=== PATIENT | female | born 1955 | race Caucasian/White ===

== ENCOUNTER → 2018-10-09 17:34 | Outpatient (CLI) | payer MEDICARE, SELFPAY ==
[2018-10-09 18:15] LABS: Basophils # 0.1 K/mm3 (0-0.2); Basophils % 0.9 % (0.1-2.0); Eosinophils # 0.2 K/mm3 (0.0-0.4); Eosinophils % 2.1 % (0.1-12.0); Hematocrit 45.7 % (37.0-47.0); Hemoglobin 14.4 g/dL (12.2-16.2); Lymphocytes # 3.8 K/mm3 (0.7-4.5); Lymphocytes % 36.8 % (10-50); Mean Corpuscular HGB Conc 31.6 g/dL (31.8-35.4); Mean Corpuscular Volume 91.8 fl (81-99); Monocytes # 0.6 K/mm3 (0.1-1.0); Neutrophils # 5.6 K/mm3 (1.8-7.8); Neutrophils % 54.2 % (37.0-80.0); Platelet Count 415 K/mm3 (142-424); Red Blood Count 4.98 M/mm3 (4.20-5.40); Red Cell Distribution Width 14.6 % (11.5-17.5); White Blood Count 10.3 K/mm3 (4.8-10.8)
[2018-10-09 18:36] LABS: Alanine Aminotransferase 21 U/L (12-78); Albumin Level 3.7 gm/dL (3.4-5.0); Albumin/Globulin Ratio 0.9 (1.1-1.8); Alkaline Phosphatase 108 U/L (46-116); Anion Gap 13.4 mEq/L (5-15); Aspartate Amino Transferase 10 U/L (15-37); Bilirubin,Total 0.4 mg/dL (0.2-1.0); Blood Urea Nitrogen 11 mg/dL (7-18); Calcium 9.3 mg/dL (8.5-10.1); Carbon Dioxide 28 mmol/L (21.0-32.0); Chloride 104 mmol/L (98-107); Chol/HDL Ratio 3.6 (1-3.5); Cholesterol 129 mg/dL (140-200); Creatinine,Serum 1.05 mg/dL (0.55-1.02); Estimated Glomerular Filt Rate 53 ml/min (>60); Free T4 (Free Thyroxine) 1.02 ng/dl (0.76-1.46); GFR (African American) 64 ML/MIN (>60); Glucose 106 mg/dL (74-106); HDL Cholesterol 36 mg/dL (29-89); LDL Cholesterol 67 mg/dL (0-130); Potassium 4.4 mmoL/L (3.5-5.1); Sodium 141 mmol/L (136-145); Total Protein,Serum 7.7 gm/dL (6.4-8.2); Triglycerides 129 mg/dL (30-200); VLDL Cholesterol 26 mg/dL (0-40)
[2018-10-09 20:40] LABS: Hemoglobin A1C 6.1 % (0.0-7.0)
[2018-10-11 17:02] LABS: Microalbumin, Urine <3.0 ug/mL (Not Estab.)
[2018-10-12 10:38] LABS: Vitamin D 25 Hydroxy 21.7 ng/mL (30.0-100.0)
== END ==
PROVIDERS: Visit Provider Emergency Medicine
DX: R53.83 Other fatigue (principal); E13.9 Other specified diabetes mellitus without complications; Z79.84 Long term (current) use of oral hypoglycemic drugs
CPT/HCPCS: 80053; 80061; 82043; 82652; 83036; 84439; 84443; 85025

== ENCOUNTER → 2018-12-08 16:33 | Outpatient (CLI) | payer MEDICARE, SELFPAY ==
[2018-12-08 19:20] LABS: Amphetamine/Metha Screen,Urine Negative ng/mL (<1000); Barbiturates Screen,Urine Negative ng/mL (<200); Benzodiazepines Screen,Urine Negative ng/mL (<200); Cannabinoid Screen,Urine Negative ng/mL (<50); Cocaine Screen,Urine Negative ng/mL (<300); Methadone Screen,Urine Negative ng/mL (<300); Opiate Screen,Urine Negative ng/mL (<300); Phencyclidine Screen,Urine Negative ng/mL (<25)
== END ==
PROVIDERS: Visit Provider Emergency Medicine
DX: Z79.899 Other long term (current) drug therapy (principal)
CPT/HCPCS: 80305

== ENCOUNTER → 2019-01-06 13:43 | Outpatient (CLI) | payer MEDICARE, SELFPAY ==
--- NOTE | 2019-01-06 13:55 | XR_ITS ---
PROCEDURE: XR KNEE RT 4V CLINICAL INDICATION: right knee pain COMPARISON: KNEE3L KNEE-3 VIEWS-LT from 11/16/2013 KNEE3L KNEE-3 VIEWS-LT from 03/22/2014 FINDINGS: No fracture or dislocation. No lytic or blastic change. There is normal mineralization. Moderate osteoarthritic changes are present involving the medial compartment with mild osteoarthritis of the lateral compartment and patellofemoral joint. There is a loose body is superior to the medial tibial spine which measures approximately 7 mm. Osteophytes are also present at this region. There is mild lateral tibial subluxation Other findings:None. IMPRESSION: Osteoarthritic change with loose body at the tibial spine area Dictated by: Ajay Parmar MD 01/06/2019 16:10 Electronically signed by Ajay Parmar MD in [place] 01/06/2019 16:10
--- NOTE | 2019-01-06 13:55 | XR_ITS ---
PROCEDURE: XR KNEE LT 4V CLINICAL INDICATION: left knee pain Fall with left knee pain COMPARISON: KNEE3L KNEE-3 VIEWS-LT from 11/16/2013 KNEE3L KNEE-3 VIEWS-LT from 03/22/2014 FINDINGS: Moderate osteoarthritic changes are present involving the medial compartment with mild to moderate osteoarthritic change of the lateral compartment and patellofemoral joint. These findings have progressed since the previous exams.. No fracture or dislocation. There is mild lateral tibial subluxation. Calcification is present along the medial femoral condyle and may be due to an old ligamentous injury. Other findings:None. IMPRESSION: Moderate osteoarthritic changes which have somewhat progressed Dictated by: Ajay Parmar MD 01/06/2019 16:13 Electronically signed by Ajay Parmar MD in [place] 01/06/2019 16:13
--- NOTE | 2019-01-06 14:15 | XR_ITS ---
PROCEDURE: XR HIP RT 2-3V W/PELVIS CLINICAL INDICATION: right hip pain Right hip pain with limited mobility COMPARISON: PELAP PELVIS AP ONLY from 05/18/2012 FINDINGS: There are mild osteoarthritic changes of the right hip. No fracture or dislocation evident. IMPRESSION: Mild osteoarthritis right hip Dictated by: Ajay Parmar MD 01/06/2019 16:07 Electronically signed by Ajay Parmar MD in [place] 01/06/2019 16:07
--- NOTE | 2019-01-06 14:15 | XR_ITS ---
PROCEDURE: XR HIP LT 2-3V W/PELVIS CLINICAL INDICATION: left hip pain COMPARISON: PELAP PELVIS AP ONLY from 05/18/2012 FINDINGS: No fracture or dislocation. There are mild osteoarthritic changes of the left hip. No lytic or blastic change. There is a clip in the left pelvic region. IMPRESSION: Mild osteoarthritis left hip Dictated by: Ajay Parmar MD 01/06/2019 16:08 Electronically signed by Ajay Parmar MD in [place] 01/06/2019 16:08
== END ==
PROVIDERS: PCP Emergency Medicine; Visit Provider Orthopaedic Surgery
DX: M25.562 Pain in left knee (principal); M25.561 Pain in right knee; M25.552 Pain in left hip; M25.551 Pain in right hip
CPT/HCPCS: 73502; 73564

== ENCOUNTER → 2019-04-05 17:49 | Outpatient (CLI) | payer MEDICARE, MEDICAID, SELFPAY ==
[2019-04-05 19:45] LABS: Amphetamine/Metha Screen,Urine Negative ng/mL (<1000); Barbiturates Screen,Urine Negative ng/mL (<200); Benzodiazepines Screen,Urine Negative ng/mL (<200); Cannabinoid Screen,Urine Negative ng/mL (<50); Cocaine Screen,Urine Negative ng/mL (<300); Methadone Screen,Urine Negative ng/mL (<300); Opiate Screen,Urine Negative ng/mL (<300); Phencyclidine Screen,Urine Negative ng/mL (<25)
[2019-04-12 17:09] LABS: Opiates Negative (Cutoff=100)
== END ==
PROVIDERS: Visit Provider Emergency Medicine
DX: M25.512 Pain in left shoulder (principal); Z79.899 Other long term (current) drug therapy
CPT/HCPCS: 80305; 80361; 80365; G0480

== ENCOUNTER 2019-06-12 18:34 | Emergency (ER) | payer MEDICARE, SELFPAY ==
[2019-06-12 19:01] VITALS: BP 191/89; PULSE 75; RESP 18; TEMP 36.5; O2SAT 98; BMI 37.5
--- NOTE | 2019-06-12 19:08 | XR_ITS ---
PROCEDURE: XR CHEST PORTABLE CLINICAL HISTORY: sob and fever for 3 weeks COMPARISON: CXR1 CHEST-PORTABLE from 04/08/[address] CHEST W/O CONTRAST from 03/22/2014 XR CHEST 2V from 03/07/2019 XR CHEST PORTABLE from 06/02/2019 FINDINGS: The lung mcclure are well expanded. There is slightly prominent bronchovascular markings in the right perihilar region and right lower lobe more so than was seen on the recent chest film of 06/02/2019. The right upper lung field and left lung mcclure are clear. The cardiac silhouette and vascularity are normal, there is no pleural fluid. There monitor lines overlying the chest. IMPRESSION: Somewhat accentuated bronchovascular markings and scattered opacities at the right base and and a minimal pneumonic infiltrate cannot be excluded Dictated by: Dr. Collins Espinal MD 06/12/2019 20:[address] Collins Espinal MD in [place] 06/12/2019 20:41
--- NOTE | 2019-06-12 19:09 | ECG_ITS ---
APPROVED REPORT Exam: Resting ECG HR:72 bpm ECG Measurements Heart Rate 72 AXES LA 136 P QRSd 86 QRS -40 QT 404 T -15 QTc 442 <Conclusion> Normal sinus rhythm Left axis deviation Nonspecific ST-T wave abnormalities Abnormal ECG Electronically signed by : Jadiel Jones, 06/13/2019 21:07:16
--- NOTE | 2019-06-12 19:20 | PC.NURSE ---
received report from rn that previous iv attempts unsuccessful. appropriate ppe donned and iv placed to right forearm. blood, strep and flu obtained and sent to lab. pt repositioned in bed, no acute distress. some anxiety noted. discussed process of receiving results and ed physician coming in to talk to her. call light in reach. no additional requests at this time
--- NOTE | 2019-06-12 19:25 | HMH.EDSOB ---
ED Disposition Condition on Discharge: Good <Colten Ayala - Last Filed: 06/12/19 19:25> - Critical Care Critical Care Time: No <Jarvis Charlton - Last Filed: 06/12/19 20:31> Clinical Impression: Viral URI with cough Disposition: Home, Self-Care Instructions: DI for Cough -- Adult Additional Instructions: fluids and see pcp for follow up Referrals: Bennett Thomas MD [Primary Care Provider] - Attestation: On 06/12/19, the high probability of a clinically significant, sudden or life threatening deterioration of the following system(s) required my full and direct attention, intervention and personal management. The time I documented below is in addition to time spent performing reported procedures but includes the following listed in this critical care notation. Medical Decision Making - Medical Records Medical records reviewed: Yes: I reviewed the patient's medical records. - Ajit Inquiry Pt receiving controlled substance: No - Lab Data Lab results reviewed: Yes: I reviewed the patient's lab results. <Colten Ayala - Last Filed: 06/12/19 19:25> - Lab Data Result diagrams: 06/12/19 19:45 06/12/19 19:45 <Jarvis Charlton - Last Filed: 06/12/19 20:31> Vital Signs: 06/12/19 19:01 06/12/19 19:45 06/12/19 20:05 Temperature 97.7 F Temperature Source Oral Pulse Rate [Left Brachial] 75 74 71 Respiratory Rate 18 20 20 Blood Pressure [Right Arm] 191/89 H 154/100 H 173/84 H Blood Pressure Mean [Right Arm] 123 118 113 Blood Pressure Source [Right Arm] Manual Cuff/ Palpation Blood Pressure Position [Right Arm] Sitting 02 Sat by Pulse Oximetry 98 97 98 Oxygen Delivery Method Room Air Room Air Room Air - Lab Data Lab Results 06/12/19 18:55: Influenza Type A Ag Negative, Influenza Type B Ag Negative 06/12/19 19:45: WBC 11.8 H, RBC 4.25, Hgb 12.8, Hct 38.8, MCV 91.3, MCH 30.0, MCHC 32.9, RDW 13.3, Plt Count 354, MPV 9.0, Neut % (Auto) 61.7, Lymph % (Auto) 30.1, [place] % (Auto) 5.1, Eos % (Auto) 2.3, Baso % (Auto) 0.8, Neut # (Auto) 7.3, Lymph # (Auto) 3.6, [place] # (Auto) 0.6, Eos # (Auto) 0.3, Baso # (Auto) 0.1 06/12/19 19:45: Sodium 134 L, Potassium 3.9, Chloride 100, Carbon Dioxide 27, Anion Gap 10.9, BUN 12, Creatinine 0.80, Estimated Creat Clear 92, Estimated GFR 72, Est GFR ( Amer) 87, Glucose 89, Calcium 9.6, Total Bilirubin 0.4, AST 22, ALT 14, Alkaline Phosphatase 80, Troponin I < 0.01, Total Protein 7.3, Albumin 4.1, Globulin 3.2, Albumin/Globulin Ratio 1.3 06/12/19 19:45: Lactate 1.1 06/12/19 20:14: Group A Strep Rapid Negative Orders (Tests/Meds): ORDERS Category Date Time Status Chest XR -- portable [XR chest portable] Stat Exams 06/12/19 19:08 Taken SARS-CoV-2, BARTOLOME Stat Lab 06/12/19 20:04 Ordered Troponin I Q3H Lab 06/12/19 22:15 Ordered Troponin I Q3H Lab 06/13/19 01:15 Ordered Blood Culture Stat Micro 06/12/19 19:43 Received Strep Screen Confirmation Stat Micro 06/12/19 20:14 Received Resp/SOB HPI - General Mode of Arrival: Ambulatory Limitations: No Limitations Description of Symptoms (Recalled from ER Triage Doc. by RN): to ed per pvt car with c/o cough, generalized weakness and pain, intermittent fever up to 101, sob, diarrhea, headache, sorethroat, chills. pt states seen by pcp 1 week ago and dx with bronchitis pt states she was seen at the [facility] 1 week ago unsure of results. pt states she is progressively worse. <Colten Ayala - Last Filed: 06/12/19 19:25> - History of Present Illness MD Complaint: shortness of breath, cough Onset (ago): day(s) Severity: moderate Associated symptoms: denies other symptoms - Related Data Home oxygen amount: none <Jarvis Charlton - Last Filed: 06/12/19 20:31> - General Chief Complaint: Shortness of Breath/Dyspnea Stated Complaint: possible bronc. lung pain Time Seen by Provider: 06/12/19 19:20 - History of Present Illness 64-year-old female presents here to the ED with increased conge
--- NOTE | 2019-06-12 19:32 | PC.NURSE ---
RN at the bedside attempting IV stick
--- NOTE | 2019-06-12 19:32 | PC.NURSE ---
v/s delayed due to IV attempts
[2019-06-12 19:45] VITALS: BP 154/100; PULSE 74; RESP 20; O2SAT 97
[2019-06-12 19:57] LABS: Basophils # 0.1 K/mm3 (0-0.2); Basophils % 0.8 % (0.1-2.0); Eosinophils # 0.3 K/mm3 (0.0-0.4); Eosinophils % 2.3 % (0.1-12.0); Hematocrit 38.8 % (37.0-47.0); Hemoglobin 12.8 g/dL (12.2-16.2); Lymphocytes # 3.6 K/mm3 (0.7-4.5); Lymphocytes % 30.1 % (10-50); Mean Corpuscular HGB Conc 32.9 g/dL (31.8-35.4); Mean Corpuscular Volume 91.3 fl (81-99); Monocytes # 0.6 K/mm3 (0.1-1.0); Monocytes % 5.1 % (1.7-9.3); Neutrophils # 7.3 K/mm3 (1.8-7.8); Neutrophils % 61.7 % (37.0-80.0); Platelet Count 354 K/mm3 (142-424); Red Blood Count 4.25 M/mm3 (4.20-5.40); Red Cell Distribution Width 13.3 % (11.5-17.5); White Blood Count 11.8 K/mm3 (4.8-10.8)
[2019-06-12 19:58] LABS: Lactic Acid 1.1 mmol/L (0.7-2.1)
--- NOTE | 2019-06-12 19:58 | PC.NURSE ---
rad iology at bedside for portable chest. appropriate ppe worn during exam.
[2019-06-12 20:00] LABS: Alanine Aminotransferase 14 U/L (12-78); Albumin Level 4.1 g/dl (3.5-5.0); Albumin/Globulin Ratio 1.3 (1.1-1.8); Alkaline Phosphatase 80 U/L (38-126); Anion Gap 10.9 mEq/L (5-15); Aspartate Amino Transferase 22 U/L (14-36); Bilirubin,Total 0.4 mg/dl (0.2-1.3); Blood Urea Nitrogen 12 mg/dl (7-17); Calcium 9.6 mg/dl (8.4-10.2); Carbon Dioxide 27 mmol/L (22.0-30.0); Chloride 100 mmol/L (98-107); Creatinine Clearance Estimated 92 mL/min (50-200); Estimated Glomerular Filt Rate 72 ml/min (>60); GFR (African American) 87 ML/MIN (>60); Globulin 3.2 g/dL (1.3-3.2); Glucose 89 mg/dl (74-100); Potassium 3.9 mmoL/L (3.5-5.1); Sodium 134 mmol/L (136-145); Total Protein,Serum 7.3 g/dl (6.3-8.2)
--- NOTE | 2019-06-12 20:04 | PC.NURSE ---
discussed covid testing with covid nursing. order placed per md recommendation r/t symptoms
[2019-06-12 20:05] VITALS: BP 173/84; PULSE 71; RESP 20; O2SAT 98
[2019-06-12 20:13] LABS: Troponin I < 0.01 ng/ml (0.00-0.034)
--- NOTE | 2019-06-12 20:15 | PC.NURSE ---
pt requests we discuss care with myesha, her niece who also lives with her. explained to niece that patient was stable and awaiting test results. covid nurse made aware of physicians request to test. paperwork initiated. lab notified of test. waiting on strep screen prior to test.
[2019-06-12 20:25] LABS: Strep Scrn Group A (Rapid) Negative (Negative)
[2019-06-12 20:38] VITALS: BP 184/121; PULSE 76; RESP 17; TEMP 36.9; O2SAT 100
--- NOTE | 2019-06-12 20:38 | PC.NURSE ---
covid swab obtained per lab, [facility]. ppe worn during procedure. iv removed per protocol after given meds. pt discharge discussed at length to self quarantine inside home. information given to myesha, her niece as requested. all have been advised that covid nurse will contact them when results come back.
--- NOTE | 2019-06-12 20:40 | PC.NURSE ---
pt ambulated out of facility without difficulty. no acute distress noted. given a mask for her family members in her household (2). instructed on handwashing. no dyspnea. no additional complaints. verbalizes understanding
--- NOTE | 2019-06-16 17:24 | PC.NURSE ---
notified patient of negative COVID 19 results.
--- NOTE | 2019-06-16 17:25 | PC.NURSE ---
notified of negative COVID 19 results
[2019-06-16 17:31] LABS: Covid-19 Nasal PCR Sendout Lex NOT DETECTED
== END 2019-06-12 20:45 | disposition home or self-care (01) ==
PROVIDERS: Emergency Medicine; Emergency Provider Family Medicine; PCP Internal Medicine Adolescent Medicine
DX: J06.9 Acute upper respiratory infection, unspecified (principal); E11.9 Type 2 diabetes mellitus without complications; K21.9 Gastro-esophageal reflux disease without esophagitis; F41.9 Anxiety disorder, unspecified; Z90.09 Acquired absence of other part of head and neck; Z90.79 Acquired absence of other genital organ(s); Z79.899 Other long term (current) drug therapy
CPT/HCPCS: 71045; 80053; 83605; 84484; 85025; 87040; 87275; 87276; 87430; 93005; 96365; 96374; 96375; 99284

== ENCOUNTER → 2019-10-29 17:48 | Outpatient (CLI) | payer MEDICARE, MEDICAID, SELFPAY ==
[2019-10-29 18:12] LABS: Basophils # 0.1 K/mm3 (0-0.2); Basophils % 0.5 % (0.1-2.0); Eosinophils # 0.3 K/mm3 (0.0-0.4); Eosinophils % 2.6 % (0.1-12.0); Hematocrit 37.8 % (37.0-47.0); Hemoglobin 12.6 g/dL (12.2-16.2); Lymphocytes # 2.5 K/mm3 (0.7-4.5); Lymphocytes % 21.9 % (10-50); Mean Corpuscular HGB Conc 33.4 g/dL (31.8-35.4); Mean Corpuscular Hemoglobin 31.1 pg (27.0-31.2); Mean Corpuscular Volume 93.2 fl (81-99); Mean Platelet Volume 10.4 fl (7.4-10.4); Monocytes # 0.5 K/mm3 (0.1-1.0); Monocytes % 4.1 % (1.7-9.3); Neutrophils % 70.9 % (37.0-80.0); Platelet Count 298 K/mm3 (142-424); Red Blood Count 4.06 M/mm3 (4.20-5.40); Red Cell Distribution Width 13.8 % (11.5-17.5); White Blood Count 11.3 K/mm3 (4.8-10.8)
[2019-10-29 18:14] LABS: Chloride 106 mmol/L (98-107)
[2019-10-29 18:15] LABS: Potassium 4.4 mmoL/L (3.5-5.1); Sodium 141 mmol/L (136-145)
[2019-10-29 18:17] LABS: Alanine Aminotransferase 14 U/L (12-78); Alkaline Phosphatase 94 U/L (38-126); Anion Gap 13.4 mEq/L (5-15); Aspartate Amino Transferase 20 U/L (14-36); Bilirubin,Total 0.3 mg/dl (0.2-1.3); Blood Urea Nitrogen 21 mg/dl (7-17); Carbon Dioxide 26 mmol/L (22.0-30.0); Cholesterol 127 mg/dl (140-200); Estimated Glomerular Filt Rate 50 ml/min (>60); GFR (African American) 61 ML/MIN (>60); Triglycerides 104 mg/dl (30-150); VLDL Cholesterol 21 mg/dL (0-40)
[2019-10-29 18:18] LABS: Albumin Level 3.7 g/dl (3.5-5.0); Albumin/Globulin Ratio 1.3 (1.1-1.8); Calcium 9.3 mg/dl (8.4-10.2); Chol/HDL Ratio 3.4 (1-3.5); Globulin 2.8 g/dL (1.3-3.2); Glucose 138 mg/dl (74-100); HDL Cholesterol 37 mg/dl (40-60); Total Protein,Serum 6.5 g/dl (6.3-8.2)
[2019-10-29 18:37] LABS: T4 (Thyroxine) 8.5 ug/dl (5.53-11.0)
[2019-10-29 18:50] LABS: Thyroid Stimulating Hormone 1.75 uIU/mL (0.465-4.68)
[2019-10-29 18:59] LABS: Direct LDL Cholesterol 75.66 mg/dL (100-129)
== END ==
PROVIDERS: Visit Provider Nurse Practitioner Family
DX: E11.9 Type 2 diabetes mellitus without complications (principal); I10 Essential (primary) hypertension; M54.9 Dorsalgia, unspecified; E66.9 Obesity, unspecified; Z79.84 Long term (current) use of oral hypoglycemic drugs
CPT/HCPCS: 80053; 80061; 83036; 84436; 84443; 85025

== ENCOUNTER → 2020-01-06 10:27 | Outpatient (CLI) | payer MEDICARE, MEDICAID, SELFPAY ==
--- NOTE | 2020-01-06 | CA_ITS ---
APPROVED REPORT Exam: Pharmacologic Technologist: Dorcas García, Ht: 5 ft 6 in Wt: 233 lbs BSA: 2.13 m2 HR: 52 bpm BP: 167/72 mmHg Rhythm: NSR,LOW VOLTAGE QRS Medical History Medical History: HTN, Hyperlipidemia, Diabetic ??? Noninsulin Medications: Lisinopril,,,,, Metformin,,,,, Gabapentin,,,,, Lexapro,,,,, Atorvastatin,,,,, Iron,,,,, Lasix,,,,, Albuterol,,,,, Plavix,,,,, CitrIZINE,,,,, Vistaril,,,,, Aripiprazole,,,,, Allergies: No known drug allergies Cardiac Risk Factors: HTN, Hyperlipidemia, Diabetes (non-insulin), FHX of CAD Stress Test Details Test: LEXISCAN HR Resting HR: 53 bpm Max Heart Rate (APMHR): 156 bpm Max HR Achieved: 75 bpm Target HR (85% APMHR): 132 bpm % of APMHR: 48 Recovery HR: 61 bpm BP Resting BP: 167.0/72.0 mmHg Max BP: 167.0/72.0 mmHg Recovery BP: 167.0/71.0 mmHg ECG Resting ECG: NSR,LOW VOLTAGE QRS Clinical Exercise duration: 04:11 min Highest Stage Achieved: Exercise capacity: 1.0 METs Stress ECG Conclusion DURING INFUSION PATIENT HAD SOA AND MALAISE. NO CHEST PAIN. NO ARRHYTHMIAS/ECTOPY. NO SIGNIFICANT CHANGES. UNREMARKABLE LEXISCAN STRESS. MYOVIEW IMAGES REPORTED SEPARATELY. Electronically signed by : Marcelino Chu, 01/06/2020 16:24:13
--- NOTE | 2020-01-06 10:28 | CA_ITS ---
APPROVED REPORT EXAM: Comprehensive 2D, Doppler, and color-flow Echocardiogram Taxi Servicer: Yessy Long RVT Ht: 5 ft 6 in Wt: 235lbs BSA: 2.14 BP: 130/68 mmHg Indications: CP,PRE-OP.DM.HTN.HLD.SOA.[place],OBESITY,MELIA 2D Dimensions LVOT 2.01 cm (M/F) 1.5-2.5 M-Mode Dimensions RVDd 2.77 cm (0.9-2.6) LA Diam 3.96 cm (1.9-4.0) LVDd 4.82 cm (3.5-5.7) Ao Diam 2.55 cm (2.0-3.7) LVDs 3.26 cm (3.5-5.7) IVSd 0.53 cm (0.6-1.1) PWd 1.56 cm (0.6-1.1) EF (Teich) 60.60% FS 32.40% EDV (Teich) 108.60 mL ESV (Teich) 42.80 mL LV Diastology E Decel Time 390.00 (160-240 msec) E/A Ratio 1.0 MED E' 6.50 (< 7 cm/sec) E'/MED E' Ratio 15.86 (>14) LAT E' 7.80 (<10 cm/sec) E/LAT E' Ratio 13.22 (>14) Mitral Valve MV E Max Chin. 103.00 (40-130 cm/s) MV A Velocity 107.00 (40-130 cm/s) E/A Ratio 0.97 MV Decel. Time 390.00 (160-240 ms) MV PHT 114.00 ms Pulmonary Valve PV Peak Velocity 81.00 (50-150 cm/s) Tricuspid Valve TR P. Velocity 266.00 cm/s Left Ventricle Left atrium is mildly enlarged, left ventricle is normal size, mild concentric left ventricular hypertrophy, visually estimated ejection fraction 50% with no regional wall motion abnormality, grade 1 diastolic dysfunction seen with tissue Doppler evidence of raise left atrial pressure. Right Ventricle Right atrium and right ventricle are mildly enlarged with normal contractility. Aortic Valve Aortic valve is minimally thickened and fibrosed, there is no aortic stenosis or aortic insufficiency. Mitral Valve Mitral valve grossly normal, there is mild mitral regurgitation. Tricuspid Valve Tricuspid valve grossly normal, there is mild tricuspid regurgitation, tricuspid regurgitation jet velocity is inadequate for calculation of the right ventricular systolic pressure. Pulmonic Valve Pulmonic valve is poorly visualized. Great Vessels Aortic root is normal size. Pericardium No significant pericardial effusion noted. Conclusion 1. Biatrial enlargement, normal left ventricular size, mild concentric left ventricular hypertrophy, visually estimated ejection fraction 50% with no regional wall motion abnormality, grade 1 diastolic dysfunction seen with tissue Doppler evidence of raise left atrial pressure. 2. Mildly enlarged right ventricle with normal contractility. 3. Mild mitral and tricuspid regurgitation. 4. No significant pericardial effusion noted. Electronically signed by : Marcelino Chu, 01/06/2020 16:14:55
--- NOTE | 2020-01-06 10:54 | NM_ITS ---
APPROVED REPORT Exam: Nuclear Stress Test Indication: HTN, D.M., FM HX, PRE-OP Patient Location: Outpatient Stress Tech: Jodiskinny Nina IA Tech:Luisa Canales AYANAMichael RT(R)(N) Ht: 5 ft 5 in Wt: 219 lbs Bra Size: 44D HR: 52 bpm BP: 167/72 mmHg BSA: 2.06 m2 BMI: 36.4 History: HTN, NeishaM., FM HX, PRE-OP Procedure: Patient received a 0.4 mg of intravenous Lexiscan, resting heart rate 52 bpm, resting blood pressure 167/72 mmHg, with Lexiscan maximum heart rate achived was 72 bpm which is Less than 85 % of the maximum predicted heart rate and blood pressure was 160/64 mmHg. With Lexiscan, patient denied any complaint of chest pain. Electrocardiogram Resting electrocardiogram showed sinus rhythm, with Lexiscan there is less than 1.[address] segment depression noted from the baseline EKG. The EKG portion of the Lexiscan Myoview is nondiagnostic. Cardiac Stress and Resting SPECT Images: Cardiac Stress and Resting SPECT images were obtained using technetium 99m Myoview 32.9 mCi stress and 10.89 mCi at rest. Gated SPECT for analysis of segmental wall motion and calculation of the ejection fraction also done. Cardiac stress and resting SPECT images show uniform myocardial activity without segmental perfusion abnormality, computer derived ejection fraction is 61% with no regional wall motion abnormality, right ventricle is normal size and contractility. Conclusion: 1. The EKG portion of the Lexiscan Myoview is nondiagnostic 2. No scintigraphic evidence of reversible ischemia seen, computer derived ejection fraction 61% with no regional wall motion abnormality, right ventricle is normal size and contractility. 3. Normal Lexiscan Myoview study. Electronically signed by : Marcelino Chu, 01/06/2020 16:27:26
--- NOTE | 2020-01-06 13:38 | HMH.ITSHM ---
Current Home Medications as stated by this patient Celina Paredes or sales representative gas service. [] atenolol budesonide cetirizine clopidgrel gabapentin trazodone metformin
== END ==
PROVIDERS: PCP Emergency Medicine; Visit Provider Physician Assistant
DX: E13.9 Other specified diabetes mellitus without complications (principal); E66.9 Obesity, unspecified; G47.33 Obstructive sleep apnea (adult) (pediatric); I10 Essential (primary) hypertension; R06.00 Dyspnea, unspecified; R07.89 Other chest pain; Z01.810 Encounter for preprocedural cardiovascular examination; Z82.49 Family history of ischemic heart disease and other diseases of the circulatory system; Z87.891 Personal history of nicotine dependence
CPT/HCPCS: 78452; 93017; 93306; A9502; J2785

== ENCOUNTER → 2020-06-14 14:19 | Outpatient (CLI) | payer MEDICARE, MEDICAID, SELFPAY ==
[2020-06-14 14:34] LABS: Microscopic, Urine URINE MICROSCOPIC (MICROSCOPIC)
--- NOTE | 2020-06-14 14:46 | XR_ITS ---
PROCEDURE: XR KNEE LT 4V CLINICAL INDICATION: templating marker for total knee arthroplasty Pain COMPARISON: CR XR KNEE RT 4V from 01/06/2019 CR XR KNEE LT 4V from 01/06/2019 CR XR KNEE RT 3V from 03/16/2019 CR XR KNEE LT 3V from 03/16/2019 FINDINGS: Severe osteoarthritic changes are present involving the left knee involving all 3 compartments. There is lateral subluxation of the tibia by approximately 9 mm. There are images also obtained for templating with metallic rounded marker in place along the lateral aspect of the knee joint and at the patella and infrapatellar region. Lucency is noted in the subarticular region of the right femoral condyle suspicious for an area of osteo chondrosis desiccans measuring 14 mm in with. This was not readily apparent on the previous exam. The osteoarthritic changes also appear somewhat progressed compared to 03/16/2019 Other findings:None. IMPRESSION: Severe osteoarthritis. Images submitted for templating. Lateral tibial subluxation. 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
--- NOTE | 2020-06-14 14:46 | XR_ITS ---
PROCEDURE: XR CHEST 2V CLINICAL HISTORY: preop; hypertension COMPARISON: CT [facility] CT CHEST W/O CONTRAST from 03/22/2014 CR XR CHEST 2V from 03/07/2019 CR XR CHEST PORTABLE from 06/02/2019 CR XR CHEST PORTABLE from 06/12/2019 FINDINGS: The cardiomediastinal silhouette and pulmonary vascularity are within normal limits. The lungs are clear without infiltrates, suspicious nodules, or pleural effusions. There are osteoarthritic changes of the left shoulder. Degenerative changes are present in the thoracic spine. IMPRESSION: No acute findings. Dictated by: Ajay Parmar MD 06/14/2020 15:59 Ajay Parmar MD in [place] 06/14/2020 15:59
[2020-06-14 15:35] LABS: Basophils # 0.1 K/mm3 (0-0.2); Eosinophils # 0.3 K/mm3 (0.0-0.4); Eosinophils % 2.4 % (0.1-12.0); Hematocrit 43.1 % (37.0-47.0); Hemoglobin 13.8 g/dL (12.2-16.2); Lymphocytes # 3.4 K/mm3 (0.7-4.5); Lymphocytes % 25.6 % (10-50); Mean Corpuscular Hemoglobin 29.5 pg (27.0-31.2); Mean Corpuscular Volume 92.4 fl (81-99); Mean Platelet Volume 9.7 fl (7.4-10.4); Monocytes # 0.6 K/mm3 (0.1-1.0); Monocytes % 4.3 % (1.7-9.3); Neutrophils # 8.9 K/mm3 (1.8-7.8); Neutrophils % 66.7 % (37.0-80.0); Platelet Count 361 K/mm3 (142-424); Red Blood Count 4.66 M/mm3 (4.20-5.40); White Blood Count 13.3 K/mm3 (4.8-10.8)
[2020-06-14 15:40] LABS: Appearance,Urine CLEAR (Clear); Bilirubin,Urine Negative (Negative); Blood, Urine Negative (Negative); Color,Urine YELLOW (Yellow); Glucose,Urine (UA) Negative (Negative); Ketones,Urine Negative (Negative); Leukocyte Esterase,Urine Negative (Negative); Nitrate,Urine Negative (Negative); Protein,Urine 1+ (Negative); Specific Gravity, Urine >= 1.030 (1.005-1.030); Urobilinogen,Urine 0.2 EU/dl (0.2)
[2020-06-14 16:06] LABS: Chloride 106 mmol/L (98-107); Potassium 4.4 mmoL/L (3.5-5.1); Sodium 141 mmol/L (136-145)
[2020-06-14 16:08] LABS: Blood Urea Nitrogen 16 mg/dl (7-17); Estimated Glomerular Filt Rate 50 ml/min (>60); GFR (African American) 60 ML/MIN (>60)
[2020-06-14 16:09] LABS: Alanine Aminotransferase 22 U/L (12-78); Albumin Level 4.3 g/dl (3.5-5.0); Albumin/Globulin Ratio 1.6 (1.1-1.8); Alkaline Phosphatase 73 U/L (38-126); Anion Gap 17.4 mEq/L (5-15); Aspartate Amino Transferase 24 U/L (14-36); Bilirubin,Total 0.4 mg/dl (0.2-1.3); Calcium 9.5 mg/dl (8.4-10.2); Carbon Dioxide 22 mmol/L (22.0-30.0); Globulin 2.7 g/dL (1.3-3.2); Glucose 104 mg/dl (74-100)
[2020-06-14 16:14] LABS: Hemoglobin A1C 5.8 % (4.0-6.0)
[2020-06-14 17:16] LABS: Bacteria,Urine 2+ /lpf; RBC,Urine Occasional #/hpf (0-3)
== END ==
PROVIDERS: PCP Nurse Practitioner Family; Visit Provider Orthopaedic Surgery
DX: Z01.818 Encounter for other preprocedural examination (principal); M25.562 Pain in left knee; E13.9 Other specified diabetes mellitus without complications; Z79.84 Long term (current) use of oral hypoglycemic drugs
CPT/HCPCS: 36415; 71046; 73564; 80053; 81001; 83036; 85025; 87086

== ENCOUNTER → 2020-06-23 12:14 | Outpatient (CLI) | payer MEDICARE, MEDICAID, SELFPAY ==
[2020-06-23 13:51] LABS: Hemoglobin A1C 5.8 % (4.0-6.0)
[2020-06-23 14:24] LABS: Basophils # 0.1 K/mm3 (0-0.2); Basophils % 0.6 % (0.1-2.0); Eosinophils # 0.2 K/mm3 (0.0-0.4); Hematocrit 40.4 % (37.0-47.0); Hemoglobin 13.1 g/dL (12.2-16.2); Lymphocytes # 2.5 K/mm3 (0.7-4.5); Lymphocytes % 23.5 % (10-50); Mean Corpuscular HGB Conc 32.4 g/dL (31.8-35.4); Mean Corpuscular Volume 92.6 fl (81-99); Mean Platelet Volume 9.5 fl (7.4-10.4); Monocytes # 0.4 K/mm3 (0.1-1.0); Monocytes % 4.2 % (1.7-9.3); Neutrophils # 7.4 K/mm3 (1.8-7.8); Neutrophils % 69.7 % (37.0-80.0); Platelet Count 327 K/mm3 (142-424); Red Blood Count 4.36 M/mm3 (4.20-5.40); Red Cell Distribution Width 14.2 % (11.5-17.5); White Blood Count 10.6 K/mm3 (4.8-10.8)
== END ==
PROVIDERS: PCP Nurse Practitioner Family; Visit Provider Orthopaedic Surgery
DX: M25.562 Pain in left knee (principal); Z01.818 Encounter for other preprocedural examination; E13.9 Other specified diabetes mellitus without complications; E78.5 Hyperlipidemia, unspecified; Z20.822 Contact with and (suspected) exposure to COVID-19
CPT/HCPCS: 36415; 83036; 85025; 86850; U0003

== ENCOUNTER 2020-06-26 07:10 | Observation (INO) | payer MEDICARE, MEDICAID, SELFPAY ==
[2020-06-23 12:24] VITALS: BMI 33.5
[2020-06-26] VITALS (17 sets, daily range): BP systolic 118–178; BP diastolic 66–92; PULSE 57–85; RESP 12–20; TEMP 36.2–38; O2SAT 93–98
[2020-06-26 08:06] LABS: POC Glucose,Bedside 130 (70-110)
--- NOTE | 2020-06-26 08:50 | ECG_ITS ---
APPROVED REPORT Exam: Resting ECG HR:79 bpm ECG Measurements Heart Rate 79 AXES VA 152 P -3 QRSd 86 QRS -26 QT 380 T 9 QTc 435 Conclusion Normal sinus rhythm Normal ECG Electronically signed by : Bennett Thomas, 06/26/2020 18:04:35
[2020-06-26 08:52] LABS: Basophils # 0.1 K/mm3 (0-0.2); Basophils % 0.7 % (0.1-2.0); Eosinophils # 0.3 K/mm3 (0.0-0.4); Eosinophils % 2.4 % (0.1-12.0); Hematocrit 38.8 % (37.0-47.0); Hemoglobin 12.6 g/dL (12.2-16.2); Lymphocytes # 3.4 K/mm3 (0.7-4.5); Lymphocytes % 28.7 % (10-50); Mean Corpuscular HGB Conc 32.6 g/dL (31.8-35.4); Mean Corpuscular Hemoglobin 30.3 pg (27.0-31.2); Mean Corpuscular Volume 92.8 fl (81-99); Mean Platelet Volume 10.4 fl (7.4-10.4); Monocytes # 0.7 K/mm3 (0.1-1.0); Monocytes % 5.7 % (1.7-9.3); Neutrophils # 7.5 K/mm3 (1.8-7.8); Neutrophils % 62.5 % (37.0-80.0); Platelet Count 305 K/mm3 (142-424); Red Blood Count 4.18 M/mm3 (4.20-5.40); Red Cell Distribution Width 13.9 % (11.5-17.5)
--- NOTE | 2020-06-26 10:06 | HMH.ANESCL ---
[facility] Anesthesia Checklist - Structural Data Admitted From: Home Planned Operative Procedure/s: l tka Consent for Planned Operative Procedure(s) Verified: Yes - Additional verifications Anesthesia Reactions: No Hx Blood Transfusions: No Blood Transfusion Reaction: No - Airway Assessment C-Spine Mobility Assessed: Yes TMJ Mobility Assessed: Yes Dentition: Edentulous - Neurological Assessment Level of Consciousness: Awake, Alert, Appropriate - Anesthesia Plan Anesthesia Risk discussed: Yes Anesthesia Plan: Verified Anesthesia Type: MAC w/Spinal [facility] History I have reviewed the patient's past medical history: Yes Medical History: Reports:: Anxiety, Asthma, Diabetes Mellitus Type 2, Gastroesophageal Reflux Disease(GERD), Hyperlipidemia, Hypertension, Migraine Denies:: Cancer, Diabetes Mellitus Type 1, Internal Pacemaker, MRSA, Seizures *Have you ever received a pneumonia vaccine?: No *Have you received a flu vaccine this season?: No Other Medical History: Reports: Arthritis, Thyroid Disease. Denies: Blood Transfusion Reaction Anesthesia experience/problems:: none Laterality Cases: Bilateral: Tonsillectomy Other Surgeries: Yes: Hysterectomy-Total, Other. No: Pacemaker Amputation: No Fractures: No - *Social History Last grade of school completed: High school graduate Smoking Status: Never smoker Alcohol Intake: never Substance Use Type: denies use *Occupational Status:: other Housing: other Household Members: friend(s) *Travel in the last 8 weeks: None - Psychiatric History Pschychiatric History:: Reports:: Anxiety Family Hx:: Cancer, Diabetes, Heart Attack, Hypertension, Thyroid Disorder, Hyperlipidemia
--- NOTE | 2020-06-26 13:26 | HMH.ANESI ---
[facility] Anesthesia Record Part I Intake, IV Amount: 3,500 Estimated blood loss (mL): 100 Urine output (mL): 1,300 Blood Pressure: 118/74 SaO2: 96 Pulse Rate: 70 Respiratory Rate: 12 Temperature: 98.2 F Patient is:: Awake Stable to PACU at:: 13:20
[2020-06-26 13:35] LABS: POC Glucose,Bedside 112 (70-110)
--- NOTE | 2020-06-26 13:35 | XR_ITS ---
PROCEDURE: XR KNEE LT 2V CLINICAL INDICATION: total knee arthroplasty COMPARISON: CR XR KNEE LT 4V from 01/06/2019 CR XR KNEE LT 3V from 03/16/2019 CR XR KNEE RT 3V from 03/16/2019 CR XR KNEE LT 4V from 06/14/2020 FINDINGS: Good alignment status post total knee replacement. No evidence of orthopedic complication. No acute fracture or dislocation. No lytic or blastic change. Postsurgical gas is present IMPRESSION: Good alignment status post total knee replacement. No evidence of orthopedic complication. No acute fracture or dislocation. Dictated by: Ajay Parmar MD 06/26/2020 14:19 Ajay Parmar MD in [place] 06/26/2020 14:19
--- NOTE | 2020-06-26 13:38 | XR_ITS ---
Accession No. : [id number] Patient Name / ID : BERTRAM HO? / [id number] Exam Date : 06/26/2020 13:38:17 ( Final ) FINAL REPORT PROCEDURE: XR KNEE LT 2V CLINICAL INDICATION: total knee arthroplasty COMPARISON: CR XR KNEE LT 4V from 01/06/2019 CR XR KNEE LT 3V from 03/16/2019 CR XR KNEE RT 3V from 03/16/2019 CR XR KNEE LT 4V from 06/14/2020 FINDINGS: Good alignment status post total knee replacement. No evidence of orthopedic complication. No acute fracture or dislocation. No lytic or blastic change. Postsurgical gas is present IMPRESSION: Good alignment status post total knee replacement. No evidence of orthopedic complication. No acute fracture or dislocation. Dictated by: Ajay Parmar MDDictated Dttm: 06/26/2020 14:19 Electronically Signed by: Ajay Parmar MDApproved Dttm: 06/26/2020 14:19 [facility]
--- NOTE | 2020-06-26 14:00 | PC.NURSE ---
PT PRESENTS TO UNIT AT THIS TIME FROM A POST OP LEFT KNEE ARTHROPLASTY. A/OX4 AND REPORTS NO PAIN. PT REPORTS NUMBNESS AND TINGLING IN FEET AND ITCHY IN FEET. UNABLE TO MOVE LOWER EXTREMITIES. PULSES 2+ AND CAP REFILL <3 SECONDS. POLAR PACK APPLIED TO LEFT KNEE PER ORDER. SCHMIDT IN PLACE AND DRAINING CLEAR YELLOW URINE. IV SALINE LOCKED. LEFT KNEE ELEVATED ON PILLOWS. NO CURRENT NEEDS. GOWN CHANGED AND CALL LIGHT WITHIN REACH
--- NOTE | 2020-06-26 14:33 | HMH.OPNOTE ---
Date of procedure: 06/26/20 Pre-op Diagnosis:: Osteoarthritis, left knee Post-op Diagnosis:: Same Procedure performed:: Uncemented total knee arthroplasty, left Surgeon:: Barry Woodard MD Sewing Trimmer(s):: Luisa Carmichael SYSTEMS ARCHITECT:: Mario Alberto Martins Anesthesia: spinal Estimated blood loss (mL): 100 Clinical Note:: Patient is a 65-year-old female with end-stage tricompartmental osteoarthritis and skcm-[id number] changes over the medial compartment with a progressive varus deformity and flexion contracture of her left knee presented with unremitting severe pain not relieved by conservative management. The arthritic process and pain are advanced to the point that it is becoming a hazard for the patient with risk of falling and injuring herself. A total knee arthroplasty is indicated to relieve the pain, improve function, reduce the risk of falls and improve quality of life. She has history of anxiety, hypertension, hyperlipidemia, coronary artery disease, GERD, diabetes mellitus 1.5, COPD, asthma and bronchitis. She is an ex-smoker and stopped smoking many years ago. Please refer to my office note for full details. Operative findings:: As noted on the preoperative evaluation, the knee joint has a fixed flexion of 20? with 10 degrees of fixed varus deformity. As seen on the x-rays, there is tricompartmental degenerative arthritis with the medial and patellofemoral compartments showing more advanced degenerative changes with cfig-jh-[id number] appearance. The menisci and cruciate ligaments are significantly degenerate. There is osteophyte formation over all 3 compartments. Bone quality is good. Operative note:: On the day of the surgery the patient and her friend were seen in the preoperative area. I have again reviewed the clinical and x-ray findings and again discussed the diagnosis, natural history and management options in detail including both nonsurgical and surgical. Patient has end-stage degenerative arthritis of the left knee and has failed to respond satisfactorily to appropriate conservative management so far and has opted for a total knee arthroplasty. The left knee joint is stiff and painful, and is limiting mobility, ADLs and quality of life. Also the knee gives out and patient is at risk of falls resulting in fractures. I have again discussed the details of the procedure, risks and benefits and alternatives in detail. The complications discussed include but are not limited to infection, injury to nerves and blood vessels including injury to popliteal artery, injury to tendons and ligaments, DVT and PE, fat embolism, intraoperative fracture, limb length inequality, patella fracture, patellofemoral instability, patellar clunk syndrome, quadriceps and patellar tendon rupture, implant failure, component loosening, periprosthetic femur and tibia fractures, stiffness /arthrofibrosis, limp, incomplete relief of pain, incomplete functional recovery, likely need for further surgery in future including revision and anesthetic complications including heart attack, stroke and even . We also discussed about the likely need for blood transfusion and transfusion reactions. We discussed how any of these events can be devastating. We have discussed nonsurgical alternatives as well. Patient understands and wishes to proceed with a left total knee arthroplasty as planned and I believe that he is fully informed as to the risks, benefits, and alternatives including nonsurgical alternatives. We also discussed the postoperative course including the rehab and physical therapy required. A physical examination was performed and documented. Patient understood the risks, agreed to proceed with surgery and no guarantees or assurances were given or implied. The limb was appropriately marked and initialed by me. The patient was then brought to the operating room and a spinal anesthesia was administered by the retail presentation specialist. The patient was then positioned supine on the operating table. All
[2020-06-26 14:38] LABS: Microscopic,Cath URINE MICROSCOPIC (MICROSCOPIC)
[2020-06-26 14:49] LABS: Appearance,Urine/Cath CLEAR (Clear); Bilirubin,Cath Negative (Negative); Blood, Urine/Cath Negative (Negative); Color,Urine/Cath STRAW (Yellow); Glucose,Urine/Cath (UA) Negative (Negative); Ketones,Urine/Cath Negative (Negative); Leukocyte Esterase,Cath Negative (Negative); Nitrate,Cath Negative (Negative); PH,Urine/Cath 5.5 (5.0-8.5); Protein,Urine/Cath Negative (Negative); Urobilinogen,Cath 0.2 EU/dl (0.2)
--- NOTE | 2020-06-26 14:49 | HMH.ORTHHP ---
*Admission Date: 06/26/20 *Reason for consult:: Status post total knee arthroplasty, left *History of present illness: Patient is 65 year old female admitted to hospital today after an uneventful left total knee arthroplasty. She has had chronic left knee pain, secondary to advanced degenerative arthritis, which has failed to respond satisfactorily to nonsurgical management. Following evaluation in the office, patient elected to proceed with a total knee arthroplasty. X-rays of her knee joint showed severe tricompartmental degenerative changes with nshx-bm-wmin appearance over the medial compartment. She rates her pain a 10 out of 10 at its worse. The pain increases with standing, weightbearing or walking for any length of of time, twisting and turning aggravates her pain. She says she can hardly walk few yards without pain. She states she rests as much as possible as that is what makes the knee most comfortable, as well as taking meloxicam, gabapentin, hydrocodone/acetaminophen, topical diclofenac. A total knee arthroplasty is indicated to reduce the risk of falls, improve her pain and mobility and quality of life. The surgical and nonsurgical alternatives were discussed in detail with the patient as well as the risks and benefits of the surgery. Please refer to my office note for full details. [facility] History I have reviewed the patient's past medical history: Yes Medical History: Reports:: Anxiety, Asthma, Diabetes Mellitus Type 2, Gastroesophageal Reflux Disease(GERD), Hyperlipidemia, Hypertension, Migraine Denies:: Cancer, Diabetes Mellitus Type 1, Internal Pacemaker, MRSA, Seizures *Have you ever received a pneumonia vaccine?: No *Have you received a flu vaccine this season?: No Other Medical History: Reports: Arthritis, Thyroid Disease. Denies: Blood Transfusion Reaction Anesthesia experience/problems:: none Laterality Cases: Bilateral: Tonsillectomy Other Surgeries: Yes: Hysterectomy-Total, Other. No: Pacemaker Amputation: No Fractures: No - *Social History Last grade of school completed: High school graduate Smoking Status: Never smoker Alcohol Intake: never Substance Use Type: denies use *Occupational Status:: other Housing: other Household Members: friend(s) *Travel in the last 8 weeks: None - Psychiatric History Pschychiatric History:: Reports:: Anxiety Family Hx:: Cancer, Diabetes, Heart Attack, Hypertension, Thyroid Disorder, Hyperlipidemia Review of Systems - Review of Systems Review of systems:: pertinent systems reviewed and negative unless documented below - Constitutional Denies chills, Denies fever(s) - Eyes Denies change in vision - ENT Denies abnormal hearing - *Cardiovascular Denies chest pain, Denies shortness of breath - *Respiratory Denies chest congestion, Denies shortness of breath - *Gastrointestinal Denies abdominal pain - *Musculoskeletal Reports abnormal walking, Reports joint pain, Reports deformity, Reports joint swelling - Integumentary/Breasts Denies non-healing lesions - *Neurologic Reports abnormal walking, Denies tingling/numbness/burning sensations, Denies seizure-like activity - Endocrine Denies cold intolerance, Denies heat intolerance - Hematologic/Lymphatic Denies easy bleeding, Denies easy bruising Meds Home Medications Medication Instructions Recorded Confirmed Type cholecalciferol (vitamin D3) 10 400 unit PO DAILY 10/09/18 06/26/20 History mcg (400 unit) capsule Ergocalciferol (Vitamin D2) 50,000 unit PO QWEEK 06/02/19 06/26/20 History [Drisdol] Ferrous Sulfate 325 mg PO DAILY 06/02/19 06/26/20 History Metformin HCl [Metformin HCl ER] 750 mg PO QAM 06/02/19 06/26/20 History atorvastatin 20 mg tablet 20 mg PO DAILY #90 tab 06/16/19 06/26/20 Rx hydroxyzine pamoate 25 mg capsule 25 mg PO TID PRN #60 cap 12/17/19 06/26/20 Rx atenolol 25 mg tablet 25 mg PO DAILY tab 12/27/19 06/26/20 History albuterol sulfate 90 mcg/actuation 2 inh INHALATION Q6H #1 eac
--- NOTE | 2020-06-26 15:00 | PC.NURSE ---
NOTIFIED DR. HOPKINS OFFICE OF CONSULT.
--- NOTE | 2020-06-26 15:13 | PC.NURSE ---
DR. SANDHU AT BEDSIDE. REARRANGED PATIENTS POLAR PACK AND KNEE BRACE. PT TOLERATED OKAY. CRYING STATING SHE IS IN PAIN. WILL MEDICATE PER MAY.
[2020-06-26 15:39] LABS: Bacteria,Urine/Cath TRACE /lpf; Squamous Epithelial Ur./Cath Occasional #/hpf (0-5)
--- NOTE | 2020-06-26 17:00 | PC.NURSE ---
REASSESSMENT DONE AT THIS TIME. NO CHANGED NOTED. PATIENTS ANKLE REMAINS ELEVATED ON PILLOW. REPORTS PAIN 10/10 AT TIMES. PT REPORTS LEGS, FEET ITCHING. PULSES 2+ AND NO EDEMA NOTED. ICE PACK IN PLACE PER MD ORDER. MEDICATED PER MAR FOR PAIN. SCHMIDT IN PLACE AND SCUDS IN PLACE. IV INFUSING. NO NEEDS.
--- NOTE | 2020-06-26 18:05 | PC.NURSE ---
PT ROLLING AROUND IN BED. REPORTS TO NURSE TO SCRATCH HER FEET PLEASE. REPORTS BURNING PAIN IS AWFUL. NURSE REMOVED POLAR PACK TO GIVE PATIENT A BREAK FOR ONE HOUR. ALSO MEDICATED WITH PO PAIN MEDS. WILL CONTINUE TO MONITOR SITUATION. PT IS PALE IN FACE, BUT VITALS WNL.
--- NOTE | 2020-06-26 21:07 | PC.NURSE ---
dr. mathew notified of pt's increased b/p. orders for additional dose of lisinopril 10mg po x 1 now. r/v
[2020-06-27] VITALS (8 sets, daily range): BP systolic 128–190; BP diastolic 74–85; PULSE 65–88; RESP 14–20; TEMP 36.2–37.2; O2SAT 94–96
--- NOTE | 2020-06-27 00:20 | PC.NURSE ---
MESSAGE LEFT FOR DR. HPOKINS R/T CONTINUED ELEVATED BLOOD PRESSURE. 190/85 MANUALLY PER THIS RN AFTER ADDITIONAL DOSE OF LISINOPRIL. PT MEDICATED FOR PAIN WELL, WILL CONTINUE TO MONITOR.
--- NOTE | 2020-06-27 00:45 | PC.NURSE ---
ORDERS RECEIVED FROM DR. HOPKINS, CLONIDINE 0.1MG PO X 1 DOSE NOW. R/V
--- NOTE | 2020-06-27 04:30 | PC.NURSE ---
NO ACUTE CHANGES IN REASSESSMENT. PT A&O X 4. VSS, BLOOD PRESSURE HAS REMAINED ELEVATED THIS SHIFT, MD AWARE. MEDICATION ADJUSTMENTS MADE. AFEBRILE. PAIN BETTER CONTROLLED OF THIS TIME. PT DROWSY UPON REASSESSMENT, O2 SAT 89%, O2 APPLIED AT 2L/NC, SAT 95%. PT USING INCENTIVE SPIROMETER, FAIR. IV PATENT, LUNGS CTAB, ABD SOFT, NON TENDER WITH BOWEL SOUNDS ACTIVE X 4 QUADS. SCHMIDT PATENT, CLEAR YELLOW URINE NOTED. LEFT LEG WITH KNEE IMMOBILIZER AND POLAR PACK IN PLACE. DRESSING C/D/I. PULSES PALPABLE 2+, PT ABLE TO WIGGLE TOES AND ROTATE ANKLE. NO EDEMA NOTED. SCUD TO RIGHT LEG. NO NEEDS AT THIS TIME, WILL CONTINUE TO MONITOR. CALL LIGHT WITHIN REACH.
--- NOTE | 2020-06-27 06:55 | HMH.ANESII ---
[facility] Anesthesia Record Part II Discharge Time: 13:40 Destination: Second Floor PACU nurse assessment reviewed?: Yes Patient Condition:: Good Anesthesia Complications:: None Swallowing reflex intact?: Yes Cyanosis?: No Blood Pressure: 128/74 Pulse Rate: 65 Temperature: 97.2 F Mental Status: Alert & Oriented Pain level:: 0 Nausea and/or vomitting:: None Intake, IV Amount: 450
[2020-06-27 07:07] LABS: Chloride 102 mmol/L (98-107); Potassium 4.2 mmoL/L (3.5-5.1); Sodium 134 mmol/L (136-145)
[2020-06-27 07:09] LABS: Basophils % 0.2 % (0.1-2.0); Eosinophils % 0.2 % (0.1-12.0); Lymphocytes # 1.7 K/mm3 (0.7-4.5); Lymphocytes % 10.9 % (10-50); Mean Corpuscular HGB Conc 33.1 g/dL (31.8-35.4); Mean Corpuscular Hemoglobin 30.5 pg (27.0-31.2); Mean Corpuscular Volume 92.1 fl (81-99); Mean Platelet Volume 9.5 fl (7.4-10.4); Monocytes % 6.1 % (1.7-9.3); Neutrophils # 13.1 K/mm3 (1.8-7.8); Neutrophils % 82.5 % (37.0-80.0); Platelet Count 295 K/mm3 (142-424); White Blood Count 15.8 K/mm3 (4.8-10.8)
[2020-06-27 07:10] LABS: Blood Urea Nitrogen 14 mg/dl (7-17); Creatinine Clearance Estimated 78 mL/min (50-200); Estimated Glomerular Filt Rate 84 ml/min (>60); GFR (African American) 102 ML/MIN (>60); Hemoglobin 11.3 g/dL (12.2-16.2); MANUAL DIFFERENTIAL MANUAL DIFFERENTIAL (MANUAL DIFF)
[2020-06-27 07:11] LABS: Anion Gap 11.2 mEq/L (5-15); Calcium 8.4 mg/dl (8.4-10.2); Carbon Dioxide 25 mmol/L (22.0-30.0); Glucose 177 mg/dl (74-100)
--- NOTE | 2020-06-27 08:06 | HMH.CONS ---
*Admission Date: 06/26/20 *Reason for consult:: Medical Referral *History of present illness: Patient is 65 year old female admitted to hospital today after an uneventful left total knee arthroplasty. She has had chronic left knee pain, secondary to advanced degenerative arthritis, which has failed to respond satisfactorily to nonsurgical management. Following evaluation in the office, patient elected to proceed with a total knee arthroplasty. X-rays of her knee joint showed severe tricompartmental degenerative changes with bnrd-si-lhqy appearance over the medial compartment. She rates her pain a 10 out of 10 at its worse. The pain increases with standing, weightbearing or walking for any length of of time, twisting and turning aggravates her pain. She says she can hardly walk few yards without pain. She states she rests as much as possible as that is what makes the knee most comfortable, as well as taking meloxicam, gabapentin, hydrocodone/acetaminophen, topical diclofenac. A total knee arthroplasty is indicated to reduce the risk of falls, improve her pain and mobility and quality of life. The surgical and nonsurgical alternatives were discussed in detail with the patient as well as the risks and benefits of the surgery. Please refer to my office note for full details (Per Dr. Woodard). 65-year-old female patient sitting up in bed respirations easy/even, she reports pain is at a tolerable level. Polar pack intact to left lower extremity and she is able to move feet and toes. She is well-known to our office as she is treated for hypertension, MELIA, hyperlipidemia, and diabetes. We will also follow-up with her once discharged as well as on a daily basis while inpatient. Thank you so much for including us in the care of this patient. She had a left THR performed yesterday without complications [facility] History I have reviewed the patient's past medical history: Yes Medical History: Reports:: Anxiety, Asthma, Diabetes Mellitus Type 2, Gastroesophageal Reflux Disease(GERD), Hyperlipidemia, Hypertension, Migraine Denies:: Cancer, Diabetes Mellitus Type 1, Internal Pacemaker, MRSA, Seizures *Have you ever received a pneumonia vaccine?: No *Have you received a flu vaccine this season?: No Other Medical History: Reports: Arthritis, Thyroid Disease. Denies: Blood Transfusion Reaction Anesthesia experience/problems:: none Laterality Cases: Bilateral: Tonsillectomy Other Surgeries: Yes: Hysterectomy-Total, Other. No: Pacemaker Amputation: No Fractures: No - *Social History Last grade of school completed: High school graduate Smoking Status: Never smoker Alcohol Intake: never Substance Use Type: denies use *Occupational Status:: other Housing: other Household Members: friend(s) *Travel in the last 8 weeks: None - Psychiatric History Pschychiatric History:: Reports:: Anxiety Family Hx:: Cancer, Diabetes, Heart Attack, Hypertension, Thyroid Disorder, Hyperlipidemia Review of Systems - Review of Systems Review of systems:: pertinent systems reviewed and negative unless documented below - Constitutional Denies anorexia, Denies fever(s) - Eyes Denies blind spots, Denies change in vision - ENT Denies abnormal hearing, Denies ear pain - *Cardiovascular Denies chest pain, Denies shortness of breath - *Respiratory Denies change in phlegm color, Denies chest congestion, Denies shortness of breath - *Gastrointestinal Denies abdominal pain, Denies change in bowel habits - *Musculoskeletal Reports abnormal walking, Reports joint pain, Reports joint swelling, Denies back pain - Integumentary/Breasts Denies acne, Denies yellowing of the skin - *Neurologic Reports abnormal walking, Denies abnormal hearing, Denies tingling/numbness/burning sensations, Denies seizure-like activity - Psychiatric Denies behavioral changes, Denies confusion - Endocrine Denies cold intolerance, Denies heat intolerance - Hematologic/Lymphatic Denies easy b
[2020-06-27 08:53] LABS: Lymphocytes % 11 % (10-50); Monocytes % 2 % (2-9); Neutrophils % 87 % (42-76); RBC Morphology Normal; Total Cells Counted 100
[2020-06-27 08:54] LABS: Platelet Estimate Normal
--- NOTE | 2020-06-27 09:48 | HMH.OTEV ---
OT Inpatient Evaluation Rehab OT IP Evaluation Start: 06/26/20 14:19 Freq: ONCE Status: Complete Protocol: Document 06/27/20 09:43 ANGELBEE BRANCH (Rec: 06/27/20 09:48 [facility] [id number]) Rehab OT IP Assessment Subjective History Pt oriented x 4 on arrival. Pt agreeable to engage in therapy evaluation. Pt had a L TKA on 06/26/20. Pt has a past medical history of Anxiety, Asthma, DM type 2, GERD, Hyperlipidemia, HTN, and migraines. Pt reports prior to surgery she lived at home with roomates. She claims she was independent with all ADLs and IADLs. She reports she did not use a walker during ambulation, but did hold onto things while walking. Subjective I know this is going to hurt. Objective Patient Orientation Person,Place,Birthday,Year Upper Extremity Gross ROM WFL Bed Mobility bed mobility-scooting,bed mobility - supine/sit,bed mobility - rolling Assist Level Minimal x 1 (25% assist) Transfer Training Sit/Stand Transfer Assist Level Moderate x 1 (50% assist) Rehab OT IP prob,goals,plan Problems Date of Evaluation: 06/27/20 OT IP Problems Bed Mobility,Transfers,Gait, Balance,Self care,Safety Rehab Potential Rehab Potential Good Equipment Needs Assistive Devices Rolling / Wheeled Walker Plan OT intervention Plan Bed Mobility,Transfers,Gait, Balance,Self care,Safety, Therapeutic Exercise OT Plan Frequency BID Duration LOS Discharge Goals Bed Mobility Ability Standby Assistance Sit to Stand Chair Transfer Ability Minimal x 1 (25% assist) Chair Transfer Ability Minimal x 1 (25% assist) Chair Transfer Technique Sit to/from Ambulatory Chair Transfer Assistive Devices Rolling Walker Self care skills fully toilet trained,uses utensils to feed self Feeding Ability Independent Lower Body Dressing Ability Assistance X1 Upper Body Dressing Ability Standby Assistance Bathing Ability Assistance x1 Performing Toilet Hygiene Ability Standby Assistance Overall Commode/Toilet Transfer Ability Assistance x1
--- NOTE | 2020-06-27 10:12 | SW/DCPLANNER ---
Addendum entered by [facility] 06/28/20 11:46: Accepting MD at [facility]: Tony Thayer in SRU (Skilled) Unit. Phone number for report to SRU: [phone]. Fax number: [phone]. I have relayed this information to OB nursing staff. Addendum entered by [facility] 06/28/20 11:40: Zayra has stated that this patient has been accepted and can admit today. Dr Woodard and Dr Charlton concur with this plan of discharging today. Dr Woodard has stated that he will see patient and discharge today. Patient has stated that she will not have any transportation for today (multiple attempts to contact family members): nursing staff will attempt to arrange ambulance transportation. Addendum entered by [facility] 06/28/20 09:38: Zayra with [facility] has stated currently waiting to hear back from patients insurance. Addendum entered by [facility] 06/27/20 14:07: Zayra has stated that [facility] [employer] has approved and precert has been started with patients insurance. I will continue to follow up with Zayra from [facility]. Addendum entered by [facility] 06/27/20 13:07: Zayra with [facility] is currently reviewing patient information. Original Note: I have received referral for this patient regarding: discharge planning. Patient stated that she resides at home with friends but anticipates going to [facility] at time of discharge. I did speak with patient regarding [facility] and expectations. Once PT evaluation is completed I will fax patient information to Zayra at [facility]. Discharge date is unknown at this time.
--- NOTE | 2020-06-27 10:59 | PC.NURSE ---
1045 Physical therapy at bedside discussing ambulation with pt. F/C removed prior to activity, tolerated well by pt. Pt able to get up with physical therapy and transfer to chair. Pt reports increasing discomfort with activity but did tolerate well. Soft drink provided to pt, call light within reach.
--- NOTE | 2020-06-27 11:11 | HMH.PHAINT ---
MEDICATION RECONCILIATION COMPLETED USING EXTERNAL FILL HISTORY AND HOME PHARMACY
--- NOTE | 2020-06-27 11:23 | HMH.PTEV ---
Physical Therapy Evaluation Rehab PT IP Evaluation Start: 06/26/20 14:19 Freq: ONCE Status: Active Protocol: Document 06/27/20 11:00 PHORNE (Rec: 06/27/20 11:23 PHORNE [id number]) Subjective/History History History [address] [facility] for L TKA due to OA. She reports she lives with roommates with 6-7 steps to enter the home and was using an AD for ambulation prior to adm. She states that she wants to go to rehab after D/C from hospital. Subjective Subjective Pt reports pain in the L LE, worse with WBing. Continues t ohave some numbness in the L foot this am. Rehab PT IP Eval Objective Appearance Patient Behavior Appropriate Patient Orientation Person,Place,Time Difficulty following instructions none Speech Pattern Clear Ambulation Patient Able to Ambulate Yes Ambulation Observation IP General Gait Pattern Observation Antalgic Gait,Decrease Weight Bear (L),Decrease Stride Lngth (R),Decrease Stride Lngth (L) Ambulation Distance (feet) 5 Ambulation Assistive Device Standard Walker Ambulation Ability Minimal x 1 (25% assist) Balance Ability to Arise Able, uses arms to help Sitting Balance Steady, safe Standing Balance Steady, wide stance Dynamic Sitting Balance Ability Good Dynamic Standing Balance Ability Fair Transfers Bed Transfer Ability Minimal x 1 (25% assist) Chair Transfer Ability Minimal x 1 (25% assist) Sit to Stand Bed Transfer Ability Minimal x 1 (25% assist) Sit to Stand Chair Transfer Ability Minimal x 1 (25% assist) Rehab PT IP prob,goals,plan Problems Date of Evaluation: 06/27/20 PT IP Problems Bed Mobility,Transfers,Gait Rehab Potential Rehab Potential Good Equipment Needs Assistive Devices Rolling / Wheeled Walker Plan PT Intervention Plan Bed Mobility,Transfers,Gait, Self care,Therapeutic Exercise PT Plan Frequency BID Duration LOS Discharge Goals Bed Transfer Ability Contact Guard/Hand Hold Sit to Stand Chair Transfer Ability Contact Guard/Hand Hold Ambulation Assistive Device Standard Walker Ambulation Distance (feet) 30 Discharge Plan PT Discharge Plan Pt is most appropriate for rehab placement once medically stable. G -code Required
--- NOTE | 2020-06-27 13:07 | HMH.ORTHPN ---
Subjective Date: 06/27/20 Time: 12:00 Principal diagnosis: S/p total knee arthroplasty, left Interval history: Patient is status post left total knee arthroplasty, postoperative day [1]. Patient is [sitting out in the chair]. She says she is doing well and had a fairly good night's rest. She is having some pain in the knee as to be expected; she says the pain is well controlled with as needed pain medication. No history of any nausea or vomiting. No history of any cough, chest pain, shortness of breath or palpitations. Patient says she is eating and drinking well. She started mobilization with physical therapy this morning and says it went well. PN: Obj Ex Vital signs: Temp Pulse Resp BP Pulse Ox 98.5 F 75 18 166/76 H 96 06/27/20 12:00 06/27/20 12:00 06/27/20 12:00 06/27/20 12:00 06/27/20 12:00 Narrative: Laboratory Results - last 24 hr 06/26/20 10:00: Urine Color Straw, Urine Appearance Clear, Urine pH 5.5, Ur Specific [place] 1.020, Urine Protein Negative, Urine Glucose (UA) Negative, Urine Ketones Negative, Urine Blood Negative, Urine Nitrate Negative, Urine Bilirubin Negative, Urine Urobilinogen 0.2, Ur Leukocyte Esterase Negative, Urine RBC 3-5, Urine WBC 3-5, Ur Squamous Epith Cells Occasional, Urine Bacteria Trace 06/26/20 13:28: POC Glucose 112 H 06/27/20 06:26: WBC 15.8 H D, RBC 3.70 L, Hgb 11.3 L D, Hct 34.0 L, MCV 92.1, MCH 30.5, MCHC 33.1, RDW 14.0, Plt Count 295, MPV 9.5, Neut % (Auto) 82.5 H, Lymph % (Auto) 10.9, [place] % (Auto) 6.1, Eos % (Auto) 0.2, Baso % (Auto) 0.2, Neut # (Auto) 13.1 H, Lymph # (Auto) 1.7, [place] # (Auto) 1.0, Eos # (Auto) 0.0, Baso # (Auto) 0.0, Total Counted 100, Neutrophils % (Manual) 87 H, Lymphocytes % (Manual) 11, Monocytes % (Manual) 2, Platelet Estimate Normal, RBC Morphology Normal 06/27/20 06:26: Sodium 134 L, Potassium 4.2, Chloride 102, Carbon Dioxide 25, Anion Gap 11.2, BUN 14, Creatinine 0.70, Estimated Creat Clear 78, Estimated GFR 84, Est GFR ( Amer) 102, Glucose 177 H, Calcium 8.4 Intake & Output 06/25/20 06/26/20 06/27/20 06/28/20 11:59 11:59 11:59 11:59 Intake Total 5260 / 5260 Output Total 2875 / 2875 Balance 2385 / 2385 Exam: General appearance: alert, active, awake Cardiovascular: regular rate & rhythm, normal peripheral pulses Respiratory: No respiratory distress noted, speaks in full sentences ABD: soft and non tender Neuro: alert, awake, oriented x 3 On examination of the lower extremities the limb lengths are equal. On examination of the left knee the dressings are clean, dry and intact. Leg compartments are soft. Distal pulses are 2+. Capillary refill is brisk. No stretch pain or signs of compartment syndrome noted. She is actively moving the ankle, foot and the toes. Sensation is intact to light touch throughout. - Urinary Catheter Management Olivares Cath placed during this visit: no Progress Note: A&P (1) Primary osteoarthritis of left knee Status: Acute (2) S/P total knee arthroplasty Status: Acute (3) HLD (hyperlipidemia) Status: Chronic (4) Anxiety Status: Acute (5) MELIA (obstructive sleep apnea) Status: Chronic (6) Obesity (BMI 30-39.9) Status: Chronic (7) HTN (hypertension) Status: Chronic (8) Diabetes 1.5, managed as type 2 Status: Chronic Assessment and Plan for All Diagnoses:: I have reviewed the clinical findings and progress with the patient. She is doing fairly well without any postop problems. Continue standard post TKA physical therapy and mobilization weightbearing as tolerated. Avoid placing pillow behind the knee; use knee immobilizer when weightbearing and walking until she regains full quadriceps control and is able to actively straight leg raise. Continue DVT prophylaxis and as needed pain medication. Discontinue IV fluids and discontinue the urinary catheter. Care management looking into discharge planning. Patient is keen to go to a [place] [facility] facility for
--- NOTE | 2020-06-27 17:06 | PC.NURSE ---
1630 RN reassessment completed at this time. Pt remains A & O X4, has rested in intervals throughout the shift. Pt has been up with physical therapy throughout the day to ambulate to chair and then back to bed, tolerated activity well. Pt has been medicated per EMAR with PRN medication for c/o pain in left leg with good relief. Linens changed this shift, pt previously refusing a bath but is now agreeable. Polar pack applied to left leg throughout the day per MD order and immobilizer in place. IPCS to R leg while pt is lying in bed. Pt has not voided since F/C was removed earlier in the shift but is agreeable to ambulate to [facility] when pain medicine kicks in. Pt reports passing flatus, no BM. Lung sounds CTA, no s/s respiratory distress. Abd soft and nontender with BS active in all quads, tolerating a diabetic diet well. Bed locked and in lowest position with call light within reach. Will continue to monitor.
--- NOTE | 2020-06-27 17:54 | PC.NURSE ---
1750 Staff assisted pt with bed bath and also changed bed linens. Pt ambulated with walker and stand by assist x1 to [facility] to void and then to chair. Pt tolerated activity well and voided without difficulty.
[2020-06-28 04:00] VITALS: BP 160/88; PULSE 88; RESP 18; TEMP 37.3; O2SAT 96
--- NOTE | 2020-06-28 05:24 | INFXCTL.NOTE ---
Pt has slept in intervals this shift, A&O x4, BLT lungs CTA, bowel sounds present in all 4 quadrants, IV S/L, Pt medicated for pain per MAR, pt up to the bedside commode with x2 assistance, Surgical dressing in place with mann wrap, knee immobilizer, and polar pack, Pt denies headache, SOA, N/V
[2020-06-28 08:00] VITALS: BP 175/80; PULSE 106; RESP 18; TEMP 36.9; O2SAT 95
--- NOTE | 2020-06-28 09:13 | HMH.CONFU ---
Internal Medicine - PN: Subj *Date: 06/28/20 *Time: 09:13 Interval history: 65-year-old female patient lying in bed resting quietly, she reports pain is at a tolerable level. Polar pack intact to left lower extremity. Blood pressure has been elevated we increased medication yesterday, this a.m. still elevated we will add Norvasc 5 mg at night and first dose this morning. She denies any shortness of breath or chest pain during the night. Exam Vital signs and Labs for Last 24 Hours: Temp Pulse Resp BP Pulse Ox 98.5 F 106 H 18 175/80 H 95 06/28/20 08:00 06/28/20 08:00 06/28/20 08:00 06/28/20 08:00 06/28/20 08:00 I & O for Last 24 hours: Intake & Output 06/25/20 06/26/20 06/27/20 06/28/20 23:59 23:59 23:59 23:59 Intake Total 3740 / 3740 1520 / 1520 Output Total 1999 875 / 875 Balance 1740 / 1740 645 / 645 - Constitutional no acute distress - *Routine HEENT Exam Head: Present: normocephalic Eye: Present: EOMI ENT: Present: mucous membranes moist - *Routine Neck Exam Present: supple, trachea midline. Absent: tracheal deviation - *Routine Respiratory Exam Present: CTA bilaterally. Absent: accessory muscle use - *Routine Cardiovascular Exam Present: RRR, murmur - *Routine Abdominal Exam Present: soft, normoactive bowel sounds. Absent: tenderness, firm - *Routine Extremities Exam Present: pulses intact. Absent: cyanosis, clubbing, full ROM, calf tenderness - *Routine Skin Exam Present: dry, warm, wounds. Absent: cyanosis - *Routine Neurological Exam Present: alert, oriented X3. Absent: motor deficit, altered mental status - Routine Psychiatric Exam Present: normal affect, normal thought process. Absent: auditory hallucinations, visual hallucinations Assessment and Plan (1) Primary osteoarthritis of left knee Status: Acute Category: Medical Code(s): M17.12 - Unilateral primary osteoarthritis, left knee (2) S/P total knee arthroplasty Status: Acute Category: Surgical Code(s): Z96.659 - Presence of unspecified artificial knee joint (3) HLD (hyperlipidemia) Status: Chronic Qualifiers: Hyperlipidemia type: mixed hyperlipidemia Qualified Code(s): E78.2 - Mixed hyperlipidemia Category: Medical Code(s): E78.5 - Hyperlipidemia, unspecified (4) Anxiety Status: Acute Category: Medical Code(s): F41.9 - Anxiety disorder, unspecified (5) MELIA (obstructive sleep apnea) Status: Chronic Category: Medical Code(s): G47.33 - Obstructive sleep apnea (adult) (pediatric) (6) Obesity (BMI 30-39.9) Status: Chronic Category: Medical Code(s): E66.9 - Obesity, unspecified (7) HTN (hypertension) Status: Chronic Qualifiers: Hypertension type: essential hypertension Qualified Code(s): I10 - Essential (primary) hypertension Category: Medical Code(s): I10 - Essential (primary) hypertension (8) Diabetes 1.5, managed as type 2 Status: Chronic Category: Medical Code(s): E13.9 - Other specified diabetes mellitus without complications - Assessment and plan all Dx Assessment and Plan for all problems:: Rounded with Dr. Charlton, all orders per Dr. Charlton: 1. Start Norvasc 5 mg at bedtime, first dose now
[2020-06-28 11:24] LABS: Basophils # 0.1 K/mm3 (0-0.2); Basophils % 0.3 % (0.1-2.0); Eosinophils # 0.1 K/mm3 (0.0-0.4); Eosinophils % 0.8 % (0.1-12.0); Hematocrit 33.8 % (37.0-47.0); Hemoglobin 11.2 g/dL (12.2-16.2); Lymphocytes # 2.3 K/mm3 (0.7-4.5); Lymphocytes % 14.5 % (10-50); Mean Corpuscular HGB Conc 33.1 g/dL (31.8-35.4); Mean Corpuscular Hemoglobin 30.5 pg (27.0-31.2); Mean Corpuscular Volume 92.1 fl (81-99); Mean Platelet Volume 9.2 fl (7.4-10.4); Neutrophils # 12.5 K/mm3 (1.8-7.8); Neutrophils % 78.4 % (37.0-80.0); Platelet Count 309 K/mm3 (142-424); Red Blood Count 3.67 M/mm3 (4.20-5.40); Red Cell Distribution Width 14.3 % (11.5-17.5)
[2020-06-28 11:26] LABS: MANUAL DIFFERENTIAL MANUAL DIFFERENTIAL (MANUAL DIFF)
[2020-06-28 11:30] LABS: Anion Gap 11.9 mEq/L (5-15); Blood Urea Nitrogen 14 mg/dl (7-17); Calcium 8.8 mg/dl (8.4-10.2); Carbon Dioxide 26 mmol/L (22.0-30.0); Chloride 102 mmol/L (98-107); Creatinine Clearance Estimated 78 mL/min (50-200); Estimated Glomerular Filt Rate 72 ml/min (>60); GFR (African American) 87 ML/MIN (>60); Glucose 139 mg/dl (74-100); Potassium 3.9 mmoL/L (3.5-5.1); Sodium 136 mmol/L (136-145)
[2020-06-28 11:51] LABS: Eosinophils % 2 % (0-3); Lymphocytes % 15 % (10-50); Monocytes % 7 % (2-9); Neutrophils % 76 % (42-76); Total Cells Counted 100
[2020-06-28 11:52] LABS: Platelet Estimate Normal; RBC Morphology Normal
[2020-06-28 12:49] VITALS: BP 181/93; PULSE 91; RESP 20; TEMP 36.8; O2SAT 95
--- NOTE | 2020-06-28 12:58 | HMH.DCSUM ---
General - General Admission date:: 06/26/20 Discharge date: 06/28/20 HPI HPI: Patient is a 65-year-old female with advanced degenerative joint disease of the left knee who is admitted to the hospital electively following an uncomplicated primary total knee arthroplasty on 06/26/2020. Prior to surgery patient had long-standing pain, stiffness and disability secondary to advanced degenerative arthritis in her left knee. She has not responded well to conservative management including NSAID, Tylenol, and intra-articular injections in the past. She is using assistive walking devices. Total knee arthroplasty is indicated to reduce the risk of falls, improve her pain and mobility and quality of life. Her walking distance and ADLs are adversely affected; she also has history of night pain and sleep disturbance. A total knee arthroplasty is indicated to reduce the risk of falls, improve the pain, mobility and quality of life. The surgical and nonsurgical alternatives were discussed in detail with the patient as well as the risks and benefits of the surgery. She has history of anxiety, hypertension, hyperlipidemia, coronary artery disease, GERD, diabetes mellitus 1.5, COPD, asthma and bronchitis. She is an ex-smoker and stopped smoking many years ago. Refer to my office note for full details. Hospital Course Hospital Course: Patient underwent an uncomplicated straightforward primary left total knee arthroplasty on 06/26/2020. Following surgery patient was admitted to hospital and progressed well without any complications. The postoperative check x-ray was satisfactory with good alignment and fixation of the components. Patient progressed well with physical therapy and was able to mobilize using a walker. After 2 days of hospital stay for observation, patient was discharged to a [facility] facility for rehab on 06/28/2020. At the time of discharge she has not yet regained good quadriceps control and is not able to actively straight leg raise. Patient has some knee pain as to be expected and her pain is well controlled with as needed oral pain medication. The incision is healthy and healing well. No signs of any erythema, induration or discharge noted. Patient was started on Xarelto 10 mg daily for DVT prophylaxis after surgery. The neurovascular status in both lower extremities is intact. Pedal pulses 1+ bilaterally and fully sensate distally. No clinical evidence of DVT noted. Patient was cleared for discharge by physical therapy. On the day of discharge, the patient has been stable. Patient is afebrile at the time of discharge. She is being discharged to a [facility] facility for rehab. During her hospital stay, patient was seen by Dr. Charlton for management of medical problems. Her blood pressure was not very well controlled therefore amlodipine was added to her other medication. Patient is being discharged on this. Condition at discharge: improved and stable. Treatments and Procedures: Total knee arthroplasty, left knee; date of surgery 06/26/2020. Objective Vital signs: Temp Pulse Resp BP Pulse Ox 98.2 F 91 H 20 181/93 H 95 06/28/20 12:49 06/28/20 12:49 06/28/20 12:49 06/28/20 12:49 06/28/20 12:49 no acute distress, obese - *Routine HEENT Exam Head: Present: normocephalic Eye: Present: EOMI, PERRL ENT: Present: mucous membranes moist - *Routine Neck Exam Present: supple - *Routine Respiratory Exam Present: CTA bilaterally - *Routine Cardiovascular Exam Present: RRR - *Routine Abdominal Exam Present: soft, normoactive bowel sounds. Absent: tenderness - *Routine Extremities Exam Absent: cyanosis, clubbing Comments: On examination of the lower extremities the limb lengths are equal. On examination of the left knee the incision is clean, dry and healthy. No signs of infection or other complications are noted. There is minimal swelling and ecchymosis around the knee as to be expected at th
[2020-06-28 13:05] VITALS: BP 166/82
--- NOTE | 2020-06-28 13:05 | PC.NURSE ---
1304 Discharge order noted. [facility] called for transport to [facility].
--- NOTE | 2020-06-28 14:09 | PC.NURSE ---
1403 Detailed report given to Murali at [facility] using SBAR.
--- NOTE | 2020-06-28 14:43 | PC.NURSE ---
1340 [facility] personnel at bedside for transport to [facility] 1344 Pt leaving department at this time with [facility].
== END 2020-06-28 13:44 ==
LOC: 2ND 07:12 → OB 13:51
PROVIDERS: Admitting Provider Orthopaedic Surgery; PCP Nurse Practitioner Family; Visit Provider Orthopaedic Surgery
PROC: (CPT 27447; principal; 2020-06-26 08:45)
DX: M17.12 Unilateral primary osteoarthritis, left knee (principal); E11.9 Type 2 diabetes mellitus without complications; I10 Essential (primary) hypertension; E78.5 Hyperlipidemia, unspecified; E03.9 Hypothyroidism, unspecified; Z79.84 Long term (current) use of oral hypoglycemic drugs; F41.9 Anxiety disorder, unspecified; J45.909 Unspecified asthma, uncomplicated
CPT/HCPCS: 27447; 36415; 73560; 80048; 81001; 82962; 85007; 85025; 86850; 93005; 94640; 94761; 96374; 97110; 97116; 97162; 97166; 97530; C1776; G0283; G0378; J2405; J3370

== ENCOUNTER → 2020-08-09 15:39 | Outpatient (CLI) | payer MEDICARE, MEDICAID, SELFPAY ==
--- NOTE | 2020-08-09 15:46 | XR_ITS ---
PROCEDURE: XR KNEE LT 2V CLINICAL INDICATION: sp LT tka, DOS 05/26/20 Follow-up knee replacement COMPARISON: CR XR KNEE LT 3V from 03/16/2019 CR XR KNEE RT 3V from 03/16/2019 CR XR KNEE LT 4V from 06/14/2020 CR XR KNEE LT 2V from 06/26/2020 FINDINGS: Status post total knee replacement. There is good alignment of the prosthesis. Small linear density is present in the suprapatellar region and may be postsurgical. IMPRESSION: Good alignment status post total knee replacement Dictated by: Ajay Parmar MD 08/09/2020 17:29 Ajay Parmar MD in [place] 08/09/2020 17:29
== END ==
PROVIDERS: PCP Nurse Practitioner Family; Visit Provider Orthopaedic Surgery
DX: Z96.659 Presence of unspecified artificial knee joint (principal); M25.562 Pain in left knee
CPT/HCPCS: 73560

== ENCOUNTER → 2021-01-10 17:34 | Outpatient (CLI) | payer MEDICARE, MEDICAID, SELFPAY ==
[2021-01-10 19:33] LABS: Benzodiazepines Screen,Urine Negative ng/ml (<200)
[2021-01-10 19:34] LABS: Amphetamine/Metha Screen,Urine Negative ng/ml (<1000)
[2021-01-10 19:35] LABS: Barbiturates Screen,Urine Negative ng/ml (<200); Cannabinoid Screen,Urine Negative ng/ml (<50)
[2021-01-10 19:36] LABS: Cocaine Screen,Urine Negative ng/ml (<300)
[2021-01-10 19:37] LABS: Methadone Screen,Urine Negative ng/ml (<300)
[2021-01-10 19:39] LABS: Opiate Screen,Urine Positive ng/ml (<300); Phencyclidine Screen,Urine Negative ng/ml (<25)
== END ==
PROVIDERS: Visit Provider Nurse Practitioner Family
DX: M25.512 Pain in left shoulder (principal)
CPT/HCPCS: 80305

== ENCOUNTER 2021-03-26 18:00 | Emergency (ER) | payer MEDICARE, MEDICAID, SELFPAY ==
[2021-03-26 18:00] VITALS: BP 163/89; PULSE 73; RESP 16; TEMP 37.2; O2SAT 96; BMI 34.9
--- NOTE | 2021-03-26 18:18 | XR_ITS ---
PROCEDURE INFORMATION: Exam: XR Chest Exam date and time: 03/26/2021 6:18 PM Age: 65 years old Clinical indication: Cough TECHNIQUE: Imaging protocol: XR of the chest. Views: 1 view. Total images: 1 COMPARISON: CR XR CHEST 2V 06/14/2020 3:17 PM FINDINGS: Lungs: Pulmonary vasculature grossly normal. Alveolar opacities in the medial right base/infrahilar region concerning for pneumonia versus atelectasis or edema. Question additional involvement in the peripheral left base. Granulomatous calcification in the peripheral left base unchanged. Pleural spaces: No pleural effusion. No pneumothorax. Heart/Mediastinum: Heart size normal. No tracheal/mediastinal shift. Vasculature: The aorta demonstrates mild ectasia/tortuosity and mild calcific atherosclerosis. Bones/joints: No acute osseous abnormalities are identified. Moderate osteoarthritic changes in the left glenohumeral joint again noted. IMPRESSION: Alveolar opacities in the right lung base and suspected in the peripheral left base, concerning for multifocal pneumonia.
--- NOTE | 2021-03-26 18:19 | HMH.EDGENADL ---
ED Disposition Clinical Impression: CAP (community acquired pneumonia) Qualifiers: Laterality: unspecified laterality Qualified Code(s): J18.9 - Pneumonia, unspecified organism Disposition: Home, Self-Care Condition on Discharge: Good Instructions: Pneumonia-Adult Additional Instructions: follow up pcp, return for worse Prescriptions: Azithromycin [Zithromax 500mg Tab] 500 mg PO DAILY #2 tab Transmission Status: Pending to [facility] Referrals: Provider,Referral, [Referring] - - Critical Care Critical Care Time: No Attestation: On 03/26/21, the high probability of a clinically significant, sudden or life threatening deterioration of the following system(s) required my full and direct attention, intervention and personal management. The time I documented below is in addition to time spent performing reported procedures but includes the following listed in this critical care notation. Medical Decision Making - Medical Records Medical records reviewed: Yes: I reviewed the patient's medical records. - Ajit Inquiry Pt receiving controlled substance: No Vital Signs: 03/26/21 18:00 Temperature 98.9 F Temperature Source Oral Pulse Rate [Right] 73 Respiratory Rate 16 Blood Pressure [Right Arm] 163/89 H Blood Pressure Mean [Right Arm] 113 Blood Pressure Source [Right Arm] Automatic Cuff Blood Pressure Position [Right Arm] Sitting 02 Sat by Pulse Oximetry 96 Oxygen Delivery Method Room Air - Lab Data Lab Results 03/26/21 18:38: WBC 13.4 H, RBC 4.50, Hgb 13.8, Hct 43.5, MCV 96.5, MCH 30.7, MCHC 31.8, RDW 13.6, Plt Count 362, MPV 9.2, Neut % (Auto) 64.1, Lymph % (Auto) 27.4, [place] % (Auto) 3.2, Eos % (Auto) 4.2, Baso % (Auto) 1.2, Neut # (Auto) 8.6 H, Lymph # (Auto) 3.7, [place] # (Auto) 0.4, Eos # (Auto) 0.6 H, Baso # (Auto) 0.2 03/26/21 18:38: Sodium 140, Potassium 4.0, Chloride 103, Carbon Dioxide 30, Anion Gap 11.0, BUN 19 H, Creatinine 1.00, Estimated Creat Clear 84, Estimated GFR 56 L, Est GFR ( Amer) 67, Glucose 163 H, Calcium 8.6, Total Bilirubin 0.3, AST 23, ALT 17, Alkaline Phosphatase 64, Troponin I < 0.01, Total Protein 6.5, Albumin 3.7, Globulin 2.8, Albumin/Globulin Ratio 1.3 03/26/21 18:38: Influenza Type A Ag Negative, Influenza Type B Ag Negative Result diagrams: 03/26/21 18:38 03/26/21 18:38 Orders (Tests/Meds): ORDERS Category Date Time Status Covid-19 Nasal PCR ([facility]) Routine Lab 03/26/21 18:00 Received Troponin I Q3H Lab 03/26/21 21:30 Ordered Troponin I Q3H Lab 03/27/21 00:30 Ordered ECG Request by /Nse Stat Y 03/26/21 18:18 Ordered Medical Decision Narrative: reeval, vss, appears wel, ok with plan to rx and f/u pcp General Adult HPI - General Chief complaint: Upper Respiratory Infection Stated complaint: fever,chills,aches Time Seen by Provider: 03/26/21 18:19 Mode of Arrival: EMS Source of Information: Patient, EMS Limitations: No Limitations Description of Symptoms (Recalled from ER Triage Doc. by RN): Pt c/o fever, aches, chills and non-productive cough for 1 week - History of Present Illness HPI narrative: fever, uri sumptoms, several days Radiation: non-radiation Severity: moderate Consistency: constant Relieving factors: none Exacerbating factors: none Associated symptoms: denies other symptoms - Related Data Previous Rx's Medication Instructions Recorded Fluticasone Propionate [Flovent 1 puffs IH BID puff 06/28/20 Hfa 110mcg Inhaler] Rivaroxaban [Xarelto 10mg tablet] 10 mg PO DAILY #14 tab 06/28/20 amlodipine 5 mg tablet 5 mg PO HS #90 tab 11/23/20 escitalopram oxalate 10 mg tablet 10 mg PO DAILY #90 tab 11/23/20 ferrous sulfate 325 mg (65 mg 325 mg PO DAILY #90 tab 11/23/20 iron) tablet hydroxyzine pamoate 25 mg capsule 25 mg PO TIDP PRN #60 cap 11/23/20 lisinopril 10 mg tablet 10 mg PO DAILY #90 tab 11/23/20 nystatin 100,000 unit/gram topical 1 applic TOPICAL QID #30 g 11/23/20 powder trazodone 150
[2021-03-26 18:51] LABS: Basophils # 0.2 K/mm3 (0-0.2); Basophils % 1.2 % (0.1-2.0); Eosinophils # 0.6 K/mm3 (0.0-0.4); Eosinophils % 4.2 % (0.1-12.0); Hematocrit 43.5 % (37.0-47.0); Hemoglobin 13.8 g/dL (12.2-16.2); Lymphocytes # 3.7 K/mm3 (0.7-4.5); Lymphocytes % 27.4 % (10-50); Mean Corpuscular HGB Conc 31.8 g/dL (31.8-35.4); Mean Corpuscular Hemoglobin 30.7 pg (27.0-31.2); Mean Corpuscular Volume 96.5 fl (81-99); Mean Platelet Volume 9.2 fl (7.4-10.4); Monocytes # 0.4 K/mm3 (0.1-1.0); Monocytes % 3.2 % (1.7-9.3); Neutrophils # 8.6 K/mm3 (1.8-7.8); Neutrophils % 64.1 % (37.0-80.0); Platelet Count 362 K/mm3 (142-424); Red Cell Distribution Width 13.6 % (11.5-17.5); White Blood Count 13.4 K/mm3 (4.8-10.8)
[2021-03-26 19:04] LABS: Chloride 103 mmol/L (98-107)
[2021-03-26 19:05] LABS: Sodium 140 mmol/L (136-145)
[2021-03-26 19:07] LABS: Alanine Aminotransferase 17 U/L (12-78); Aspartate Amino Transferase 23 U/L (14-36); Blood Urea Nitrogen 19 mg/dl (7-17); Creatinine Clearance Estimated 84 mL/min (50-200); Estimated Glomerular Filt Rate 56 ml/min (>60); GFR (African American) 67 ML/MIN (>60)
[2021-03-26 19:08] LABS: Albumin Level 3.7 g/dl (3.5-5.0); Albumin/Globulin Ratio 1.3 (1.1-1.8); Alkaline Phosphatase 64 U/L (38-126); Bilirubin,Total 0.3 mg/dl (0.2-1.3); Calcium 8.6 mg/dl (8.4-10.2); Carbon Dioxide 30 mmol/L (22.0-30.0); Globulin 2.8 g/dL (1.3-3.2); Glucose 163 mg/dl (74-100); Total Protein,Serum 6.5 g/dl (6.3-8.2)
--- NOTE | 2021-03-26 19:10 | ECG_ITS ---
APPROVED REPORT Exam: Resting ECG HR:77 bpm ECG Measurements Heart Rate 77 AXES WY 128 P -21 QRSd 90 QRS -31 QT 388 T 11 QTc 420 Conclusion SINUS RHYTHM LEFT AXIS DEVIATION [QRS AXIS < -30] LOW QRS VOLTAGE IN PRECORDIAL LEADS [QRS DEFLECTION < 1.0 mV IN CHEST LEADS] PATTERN CONSISTENT WITH PULMONARY DISEASE ABNORMAL ECG UNCONFIRMED REPORT Electronically signed by : Bennett Thomas MD 03/27/2021 12:12:01
[2021-03-26 19:23] LABS: Troponin I < 0.01 ng/ml (0.00-0.034)
[2021-03-26 19:30] VITALS: BP 168/87; PULSE 78; O2SAT 94
[2021-03-26 19:43] VITALS: BP 167/88; PULSE 77; RESP 18; TEMP 36.9; O2SAT 94
== END 2021-03-26 19:51 | disposition home or self-care (01) ==
PROVIDERS: Emergency Provider Emergency Medicine; PCP Nurse Practitioner Family
DX: U07.1 COVID-19 (principal); J12.82 Pneumonia due to coronavirus disease 2019; K21.9 Gastro-esophageal reflux disease without esophagitis; E78.5 Hyperlipidemia, unspecified; I10 Essential (primary) hypertension; Z87.891 Personal history of nicotine dependence
CPT/HCPCS: 71045; 80053; 84484; 85025; 87275; 87276; 93005; 99283; C9803; U0003; U0005

== ENCOUNTER 2021-04-02 16:27 | Emergency (ER) | payer MEDICARE, MEDICAID, SELFPAY ==
--- NOTE | 2021-04-02 16:23 | ECG_ITS ---
APPROVED REPORT Exam: Resting ECG HR:76 bpm ECG Measurements Heart Rate 76 AXES IA 157 P -2 QRSd 94 QRS -25 QT 403 T 3 QTc 433 Conclusion SINUS RHYTHM BORDERLINE LEFT AXIS DEVIATION [QRS AXIS < -20] BORDERLINE ECG UNCONFIRMED REPORT Electronically signed by : Bennett Thomas MD 04/03/2021 16:44:02
[2021-04-02 16:27] VITALS: BP 167/86; PULSE 73; RESP 15; TEMP 36.9; O2SAT 97; BMI 36.4
--- NOTE | 2021-04-02 16:32 | XR_ITS ---
PROCEDURE INFORMATION: Exam: XR Chest Exam date and time: 04/02/2021 4:32 PM Age: 65 years old Clinical indication: Pain; Chest pressure; Patient HX: Covid; Additional info: Cp TECHNIQUE: Imaging protocol: XR of the chest. Views: 1 view. COMPARISON: CR XR CHEST PORTABLE 03/26/2021 6:24 PM FINDINGS: Airway: Patent Lungs: Low lung volumes causes crowding of the bronchovascular structures. Subtle bilateral infrahilar ground-glass airspace opacifications are suggested. Remainder of the lungs are clear. Pleural spaces: No large pleural effusions. No pneumothorax. Heart/Mediastinum: The heart is moderately enlarged. Vasculature: Calcified aortic knob. Bones/joints: No acute skeletal abnormality or aggressive osseous lesion. IMPRESSION: Concern for bilateral infrahilar acute airspace disease in which pneumonia should be entertained in the appropriate clinical setting.
--- NOTE | 2021-04-02 16:38 | HMH.EDGENADL ---
ED Disposition Condition on Discharge: Good - Critical Care Critical Care Time: No <Joshua Kee - Last Filed: 04/02/21 19:48> <Jarvis Charlton - Last Filed: 04/02/21 20:41> Clinical Impression: COVID-19 Chest pain Qualifiers: Chest pain type: other chest pain Qualified Code(s): R07.89 - Other chest pain CAP (community acquired pneumonia) Qualifiers: Laterality: unspecified laterality Qualified Code(s): J18.9 - Pneumonia, unspecified organism Disposition: Home, Self-Care Instructions: DI for COVID-19 (Suspected or Confirmed ) Additional Instructions: fluids and use meds and call pcp for follow up Prescriptions: dexAMETHasone [Decadron] 6 mg PO DAILY #6 tab Transmission Status: Pending to [facility] Referrals: Tristen Brown APRN [Primary Care Provider] - Attestation: On 04/02/21, the high probability of a clinically significant, sudden or life threatening deterioration of the following system(s) required my full and direct attention, intervention and personal management. The time I documented below is in addition to time spent performing reported procedures but includes the following listed in this critical care notation. Medical Decision Making - Medical Records Medical records reviewed: Yes: I reviewed the patient's medical records. - Ajit Inquiry Pt receiving controlled substance: No - Lab Data Result diagrams: 04/02/21 17:00 04/02/21 17:00 <VidhyaJoshua - Last Filed: 04/02/21 19:48> - Lab Data Lab results reviewed: Yes: I reviewed the patient's lab results. Result diagrams: 04/02/21 17:00 04/02/21 17:00 - Radiology Data #1 Image(s): Chest Image Reviewed: Yes I have reviewed radiologist's interpretation Preliminary Findings: Abnormal - CT Data CT Scan: Chest Time Received: 20:[address] Reviewed: Yes: I have viewed the radiologist's interpretation Preliminary Findings: Abnormal - ECG Data Tracing #1 Normal Sinus Rhythm: Yes Ischemic changes: non-specific ST-T wave changes <Jarvis Charlton - Last Filed: 04/02/21 20:41> Vital Signs: 04/02/21 16:27 Temperature 98.4 F Temperature Source Oral Pulse Rate [Right Radial] 73 Respiratory Rate 15 Blood Pressure [Right Arm] 167/86 H Blood Pressure Mean [Right Arm] 113 Blood Pressure Source [Right Arm] Automatic Cuff Blood Pressure Position [Right Arm] Sitting 02 Sat by Pulse Oximetry 97 Oxygen Delivery Method Room Air - Lab Data Lab Results 04/02/21 17:00: WBC 8.8, RBC 4.33, Hgb 13.1, Hct 41.7, MCV 96.5, MCH 30.3, MCHC 31.4 L, RDW 13.6, Plt Count 295, MPV 9.3, Neut % (Auto) 58.6, Lymph % (Auto) 31.4, [place] % (Auto) 4.1, Eos % (Auto) 5.0, Baso % (Auto) 0.9, Neut # (Auto) 5.2, Lymph # (Auto) 2.8, [place] # (Auto) 0.4, Eos # (Auto) 0.4, Baso # (Auto) 0.1 04/02/21 17:00: Sodium 141, Potassium 4.2, Chloride 107, Carbon Dioxide 29, Anion Gap 9.2, BUN 15, Creatinine 1.00, Estimated Creat Clear 88, Estimated GFR 56 L, Est GFR ( Amer) 67, Glucose 139 H, Calcium 9.0, Total Bilirubin 0.4, AST 22, ALT 16, Alkaline Phosphatase 76, Troponin I < 0.01, Total Protein 6.7, Albumin 3.9, Globulin 2.8, Albumin/Globulin Ratio 1.4 04/02/21 17:00: D-Dimer 0.97 H 04/02/21 19:14: Troponin I < 0.01 Orders (Tests/Meds): ED MEDICATIONS Discontinued Medications Generic Name Dose Route Start Last Admin Trade Name Freq PRN Reason Stop Dose Admin Albuterol/Ipratropium 4 puff 04/02/21 16:37 Combivent 20mcg/100mcg Respimat Inhaler IH 04/02/21 16:38 ONCE ONE Aspirin 324 mg 04/02/21 16:37 04/02/21 17:46 Aspirin 81mg Chewable Tablet PO 04/02/21 16:38 324 mg ONCE ONE Administration Azithromycin 500 mg/ Sodium 250 mls @ 250 mls/hr 04/02/21 19:45 Chloride IV 04/02/21 19:46 ONCE ONE Iopamidol 70 ml 04/02/21 18:44 04/02/21 18:45 Iopamidol-370 (76%);100ml Bottle IV 04/02/21 18:45 70 ml ONCE ONE Administration Methylprednisolone Sodium Succinate 125 m
[2021-04-02 17:29] LABS: Basophils # 0.1 K/mm3 (0-0.2); Basophils % 0.9 % (0.1-2.0); Eosinophils # 0.4 K/mm3 (0.0-0.4); Hematocrit 41.7 % (37.0-47.0); Hemoglobin 13.1 g/dL (12.2-16.2); Lymphocytes # 2.8 K/mm3 (0.7-4.5); Lymphocytes % 31.4 % (10-50); Mean Corpuscular HGB Conc 31.4 g/dL (31.8-35.4); Mean Corpuscular Hemoglobin 30.3 pg (27.0-31.2); Mean Corpuscular Volume 96.5 fl (81-99); Mean Platelet Volume 9.3 fl (7.4-10.4); Monocytes # 0.4 K/mm3 (0.1-1.0); Monocytes % 4.1 % (1.7-9.3); Neutrophils # 5.2 K/mm3 (1.8-7.8); Neutrophils % 58.6 % (37.0-80.0); Platelet Count 295 K/mm3 (142-424); Red Blood Count 4.33 M/mm3 (4.20-5.40); Red Cell Distribution Width 13.6 % (11.5-17.5); White Blood Count 8.8 K/mm3 (4.8-10.8)
[2021-04-02 17:30] LABS: Alanine Aminotransferase 16 U/L (12-78); Albumin Level 3.9 g/dl (3.5-5.0); Albumin/Globulin Ratio 1.4 (1.1-1.8); Alkaline Phosphatase 76 U/L (38-126); Anion Gap 9.2 mEq/L (5-15); Aspartate Amino Transferase 22 U/L (14-36); Bilirubin,Total 0.4 mg/dl (0.2-1.3); Blood Urea Nitrogen 15 mg/dl (7-17); Carbon Dioxide 29 mmol/L (22.0-30.0); Chloride 107 mmol/L (98-107); Creatinine Clearance Estimated 88 mL/min (50-200); Estimated Glomerular Filt Rate 56 ml/min (>60); GFR (African American) 67 ML/MIN (>60); Globulin 2.8 g/dL (1.3-3.2); Glucose 139 mg/dl (74-100); Potassium 4.2 mmoL/L (3.5-5.1); Sodium 141 mmol/L (136-145); Total Protein,Serum 6.7 g/dl (6.3-8.2)
[2021-04-02 17:35] LABS: D-Dimer 0.97 ug/mL (0.0-0.5)
[2021-04-02 17:45] LABS: Troponin I < 0.01 ng/ml (0.00-0.034)
--- NOTE | 2021-04-02 17:51 | CT_ITS ---
PROCEDURE INFORMATION: Exam: CTA Chest With Contrast Exam date and time: 04/02/2021 5:51 PM Age: 65 years old Clinical indication: Chest wall pain; Additional info: Cp, ddimer=0.97, covid TECHNIQUE: Imaging protocol: Computed tomographic angiography of the chest with contrast. 3D rendering (Not supervised by radiologist): MIP and/or 3D reconstructed images were created by the technologist. Radiation optimization: All CT scans at this facility use at least one of these dose optimization techniques: automated exposure control; mA and/or kV adjustment per patient size (includes targeted exams where dose is matched to clinical indication); or iterative reconstruction. Contrast material: ISOVUE 370; Contrast volume: 70 ml; Contrast route: INTRAVENOUS (IV); COMPARISON: CR XR CHEST PORTABLE 04/02/2021 4:46 PM FINDINGS: Limitations: Evaluation of the lung parenchyma is limited by respiratory motion. Pulmonary arteries: Normal. No pulmonary emboli. Aorta: The aorta demonstrates mild atherosclerotic calcification. No acute pathology in the aorta. Thyroid: The thyroid gland is normal. Lungs: There is a mosaic attenuation to the lung parenchyma appreciated. No large airspace consolidations are noted in the lungs. Subtle ground-glass airspace opacities are suggested in the bilateral upper lobes, as well as in the bilateral infrahilar regions. Pleural spaces: Unremarkable. No pneumothorax. No pleural effusion. Heart: The heart is mildly enlarged. No pericardial thickening or effusion. Mediastinal space: Calcified bilateral hilar and mediastinal granulomas are of no clinical concern. Lymph nodes: Unremarkable. No enlarged lymph nodes. Diaphragm: A small hiatal hernia is present. Bones/joints: No acute skeletal pathology. Moderate multilevel degenerative changes of the spine, as manifested by multilevel anterior osteophytes and multilevel decrease in intervertebral disc space. Soft tissues: Unremarkable. Other findings: The visualized intra-abdominal structures demonstrate no acute findings. IMPRESSION: 1. Lung findings could be related to artifact from respiratory motion, however I am concerned for the presence of either diffuse small airways disease versus developing atypical pneumonia in the appropriate clinical setting. Follow-up advised. 2. No other acute thoracic pathology is identified. Specifically, no evidence of pulmonary emboli. 3. Incidental findings as above.
[2021-04-02 19:30] LABS: Influenza A, PCR Not Detected (NotDetected); Influenza B, PCR Not Detected (NotDetected)
[2021-04-02 20:05] LABS: Troponin I < 0.01 ng/ml (0.00-0.034)
[2021-04-02 20:35] LABS: Coronavirus 19, PCR Detected (NotDetected)
[2021-04-02 20:43] VITALS: BP 167/80; PULSE 75; RESP 16; TEMP 36.9; O2SAT 94
[2021-04-02 20:59] LABS: NT Pro Brain Natriuretic Pep. 103 pg/mL (0-125)
== END 2021-04-02 20:53 | disposition home or self-care (01) ==
PROVIDERS: Emergency Medicine; Emergency Provider Emergency Medicine; PCP Nurse Practitioner Family
DX: U07.1 COVID-19 (principal); J12.82 Pneumonia due to coronavirus disease 2019; K21.9 Gastro-esophageal reflux disease without esophagitis; E78.5 Hyperlipidemia, unspecified; I10 Essential (primary) hypertension; E11.9 Type 2 diabetes mellitus without complications
CPT/HCPCS: 71045; 71275; 80053; 83880; 84484; 85025; 85378; 93005; 96374; 99283; C9803; Q9967; U0003; U0005

== ENCOUNTER → 2021-05-08 12:12 | Outpatient (CLI) | payer MEDICARE, MEDICAID, SELFPAY ==
[2021-05-08 18:45] LABS: Amphetamine/Metha Screen,Urine Negative ng/ml (<1000); Barbiturates Screen,Urine Negative ng/ml (<200)
[2021-05-08 18:46] LABS: Benzodiazepines Screen,Urine Negative ng/ml (<200)
[2021-05-08 18:47] LABS: Cannabinoid Screen,Urine Negative ng/ml (<50); Cocaine Screen,Urine Negative ng/ml (<300)
[2021-05-08 18:48] LABS: Methadone Screen,Urine Negative ng/ml (<300)
[2021-05-08 18:49] LABS: Opiate Screen,Urine Positive ng/ml (<300); Phencyclidine Screen,Urine Negative ng/ml (<25)
== END ==
PROVIDERS: Visit Provider Nurse Practitioner Family
DX: M25.512 Pain in left shoulder (principal); Z79.899 Other long term (current) drug therapy
CPT/HCPCS: 80305

== ENCOUNTER 2021-06-20 17:41 | Observation (INO) | payer MEDICARE, MEDICAID, SELFPAY ==
[2021-06-20] VITALS (8 sets, daily range): BP systolic 110–157; BP diastolic 60–86; PULSE 69–86; RESP 13–21; TEMP 36.8; O2SAT 90–96; BMI 36.4
--- NOTE | 2021-06-20 17:26 | ECG_ITS ---
APPROVED REPORT Exam: Resting ECG HR:84 bpm ECG Measurements Heart Rate 84 AXES AR 151 P 37 QRSd 86 QRS -53 QT 390 T 37 QTc 432 Conclusion SINUS RHYTHM Left atrial abnormality ABNORMAL ECG UNCONFIRMED REPORT Electronically signed by : Bennett Thomas MD 06/21/2021 11:46:36
--- NOTE | 2021-06-20 17:56 | XR_ITS ---
PROCEDURE INFORMATION: Exam: XR Chest Exam date and time: 06/20/2021 6:23 PM Age: 66 years old Clinical indication: Shortness of breath; Additional info: SOA TECHNIQUE: Imaging protocol: XR of the chest. Views: 1 view. COMPARISON: CR XR CHEST PORTABLE 04/02/2021 4:46 PM FINDINGS: Lungs: Bibasilar haziness of the lung parenchyma. Regions of peribronchial thickening demonstrated at the right lung base. Overall findings not significantly changed compared with the previous study. Pleural spaces: Minimal blunting of the left costophrenic angle. A small left pleural effusion could not be excluded. Heart/Mediastinum: Unremarkable. No cardiomegaly. Bones/joints: Unremarkable. IMPRESSION: 1. Bibasilar regions of opacification. Findings suggestive of patchy infiltrates. Superimposed regions of bronchitis suggested. 2. Could not exclude superimposed small pleural effusion. 3. Findings not significantly changed since 04/02/2021.
[2021-06-20 18:12] LABS: Chloride 105 mmol/L (98-107); Potassium 3.4 mmoL/L (3.5-5.1); Sodium 137 mmol/L (136-145)
[2021-06-20 18:13] LABS: Basophils # 0.3 K/mm3 (0-0.2); Basophils % 2.9 % (0.1-2.0); Eosinophils # 0.3 K/mm3 (0.0-0.4); Hematocrit 44.5 % (37.0-47.0); Hemoglobin 14.1 g/dL (12.2-16.2); Lymphocytes # 3.1 K/mm3 (0.7-4.5); Mean Corpuscular HGB Conc 31.7 g/dL (31.8-35.4); Mean Corpuscular Hemoglobin 30.6 pg (27.0-31.2); Mean Corpuscular Volume 96.8 fl (81-99); Mean Platelet Volume 10.1 fl (7.4-10.4); Monocytes # 0.4 K/mm3 (0.1-1.0); Monocytes % 4.7 % (1.7-9.3); Neutrophils # 4.8 K/mm3 (1.8-7.8); Neutrophils % 54.2 % (37.0-80.0); Platelet Count 321 K/mm3 (142-424); Red Cell Distribution Width 13.9 % (11.5-17.5); White Blood Count 8.9 K/mm3 (4.8-10.8)
[2021-06-20 18:14] LABS: Alanine Aminotransferase 24 U/L (12-78); Aspartate Amino Transferase 27 U/L (14-36); Blood Urea Nitrogen 18 mg/dl (7-17); Creatinine Clearance Estimated 87 mL/min (50-200); Estimated Glomerular Filt Rate 55 ml/min (>60); GFR (African American) 67 ML/MIN (>60)
[2021-06-20 18:15] LABS: Albumin Level 3.9 g/dl (3.5-5.0); Albumin/Globulin Ratio 1.4 (1.1-1.8); Alkaline Phosphatase 69 U/L (38-126); Anion Gap 10.4 mEq/L (5-15); Bilirubin,Total 0.5 mg/dl (0.2-1.3); Calcium 8.3 mg/dl (8.4-10.2); Carbon Dioxide 25 mmol/L (22.0-30.0); Globulin 2.8 g/dL (1.3-3.2); Glucose 135 mg/dl (74-100); Total Protein,Serum 6.7 g/dl (6.3-8.2)
[2021-06-20 18:37] LABS: Troponin I < 0.01 ng/ml (0.00-0.034)
[2021-06-20 21:03] LABS: Lipase 118 U/L (23-300)
[2021-06-20 21:08] LABS: D-Dimer 1.16 ug/mL (0.0-0.5)
[2021-06-20 21:14] LABS: NT Pro Brain Natriuretic Pep. 258 pg/mL (0-125)
[2021-06-20 21:29] LABS: Troponin I < 0.01 ng/ml (0.00-0.034)
--- NOTE | 2021-06-20 22:08 | CT_ITS ---
PROCEDURE INFORMATION: Exam: CTA Chest With Contrast Exam date and time: 06/20/2021 10:29 PM Age: 66 years old Clinical indication: Sternal or substernal pain; Additional info: Chest pain, dyspnea, elevated d dimer TECHNIQUE: Imaging protocol: Computed tomographic angiography of the chest with contrast. 3D rendering (Not supervised by radiologist): MIP and/or 3D reconstructed images were created by the technologist. Radiation optimization: All CT scans at this facility use at least one of these dose optimization techniques: automated exposure control; mA and/or kV adjustment per patient size (includes targeted exams where dose is matched to clinical indication); or iterative reconstruction. Contrast material: ISOVUE 370; Contrast volume: 70 ml; Contrast route: INTRAVENOUS (IV); COMPARISON: CT ANGIO CHEST PE PROTOCOL 04/02/2021 6:07 PM FINDINGS: Pulmonary arteries: Normal. No pulmonary emboli. Aorta: Unremarkable. No aortic aneurysm. No aortic dissection. Lungs: Scattered areas of atelectasis bilaterally. No consolidation. No masses. Pleural spaces: Unremarkable. No pneumothorax. No pleural effusion. Heart: Unremarkable. No cardiomegaly. No pericardial effusion. Lymph nodes: Unremarkable. No enlarged lymph nodes. Bones/joints: Unremarkable. No acute fracture. Soft tissues: Unremarkable. IMPRESSION: No acute findings.
--- NOTE | 2021-06-20 22:09 | HMH.EDGENADL ---
ED Disposition Clinical Impression: Somnolence Chest pain Qualifiers: Chest pain type: other chest pain Qualified Code(s): R07.89 - Other chest pain Disposition: Admitted as Observation Condition on Discharge: Undetermined Referrals: Jarvis Charlton MD [Primary Care Provider] - - Critical Care Critical Care Time: No Attestation: On 06/20/21, the high probability of a clinically significant, sudden or life threatening deterioration of the following system(s) required my full and direct attention, intervention and personal management. The time I documented below is in addition to time spent performing reported procedures but includes the following listed in this critical care notation. Medical Decision Making - Medical Records Medical records reviewed: Yes: I reviewed the patient's medical records. - Ajit Inquiry Pt receiving controlled substance: No Vital Signs: 06/20/21 17:41 06/20/21 17:55 06/20/21 18:00 Temperature 98.3 F Temperature Source Oral Pulse Rate 84 82 Pulse Rate [Right] 86 Respiratory Rate 16 21 17 Blood Pressure 146/86 H 149/80 H Blood Pressure [Right Arm] 134/74 Blood Pressure Mean [Right Arm] 94 Blood Pressure Source Automatic Cuff Automatic Cuff Blood Pressure Source [Right Arm] Automatic Cuff Blood Pressure Position Sitting Sitting Blood Pressure Position [Right Arm] Sitting 02 Sat by Pulse Oximetry 94 L 95 95 Oxygen Delivery Method Room Air Room Air Room Air 06/20/21 18:30 06/20/21 19:00 06/20/21 19:31 Temperature Temperature Source Pulse Rate 77 74 70 Pulse Rate [Right] Respiratory Rate 16 15 14 Blood Pressure 125/84 132/70 110/62 Blood Pressure [Right Arm] Blood Pressure Mean [Right Arm] Blood Pressure Source Blood Pressure Source [Right Arm] Blood Pressure Position Blood Pressure Position [Right Arm] 02 Sat by Pulse Oximetry 96 90 L 90 L Oxygen Delivery Method Room Air Room Air Room Air 06/20/21 20:00 06/20/21 20:31 Temperature Temperature Source Pulse Rate 69 82 Pulse Rate [Right] Respiratory Rate 16 13 Blood Pressure 111/60 157/78 H Blood Pressure [Right Arm] Blood Pressure Mean [Right Arm] Blood Pressure Source Blood Pressure Source [Right Arm] Blood Pressure Position Blood Pressure Position [Right Arm] 02 Sat by Pulse Oximetry 91 L 95 Oxygen Delivery Method Room Air Room Air - Lab Data Lab results reviewed: Yes: I reviewed the patient's lab results. Lab Results 06/20/21 17:50: WBC 8.9, RBC 4.60, Hgb 14.1, Hct 44.5, MCV 96.8, MCH 30.6, MCHC 31.7 L, RDW 13.9, Plt Count 321, MPV 10.1, Neut % (Auto) 54.2, Lymph % (Auto) 35.0, [place] % (Auto) 4.7, Eos % (Auto) 3.0, Baso % (Auto) 2.9 H, Neut # (Auto) 4.8, Lymph # (Auto) 3.1, [place] # (Auto) 0.4, Eos # (Auto) 0.3, Baso # (Auto) 0.3 H 06/20/21 17:50: Sodium 137, Potassium 3.4 L, Chloride 105, Carbon Dioxide 25, Anion Gap 10.4, BUN 18 H, Creatinine 1.00, Estimated Creat Clear 87, Estimated GFR 55 L, Est GFR ( Amer) 67, Glucose 135 H, Calcium 8.3 L, Total Bilirubin 0.5, AST 27, ALT 24, Alkaline Phosphatase 69, Troponin I < 0.01, Total Protein 6.7, Albumin 3.9, Globulin 2.8, Albumin/Globulin Ratio 1.4 06/20/21 17:50: NT-Pro-B Natriuret Pep 258 H 06/20/21 17:50: D-Dimer 1.16 H 06/20/21 17:50: Lipase 118 06/20/21 20:50: Troponin I < 0.01 06/21/21 00:10: Troponin I < 0.01 06/21/21 00:49: POC Glucose 116 H 06/21/21 00:59: VBG pH 7.36, VBG pCO2 46.9, VBG pO2 102.9 H, VBG HCO3 25.8, VBG Total CO2 27.2 H, VBG O2 Saturation 97.9 H, VBG Base Excess 0.3 Result diagrams: 06/20/21 17:50 06/20/21 17:50 Orders (Tests/Meds): ED MEDICATIONS Generic Name Dose Route Start Last Admin Trade Name Freq PRN Reason Stop Dose Admin Sodium Chloride 10 ml 06/20/21 17:56 06/20/21 21:05 Sodium Chloride 0.9% 10ml Flush Syringe IV 07/20/21 17:55 10 ml NEEDED PRN Administration Maintain IV Site Discontinued Medications Generic Name Dose Rou
--- NOTE | 2021-06-20 22:16 | CT_ITS ---
PROCEDURE INFORMATION: Exam: CT Head Without Contrast Exam date and time: 06/20/2021 10:27 PM Age: 66 years old Clinical indication: Injury or trauma; Fall; Bleeding/hemorrhage; Additional info: Fall, on xarelto TECHNIQUE: Imaging protocol: Computed tomography of the head without contrast. Radiation optimization: All CT scans at this facility use at least one of these dose optimization techniques: automated exposure control; mA and/or kV adjustment per patient size (includes targeted exams where dose is matched to clinical indication); or iterative reconstruction. COMPARISON: No relevant prior studies available. FINDINGS: Brain: Normal. No hemorrhage. Unremarkable white matter. No mass effect. Cerebral ventricles: No ventriculomegaly. Paranasal sinuses: Visualized sinuses are unremarkable. No fluid levels. Mastoid air cells: Visualized mastoid air cells are well aerated. Bones/joints: Unremarkable. No acute fracture. Soft tissues: Unremarkable. IMPRESSION: No acute intracranial abnormality.
--- NOTE | 2021-06-20 23:08 | ECG_ITS ---
APPROVED REPORT Exam: Resting ECG HR:72 bpm ECG Measurements Heart Rate 72 AXES IL 137 P -35 QRSd 104 QRS -35 QT 458 T 2 QTc 482 Conclusion SINUS RHYTHM LEFT AXIS DEVIATION [QRS AXIS < -30] PROLONGED QT INTERVAL ABNORMAL ECG UNCONFIRMED REPORT Electronically signed by : Bennett Thomas MD 06/21/2021 11:45:06
[2021-06-21] VITALS (20 sets, daily range): BP systolic 94–156; BP diastolic 47–81; PULSE 61–86; RESP 14–22; TEMP 36.3–37.1; O2SAT 90–97; BMI 38.9
--- NOTE | 2021-06-21 | IR_ITS ---
APPROVED REPORT Patient Location: Inpatient Nursing Administrator: CARMELO March RT (R) PROCEDURES Left heart catheterization Left ventriculogram Selective coronary angiogram INDICATION Unstable angina Informed consent was obtained prior to the procedure. COMPLICATIONS None Estimated Blood Loss: Less than 10 mls TECHNIQUE One percent lidocaine used to anesthetize the right anterior aspect of the wrist. The right radial artery was accessed via the Seldinger technique. A 6 [place] sheath was placed in the right radial artery. 2.5 mg of verapamil, 800 mcg of nitroglycerin, 1mg Lidocaine and 5000 U Heparin were given through the arterial sheath. The papa catheter was also used to perform left heart catheterization, left ventriculogram and selective coronary angiogram. At the end of the procedure the sheath was removed good hemostasis was achieved using Traclet band, patient was transferred to the postop holding area in stable condition. ANGIOGRAPHIC RESULTS The left main artery Normal The left anterior descending artery Normal The circumflex artery Normal The right coronary artery Dominant normal The ALBA ventriculogram reveals Normal 65% The left ventricular end-diastolic pressure Severe to critically elevated at 45 mmHg IMPRESSION Normal coronary arteries Normal ejection fraction Severe to critically elevated LVEDP PLAN 1. Treatment of severe diastolic dysfunction with loop diuretics 2. Recommend weight loss 3. Fluid restriction and salt restriction Electronically signed by : Chirag Jiang MD 06/21/2021 11:57:51
--- NOTE | 2021-06-21 00:30 | PC.NURSE ---
MD attempting to s/w pt, she is somnolent and difficult to arouse. New order for 2mg Narcan IVP. Small effective response for a short time. However, pt became somnolent again. VBG ordered per MD.
[2021-06-21 00:54] LABS: Troponin I < 0.01 ng/ml (0.00-0.034)
[2021-06-21 00:56] LABS: POC Glucose,Bedside 116 (70-110)
--- NOTE | 2021-06-21 01:06 | PC.NURSE ---
Paged Dr. Thomas
[2021-06-21 01:07] LABS: VBG Base Excess 0.3 mmol/L (-2.4-2.3); VBG HCO3 25.8 mmol/L (23-30); VBG Oxygen Saturation 97.9 % (50-70); VBG PCO2 46.9 mmol/L (35-51); VBG PH 7.36 mmol/L (7.31-7.41); VBG PO2 102.9 mmol/L (28-40); VBG Total CO2 27.2 mmol/L (23-27)
--- NOTE | 2021-06-21 01:07 | PC.NURSE ---
STEPHEN ZIMMERMAN speaking to Dr. Thomas
--- NOTE | 2021-06-21 01:07 | PC.NURSE ---
Dr. Toledo s/w Dr. Thomas
--- NOTE | 2021-06-21 01:09 | PC.NURSE ---
Notified [employer] supervisor of pt admission and need for bed assignment
[2021-06-21 01:22] LABS: Microscopic, Urine URINE MICROSCOPIC (MICROSCOPIC)
[2021-06-21 01:23] LABS: Appearance,Urine CLEAR (Clear); Bilirubin,Urine Negative (Negative); Blood, Urine Negative (Negative); Color,Urine YELLOW (Yellow); Glucose,Urine (UA) Negative (Negative); Ketones,Urine Negative (Negative); Leukocyte Esterase,Urine Negative (Negative); Nitrate,Urine Negative (Negative); PH,Urine 5.5 (5.0-8.5); Protein,Urine Negative (Negative); Specific Gravity, Urine <= 1.005 (1.005-1.030); Urobilinogen,Urine 0.2 EU/dl (0.2)
[2021-06-21 01:53] LABS: WBC,Urine Occasional #/hpf (0-3)
[2021-06-21 05:56] LABS: Basophils # 0.1 K/mm3 (0-0.2); Basophils % 0.9 % (0.1-2.0); Eosinophils # 0.2 K/mm3 (0.0-0.4); Eosinophils % 3.8 % (0.1-12.0); Hemoglobin 12.9 g/dL (12.2-16.2); Lymphocytes # 2.5 K/mm3 (0.7-4.5); Lymphocytes % 38.2 % (10-50); Mean Corpuscular HGB Conc 31.4 g/dL (31.8-35.4); Mean Corpuscular Hemoglobin 30.7 pg (27.0-31.2); Mean Corpuscular Volume 97.7 fl (81-99); Mean Platelet Volume 10.6 fl (7.4-10.4); Monocytes # 0.4 K/mm3 (0.1-1.0); Monocytes % 6.1 % (1.7-9.3); Neutrophils # 3.3 K/mm3 (1.8-7.8); Neutrophils % 50.9 % (37.0-80.0); Platelet Count 273 K/mm3 (142-424); White Blood Count 6.5 K/mm3 (4.8-10.8)
[2021-06-21 06:02] LABS: Chloride 106 mmol/L (98-107); Sodium 137 mmol/L (136-145)
[2021-06-21 06:03] LABS: Potassium 3.8 mmoL/L (3.5-5.1)
[2021-06-21 06:06] LABS: Anion Gap 8.8 mEq/L (5-15); Blood Urea Nitrogen 18 mg/dl (7-17); Calcium 7.7 mg/dl (8.4-10.2); Carbon Dioxide 26 mmol/L (22.0-30.0); Creatinine Clearance Estimated 84 mL/min (50-200); Estimated Glomerular Filt Rate 50 ml/min (>60); GFR (African American) 60 ML/MIN (>60); Glucose 126 mg/dl (74-100)
[2021-06-21 06:10] LABS: POC Glucose,Bedside 148 (70-110)
[2021-06-21 06:24] LABS: Troponin I < 0.01 ng/ml (0.00-0.034)
--- NOTE | 2021-06-21 07:30 | P.CONPHA_ITS ---
[facility] VTE Monitoring - Patient Demographics Admission date: 06/21/21 Report Date: 06/21/21 Time: 07:30 Allergies/Adverse Reactions: Patient Allergies No Known Allergies Allergy (Verified 06/07/21 14:45) Height: 1.65 m Weight: 105.914 kg Patient Problems: Current Active Problems Somnolence (Acute) Chest pain (Acute) - VTE Risk Labs: VTE Related Lab Results Hgb 12.9 g/dL (12.2-16.2) 06/21/21 05:23 Hct 41.0 % (37.0-47.0) 06/21/21 05:23 Plt Count 273 K/mm3 (142-424) 06/21/21 05:23 BUN 18 mg/dl (7-17) H 06/21/21 05:23 Creatinine 1.10 mg/dl (0.52-1.04) H 06/21/21 05:23 Estimated Creat Clear 84 mL/min (50-200) 06/21/21 05:23 Was VTE Risk Assessment Performed: Yes VTE Score: 3 VTE Risk Level: Low Risk Clinical Trial Participant: No - Prophylaxis VTE Prophylaxis Ordered?: Yes Types of VTE Prophylaxis: TEDS Knee High
--- NOTE | 2021-06-21 07:39 | HMH.PHAINT ---
home medication list verified using list from [facility] pharmacy and pt interview with nurse
--- NOTE | 2021-06-21 08:29 | HMH.HP ---
*Admission Date: 06/21/21 *Chief complaint: Chest Pain *History of present illness: 66-year-old female patient into [facility] emergency department for reports of left-sided chest pain. She reports she was walking behind her family as they were carrying in groceries from the car to the house, she reports sitting on porch and having left-sided chest pain that was sharp/stabbing. She denies radiation, rates pain 10 out of 10 at that time and states that she was short of breath, nauseated, and very sweaty. She reports that she sat there pain slowly decreased to 8 out of 10 when she came to the emergency department. This morning she rates pain still at 8 out of 10 and denies any radiation. She denies fever/chills/body aches, no further nausea after last night and denies vomiting/diarrhea. [facility] History I have reviewed the patient's past medical history: Yes Medical History: Reports:: Anxiety, Asthma, Diabetes Mellitus Type 2, Gastroesophageal Reflux Disease(GERD), Hyperlipidemia, Hypertension, Migraine Denies:: Cancer, Diabetes Mellitus Type 1, Internal Pacemaker, MRSA, Seizures *Have you ever received a pneumonia vaccine?: Yes *Have you received a flu vaccine this season?: No Other Medical History: Reports: Arthritis, Hypothyroidism, Thyroid Disease. Denies: Blood Transfusion Reaction Laterality Cases: Left: Total Knee Replacement, Bilateral: Tonsillectomy Other Surgeries: Yes: Hysterectomy-Total, Other. No: Pacemaker Amputation: No Fractures: No - *Social History Last grade of school completed: High school graduate Smoking Status: Former smoker Tobacco Type: cigarettes # Packs/Day (cigarettes): 1 #Yrs smoked (if former smoker): 12 Alcohol Intake: never Substance Use Type: denies use *Occupational Status:: retired [facility] Members: family *Travel in the last 8 weeks: None - Psychiatric History Pschychiatric History:: Reports:: Anxiety Family Hx:: Cancer, Diabetes, Heart Attack, Hyperlipidemia, Hypertension, Thyroid Disorder Review of Systems - Review of Systems Review of systems:: pertinent systems reviewed and negative unless documented below - Constitutional Reports fatigue, Denies body ache(s) - Eyes Denies blurry vision, Denies double vision - ENT Denies dental pain, Denies difficulty swallowing - *Cardiovascular Reports chest pain, Reports chest pain at rest, Reports chest pain with activity, Reports excessive sweating, Reports shortness of breath, Reports shortness of breath with activity - *Respiratory Reports cough, Reports shortness of breath, Reports shortness of breath with activity, Denies coughing up blood - *Gastrointestinal Denies abdominal pain, Denies change in bowel habits, Denies difficulty swallowing - *Musculoskeletal Denies joint pain, Denies muscle weakness - Integumentary/Breasts Denies hair loss, Denies yellowing of the skin - *Neurologic Reports headache(s), Reports other (Reports generalized weakness), Denies confusion, Denies localized weakness, Denies tingling/numbness/burning sensations - Psychiatric Reports depression, Denies abnormal sleep pattern - Endocrine Reports excessive sweating, Denies cold intolerance, Denies increased hunger - Hematologic/Lymphatic Denies easy bleeding, Denies easy bruising - Allergic/Immunologic Denies GI upset with certain foods, Denies tongue swelling Meds Home Medications Medication Instructions Recorded Confirmed Type Fluticasone Propionate [Flovent 1 puffs IH BID puff 06/28/20 06/21/21 Rx Hfa 110mcg Inhaler] Rivaroxaban [Xarelto 10mg tablet] 10 mg PO DAILY #14 tab 06/28/20 06/21/21 Rx amlodipine 5 mg tablet 5 mg PO HS #90 tab 11/23/20 06/21/21 Rx ferrous sulfate 325 mg (65 mg 325 mg PO DAILY #90 tab 11/23/20 06/21/21 Rx iron) tablet lisinopril 10 mg tablet 10 mg PO DAILY #90 tab 11/23/20 06/21/21 Rx cetirizine 10 mg tablet 10 mg PO DAILY #90 tab 03/14/21 06/21/21 Rx cariprazine 1.5 mg
[2021-06-21 09:05] LABS: Coronavirus 19, PCR Not Detected (NotDetected); Influenza A, PCR Not Detected (NotDetected); Influenza B, PCR Not Detected (NotDetected)
--- NOTE | 2021-06-21 10:04 | CA_ITS ---
APPROVED REPORT EXAM: Comprehensive 2D, Doppler, and color-flow Echocardiogram Braddisher: Sharmin Trivedi, RCS, RVS Ht: 5 ft 5 in Wt: 233lbs BSA: 2.11 BP: 149/80 mmHg Indications: CP, migraines, Diastolic dysfunctio, Ex-smoker, SOB, HTN, HLD, Obesity 2D Dimensions LVDd 4.82 cm F: 3.9 - 5.3 LA Volume 53.60 mL Aortic Root 1.66 cm F: 2.7 - 3.3 LA Volume Index 25.40 mL/m2 (M/F) 16-34 Left Atrium 3.01 cm F: 2.7 - 3.8 LVOT 1.86 cm (M/F) 1.5-2.5 M-Mode Dimensions RVDd 2.47 cm (0.9-2.6) LA Diam 3.39 cm (1.9-4.0) LVDd 5.07 cm (3.5-5.7) Ao Diam 2.92 cm (2.0-3.7) LVDs 2.85 cm (3.5-5.7) IVSd 1.24 cm (0.6-1.1) PWd 0.85 cm (0.6-1.1) EF (Teich) 60.00% EPSs 1.53 cm FS 35.00% EDV (Teich) 122.10 mL TAPSE 2.42 (<1.7) ESV (Teich) 30.90 mL LV Diastology E Decel Time 357.00 (160-240 msec) E/A Ratio 0.69 MED E' 5.60 (< 7 cm/sec) MED A' 8.10 cm/s E'/MED E' Ratio 14.41 (>14) LAT E' 4.70 (<10 cm/sec) LAT A' 7.80 cm/s E/LAT E' Ratio 17.17 (>14) Aortic Valve LVOT Max 117.00 (70-110 cm/s) LVOT VTI 27.33 cm AoV Peak Chin. 164.00 (50-130 cm/s) AO Peak GR. 10.70 mmHg AO Mean GR. 5.40 (<5 mmHg) AO VTI 35.21 (18-25 cm) AFSHAN (VTI) 2.11 (2.5-4.5 cm2) Mitral Valve MV A Velocity 117.00 (40-130 cm/s) E/A Ratio 0.69 MV Decel. Time 357.00 (160-240 ms) MV Mean Gr. 2.40 (<2mmHg) Pulmonary Valve PV Peak Velocity 79.00 (50-150 cm/s) Tricuspid Valve TR P. Velocity 226.00 cm/s Left Ventricle Left atrium is mildly enlarged, left ventricle is normal size, mild concentric left ventricular hypertrophy, estimated ejection fraction 55% with no regional wall motion abnormality, grade 1 diastolic dysfunction seen with tissue Doppler evidence of raise left atrial pressure. Right Ventricle Right atrium and right ventricle are mildly enlarged with normal contractility. Aortic Valve Aortic valve is minimally thickened and fibrosed, there is no aortic stenosis or aortic insufficiency. Mitral Valve Mitral valve grossly normal, there is trace mitral regurgitation. Tricuspid Valve Tricuspid grossly normal, there is trace tricuspid regurgitation, tricuspid regurgitation jet velocity is inadequate for calculation of the right ventricular systolic pressure. Pulmonic Valve Pulmonic valve is poorly visualized. Great Vessels Aortic root is normal size. Inferior vena cava is normal size with normal inspiratory collapse. Pericardium No significant pericardial effusion noted. Conclusion 1. Mild biatrial enlargement, normal left ventricular size, mild concentric left ventricular hypertrophy, estimated ejection fraction 55% with no regional wall motion abnormality, grade 1 diastolic dysfunction seen with tissue Doppler evidence of raise left atrial pressure. 2. Mildly enlarged right ventricle with normal contractility. 3. Trace mitral and tricuspid regurgitation. 4. No significant pericardial effusion. 5. Inferior vena cava is normal size with normal inspiratory collapse. Electronically signed by : Marcelino Cuh MD 06/22/2021 09:33:00
--- NOTE | 2021-06-21 10:05 | HMH.CNCARD ---
History of Present Illness Consult date: 06/21/21 Requesting physician: Jarvis Charlton Consult reason: chest pain Chief complaint: chest pain History of present illness: This is a 66-year-old white female who presented to the emergency department complaints of chest pain. She states that she was sitting on her porch last night when she had sudden onset of substernal chest pain that she describes as a sharp sensation. She states that this was a 10 out of 10 pain radiating to her left neck, left side of her jaw and her left upper extremity and back. The patient states that it was associated with shortness of breath, nausea and diaphoresis and clamminess. The patient states that this was worse with exertion. Nothing really helped to improve the pain. She states that she she continues to have the substernal chest pain this morning. She rates it at a 9 out of 10 in intensity at this time. She states that she has associated numbness in her bilateral upper extremities this morning as well. She denies any fever, chills, vomiting, diarrhea, PND or orthopnea. [facility] History I have reviewed the patient's past medical history: Yes Medical History: Reports:: Anxiety, Asthma, Diabetes Mellitus Type 2, Gastroesophageal Reflux Disease(GERD), Hyperlipidemia, Hypertension, Migraine Denies:: Cancer, Diabetes Mellitus Type 1, Internal Pacemaker, MRSA, Seizures *Have you ever received a pneumonia vaccine?: Yes *Have you received a flu vaccine this season?: No Other Medical History: Reports: Arthritis, Hypothyroidism, Thyroid Disease. Denies: Blood Transfusion Reaction Laterality Cases: Left: Total Knee Replacement, Bilateral: Tonsillectomy Other Surgeries: Yes: Hysterectomy-Total, Other. No: Pacemaker Amputation: No Fractures: No - *Social History Last grade of school completed: High school graduate Smoking Status: Former smoker Tobacco Type: cigarettes # Packs/Day (cigarettes): 1 #Yrs smoked (if former smoker): 12 Alcohol Intake: never Substance Use Type: denies use *Occupational Status:: retired [facility] Household Members: family *Travel in the last 8 weeks: None - Psychiatric History Pschychiatric History:: Reports:: Anxiety Family Hx:: Cancer, Diabetes, Heart Attack, Hyperlipidemia, Hypertension, Thyroid Disorder Meds Home Medications Medication Instructions Recorded Confirmed Type Fluticasone Propionate [Flovent 1 puffs IH BID puff 06/28/20 06/21/21 Rx Hfa 110mcg Inhaler] Rivaroxaban [Xarelto 10mg tablet] 10 mg PO DAILY #14 tab 06/28/20 06/21/21 Rx amlodipine 5 mg tablet 5 mg PO HS #90 tab 11/23/20 06/21/21 Rx ferrous sulfate 325 mg (65 mg 325 mg PO DAILY #90 tab 11/23/20 06/21/21 Rx iron) tablet lisinopril 10 mg tablet 10 mg PO DAILY #90 tab 11/23/20 06/21/21 Rx cetirizine 10 mg tablet 10 mg PO DAILY #90 tab 03/14/21 06/21/21 Rx cariprazine 1.5 mg capsule 1.5 mg PO DAILY #30 cap 06/07/21 06/21/21 Rx gabapentin 600 mg tablet 600 mg PO TID #90 tab 06/07/21 06/21/21 Rx hydrocodone 5 mg-acetaminophen 325 1 tab PO Q6H PRN #120 tab 06/07/21 06/21/21 Rx mg tablet Pantoprazole Sodium 40 mg PO DAILY 06/21/21 06/21/21 History Trazodone HCl 150 mg PO HS 06/21/21 06/21/21 History hydrOXYzine HCL [Hydroxyzine HCl] 25 mg PO TIDP PRN 06/21/21 06/21/21 History Allergies Allergy/AdvReac Type Severity Reaction Status Date / Time No Known Allergies Allergy Verified 06/07/21 14:45 Exam Vital signs and Labs for Last 24 Hours: Temp Pulse Resp BP Pulse Ox 97.4 F L 62 20 111/53 L 95 06/21/21 08:00 06/21/21 08:00 06/21/21 08:00 06/21/21 08:00 06/21/21 08:00 Laboratory Results - last 24 hr 06/20/21 17:50: WBC 8.9, RBC 4.60, Hgb 14.1, Hct 44.5, MCV 96.8, MCH 30.6, MCHC 31.7 L, RDW 13.9, Plt Count 321, MPV 10.1, Neut % (Auto) 54.2, Lymph % (Auto) 35.0, Gordon % (Auto) 4.7, Eos % (Auto) 3.0, Baso % (Auto) 2.9 H, Neut # (Auto) 4.8, Lymph # (Auto) 3.1, Gordon # (Auto) 0.4, Eos # (Auto) 0.3, Baso # (Auto) 0.3 H 06/20/
[2021-06-21 11:42] LABS: Troponin I < 0.01 ng/ml (0.00-0.034)
[2021-06-21 11:51] LABS: POC Glucose,Bedside 102 (70-110)
[2021-06-21 17:06] LABS: POC Glucose,Bedside 159 (70-110)
[2021-06-22] VITALS: BP 131/70; PULSE 80; RESP 16; TEMP 36.6; O2SAT 90
[2021-06-22 03:17] VITALS: BP 147/63; PULSE 78; RESP 20; TEMP 36.6; O2SAT 97
[2021-06-22 05:43] LABS: POC Glucose,Bedside 154 (70-110)
[2021-06-22 05:43] LABS: POC Glucose,Bedside 134 (70-110)
[2021-06-22 05:44] LABS: Basophils # 0.1 K/mm3 (0-0.2); Basophils % 1.5 % (0.1-2.0); Eosinophils # 0.3 K/mm3 (0.0-0.4); Eosinophils % 3.3 % (0.1-12.0); Hematocrit 42.7 % (37.0-47.0); Hemoglobin 13.7 g/dL (12.2-16.2); Lymphocytes # 3.4 K/mm3 (0.7-4.5); Lymphocytes % 35.3 % (10-50); Mean Corpuscular HGB Conc 32.2 g/dL (31.8-35.4); Mean Corpuscular Hemoglobin 30.9 pg (27.0-31.2); Mean Corpuscular Volume 95.9 fl (81-99); Mean Platelet Volume 9.6 fl (7.4-10.4); Monocytes # 0.5 K/mm3 (0.1-1.0); Monocytes % 5.4 % (1.7-9.3); Neutrophils # 5.2 K/mm3 (1.8-7.8); Neutrophils % 54.5 % (37.0-80.0); Platelet Count 289 K/mm3 (142-424); Red Blood Count 4.45 M/mm3 (4.20-5.40); White Blood Count 9.5 K/mm3 (4.8-10.8)
[2021-06-22 05:49] LABS: Chloride 101 mmol/L (98-107); Potassium 3.6 mmoL/L (3.5-5.1); Sodium 136 mmol/L (136-145)
[2021-06-22 05:52] LABS: Anion Gap 9.6 mEq/L (5-15); Blood Urea Nitrogen 18 mg/dl (7-17); Carbon Dioxide 29 mmol/L (22.0-30.0); Chol/HDL Ratio 5.3 (1-3.5); Cholesterol 169 mg/dl (140-200); Creatinine Clearance Estimated 84 mL/min (50-200); Estimated Glomerular Filt Rate 50 ml/min (>60); GFR (African American) 60 ML/MIN (>60); HDL Cholesterol 32 mg/dl (40-60); Triglycerides 222 mg/dl (30-150); VLDL Cholesterol 44 mg/dL (0-40)
[2021-06-22 05:53] LABS: Calcium 7.9 mg/dl (8.4-10.2); Glucose 123 mg/dl (74-100)
[2021-06-22 06:03] LABS: Direct LDL Cholesterol 106.71 mg/dL (100-129)
--- NOTE | 2021-06-22 06:32 | PC.NURSE ---
Pt has not slept much this shift. Pt has c/o of pain in right knee x2, medicated per MAR with relief. Pt's right radial cath site is C/D/I. Pt has voiced no c/o of SOA or chest pain. Remains on room air with O2 sats >90%.
[2021-06-22 08:00] VITALS: BP 151/72; PULSE 85; RESP 18; TEMP 36.6; O2SAT 94
--- NOTE | 2021-06-22 10:52 | HMH.PNCARD ---
Subjective Date: 06/22/21 Time: 10:30 Principal diagnosis: diastolic dysfunction, elevated LVEDP Interval history: This is a 66-year-old white female who presented to the emergency department with chest pain and shortness of breath. The patient was felt to have unstable angina and underwent left cardiac catheterization yesterday which showed normal coronary arteries and is severe to critically elevated LVEDP at 45 mmHg. The patient needs aggressive treatment of severe diastolic dysfunction. She was given IV diuresis and states that she feels so much better today. Her shortness of breath has improved. She denies edema. She denies any chest pain or pressure. She denies any fever, chills, nausea, vomiting, diarrhea, PND or orthopnea. She states that she still has some mild shortness of breath with exertion but it has significantly improved. Exam Vital signs and Labs for Last 24 Hours: Temp Pulse Resp BP Pulse Ox 97.8 F 85 18 151/72 H 94 L 06/22/21 08:00 06/22/21 08:00 06/22/21 08:00 06/22/21 08:00 06/22/21 08:00 Laboratory Results - last 24 hr 06/21/21 10:59: Troponin I < 0.01 06/21/21 11:23: POC Glucose 102 06/21/21 16:58: POC Glucose 159 H 06/21/21 20:18: POC Glucose 154 H 06/22/21 05:32: POC Glucose 134 H 06/22/21 05:33: Triglycerides 222 H, Cholesterol 169, LDL Cholesterol Direct 106.71, VLDL Cholesterol 44 H, HDL Cholesterol 32 L, Cholesterol/HDL Ratio 5.3 H 06/22/21 05:33: WBC 9.5 D, RBC 4.45, Hgb 13.7, Hct 42.7, MCV 95.9, MCH 30.9, MCHC 32.2, RDW 14.0, Plt Count 289, MPV 9.6, Neut % (Auto) 54.5, Lymph % (Auto) 35.3, Ballard % (Auto) 5.4, Eos % (Auto) 3.3, Baso % (Auto) 1.5, Neut # (Auto) 5.2, Lymph # (Auto) 3.4, Ballard # (Auto) 0.5, Eos # (Auto) 0.3, Baso # (Auto) 0.1 06/22/21 05:33: Sodium 136, Potassium 3.6, Chloride 101, Carbon Dioxide 29, Anion Gap 9.6, BUN 18 H, Creatinine 1.10 H, Estimated Creat Clear 84, Estimated GFR 50 L, Est GFR ( Amer) 60, Glucose 123 H, Calcium 7.9 L I & O for Last 24 hours: Intake & Output 06/19/21 06/20/21 06/21/21 06/22/21 23:59 23:59 23:59 23:59 Intake Total 1386 / 1386 462 / 462 Output Total 1500 / 1500 1300 / 1300 Balance -114 / -114 -838 / -838 Weight 219 lb 233 lb 8 oz Narrative: Echo shows: 1. Mild biatrial enlargement, normal left ventricular size, mild concentric left ventricular hypertrophy, estimated ejection fraction 55% with no regional wall motion abnormality, grade 1 diastolic dysfunction seen with tissue Doppler evidence of raise left atrial pressure. 2. Mildly enlarged right ventricle with normal contractility. 3. Trace mitral and tricuspid regurgitation. 4. No significant pericardial effusion. 5. Inferior vena cava is normal size with normal inspiratory collapse. - Constitutional no acute distress, obese - *Routine HEENT Exam Head: Present: normocephalic, atraumatic Eye: Present: EOMI, PERRL ENT: Present: mucous membranes moist - *Routine Neck Exam Present: supple, full ROM, normal carotid upstroke. Absent: JVD, carotid bruit, lymphadenopathy - *Routine Respiratory Exam Present: CTA bilaterally - *Routine Cardiovascular Exam Present: RRR, Normal S1, Normal S2. Absent: murmur - *Routine Abdominal Exam Present: soft, normoactive bowel sounds. Absent: tenderness, distended - *Routine Extremities Exam Present: full ROM, pulses intact, normal capillary refill. Absent: cyanosis, clubbing, edema - *Routine Skin Exam Present: intact, warm. Absent: erythema, rash - *Routine Neurological Exam Present: alert, oriented X3, CN II-XII intact. Absent: sensory deficit, motor deficit Progress Note: A&P (1) Elevated left ventricular end-diastolic pressure (LVEDP) Status: Acute (2) Diastolic dysfunction Status: Acute (3) Shortness of breath Status: Acute (4) Diabetes mellitus Status: Acute (5) HLD (hyperlipidemia) Status: Chronic (6) Obesity (BMI 30-39.9) Status: Chronic (7) HTN (hypert
--- NOTE | 2021-06-22 11:31 | CARE MANAGER ---
Patient requested forearm crutches for home use, chose [facility] order and demograhic information was faxed. Rose from [facility] states that they will deliver to the hospital today.
[2021-06-22 11:33] LABS: POC Glucose,Bedside 164 (70-110)
--- NOTE | 2021-06-22 12:01 | HMH.DCSUM ---
General - General Admission date:: 06/21/21 Discharge date: 06/22/21 HPI HPI: 66-year-old female patient into [facility] emergency department for reports of left-sided chest pain. She reports she was walking behind her family as they were carrying in groceries from the car to the house, she reports sitting on porch and having left-sided chest pain that was sharp/stabbing. She denies radiation, rates pain 10 out of 10 at that time and states that she was short of breath, nauseated, and very sweaty. She reports that she sat there pain slowly decreased to 8 out of 10 when she came to the emergency department. This morning she rates pain still at 8 out of 10 and denies any radiation. She denies fever/chills/body aches, no further nausea after last night and denies vomiting/diarrhea. Hospital Course Hospital Course: Abnormal Lab Results 06/21/21 16:58: POC Glucose 159 H 06/21/21 20:18: POC Glucose 154 H 06/22/21 05:32: POC Glucose 134 H 06/22/21 05:33: Triglycerides 222 H, VLDL Cholesterol 44 H, HDL Cholesterol 32 L, Cholesterol/HDL Ratio 5.3 H 06/22/21 05:33: BUN 18 H, Creatinine 1.10 H, Estimated GFR 50 L, Glucose 123 H, Calcium 7.9 L 06/22/21 11:26: POC Glucose 164 H Discharge Plan (1) CHF due to Elevated left ventricular end-diastolic pressure (LVEDP)-critically elevated LVEDP at 45 mmHg. The patient was given IV diuresis overnight she states her shortness of breath is significantly improved. We will switch her over to oral Lasix 80 mg daily and Aldactone 50 mg daily for diuresis for out pt. (2) Diastolic dysfunction-Echocardiogram shows a normal ejection fraction with no significant valvular disease with grade 1 diastolic dysfunction.fluid restriction of 1.5 to 2 L/day and salt restrictions (3) Shortness of breath due to CHF-Echocardiogram shows a normal ejection fraction with no significant valvular disease with grade 1 diastolic dysfunction.fluid restriction of 1.5 to 2 L/day. oral Lasix 80 mg daily and Aldactone 50 mg daily for diuresis (4) Diabetes mellitus- continue diet and meds, follow up with pcp (5) HLD (hyperlipidemia)-LDL goal is less than 100. Her LDL is 106 and close to goal. (6) Obesity (BMI 30-39.9)- low fat/carb/calorie diet and exercise plan. Recommend weight loss (7) HTN (hypertension)-blood pressure is elevated this morning.Increase her Norvasc to 10 mg p.o. daily for better blood pressure control. Continue Toprol-XL. (8) Abnormal [id number] in cardiology clinic in 1 to 2 weeks on an outpatient basis with a BMP prior to her appointment. (9) Somnolence-Pt alert and oriented x3 today (10) Normal coronary arteries-medication mangement per cardiology, follow up in 1 week Cardiology consult: Assessment and Plan for All Diagnoses:: Plan: 1. This is a 66-year-old female who presented to the emergency department complaints of chest pain. She underwent left cardiac catheterization yesterday and was found to have normal coronary arteries. 2. The patient did have a severe to critically elevated LVEDP at 45 mmHg. The patient was given IV diuresis overnight last night she states her shortness of breath is significantly improved. We will switch her over to oral Lasix 80 mg daily and Aldactone 50 mg daily for diuresis. 3. The patient does need to be on a fluid restriction of 1.5 to 2 L/day. We have discussed fluid restrictions with the patient. 4. Echocardiogram shows a normal ejection fraction with no significant valvular disease. She does have grade 1 diastolic dysfunction. 5. Her blood pressure is elevated this morning. We will increase her Norvasc to 10 mg p.o. daily for better blood pressure control. Continue Toprol-XL. 6. Her LDL goal is less than 100. Her LDL is 106 and close to goal. 7. The patient does take Xarelto 10 mg daily. It is unclear why she is on this medication and the patient cannot give me an explanation for why she takes this medication. 8. No f
--- NOTE | 2021-06-25 15:39 | CARE MANAGER ---
Contacted patient related to discharge from hospital. Sates she doesn't feel the best, but it is not related to what caused her to come to the hospital. Discussed medications and follow up appointments. She denies questions or concerns. Transferred to [facility] primary care to change time of visit. BRYCE Loredo
== END 2021-06-22 13:17 | disposition home or self-care (01) ==
LOC: ER 22:39 → ICU 06-21 01:18
PROVIDERS: Emergency Medicine; Internal Medicine; Nurse Practitioner Family; Admitting Provider Internal Medicine Adolescent Medicine; Emergency Provider Emergency Medicine; PCP Emergency Medicine; Visit Provider Emergency Medicine
DX: R07.9 Chest pain, unspecified (principal); I25.110 Atherosclerotic heart disease of native coronary artery with unstable angina pectoris; I11.0 Hypertensive heart disease with heart failure; K21.9 Gastro-esophageal reflux disease without esophagitis; G43.909 Migraine, unspecified, not intractable, without status migrainosus; E78.5 Hyperlipidemia, unspecified; E11.9 Type 2 diabetes mellitus without complications; E03.9 Hypothyroidism, unspecified; Z87.891 Personal history of nicotine dependence; Z79.899 Other long term (current) drug therapy; R94.31 Abnormal electrocardiogram [ECG] [EKG]; I50.31 Acute diastolic (congestive) heart failure; Z20.822 Contact with and (suspected) exposure to COVID-19
CPT/HCPCS: G0378; 36415; 51702; 70450; 71045; 71275; 80048; 80053; 80061; 81001; 82803; 82962; 83690; 83880; 84484; 85025; 85378; 93005; 93306; 93458; 99152; 99285; C1725; C1769; C9803; J1644; Q9967; U0003; U0005

== ENCOUNTER 2021-11-09 22:49 | Emergency (ER) | payer MEDICARE, MEDICAID, SELFPAY ==
[2021-11-09 22:49] VITALS: BP 161/83; PULSE 78; RESP 22; TEMP 36.7; O2SAT 96; BMI 37.4
[2021-11-09 23:04] VITALS: BMI 37.4
--- NOTE | 2021-11-09 23:05 | CT_ITS ---
PROCEDURE INFORMATION: Exam: CT Abdomen And Pelvis With Contrast Exam date and time: 11/09/2021 11:58 PM Age: 66 years old Clinical indication: Abdominal pain; Generalized; Prior surgery; Surgery date: 6+ months; Surgery type: Hysterectomy; Additional info: Fall, rib pain, dyspnea TECHNIQUE: Imaging protocol: Computed tomography of the abdomen and pelvis with contrast. Radiation optimization: All CT scans at this facility use at least one of these dose optimization techniques: automated exposure control; mA and/or kV adjustment per patient size (includes targeted exams where dose is matched to clinical indication); or iterative reconstruction. Contrast material: ISOVUE; Contrast volume: 75 ml; Contrast route: IV; COMPARISON: CR XR PELVIS 1-2V 11/09/2021 11:42 PM FINDINGS: Lungs: The lung bases are clear. No pleural effusion. Liver: There is diffuse low-attenuation of the liver consistent with fatty infiltration. No discrete hepatic mass. No abnormal perihepatic fluid. Gallbladder and bile ducts: Unremarkable. No calcified stones. No ductal dilation. Pancreas: Unremarkable. Spleen: Unremarkable spleen. No abnormal perisplenic fluid. Adrenal glands: Unremarkable. Kidneys and ureters: There is a nonobstructing 4 mm right renal stone. No hydronephrosis or renal mass. Stomach and bowel: Small and large bowel caliber is normal. No bowel wall thickening. No obstruction. No significant colonic diverticulosis. Appendix: No evidence of appendicitis. Intraperitoneal space: No free fluid or free air. Retroperitoneal space: No bulky lymphadenopathy. Vasculature: Unremarkable. No abdominal aortic aneurysm. Lymph nodes: Unremarkable. No enlarged lymph nodes. Urinary bladder: Unremarkable as visualized. Reproductive: Status post hysterectomy. Bones/joints: No acute osseous abnormality. No fracture identified. Severe degenerative disc disease L5-S1 with evidence of laminectomy. Moderate disc space narrowing L4-L5 with facet joint arthropathy contributing to central canal stenosis. Soft tissues: Unremarkable. IMPRESSION: 1. No acute findings. 2. Hepatic steatosis. 3. Nonobstructing 4 mm right renal stone. 4. Status post hysterectomy.
--- NOTE | 2021-11-09 23:05 | CT_ITS ---
The PROCEDURE INFORMATION: Exam: CT Chest Without Contrast; Diagnostic Exam date and time: 11/09/2021 11:55 PM Age: 66 years old Clinical indication: Injury or trauma; Fall; Additional info: Fall, left rib pain, dyspnea TECHNIQUE: Imaging protocol: Diagnostic computed tomography of the chest without contrast. Radiation optimization: All CT scans at this facility use at least one of these dose optimization techniques: automated exposure control; mA and/or kV adjustment per patient size (includes targeted exams where dose is matched to clinical indication); or iterative reconstruction. COMPARISON: CT ANGIO CHEST PE PROTOCOL 06/20/2021 10:29 PM FINDINGS: Lungs: No focal consolidation or mass. There is a 5 mm calcified granuloma of the lingula. Pleural spaces: No pleural effusion or pneumothorax. Heart: Heart size is normal. No pericardial effusion. Lymph nodes: Multiple calcified left hilar lymph nodes. No lymphadenopathy. Vasculature: Thoracic aorta is normal in caliber. Bones/joints: No fracture identified. Soft tissues: Unremarkable. IMPRESSION: 1. No acute findings. 2. Evidence of old granulomatous disease.
--- NOTE | 2021-11-09 23:05 | XR_ITS ---
PROCEDURE INFORMATION: Exam: XR Pelvis Exam date and time: 11/09/2021 11:42 PM Age: 66 years old Clinical indication: Injury or trauma; Fall; Blunt trauma (contusions or hematomas); Bilateral; Pelvic region TECHNIQUE: Imaging protocol: Radiologic exam of the pelvis. Views: 1 or 2 view. COMPARISON: CR XR HIP LT 2-3V W/PELVIS 01/06/2019 2:21 PM FINDINGS: Bones/joints: Unremarkable. No acute fracture. Soft tissues: Unremarkable. IMPRESSION: No acute findings.
--- NOTE | 2021-11-09 23:05 | XR_ITS ---
PROCEDURE INFORMATION: Exam: XR Chest Exam date and time: 11/09/2021 11:43 PM Age: 66 years old Clinical indication: Injury or trauma; Fall; Blunt trauma (contusions or hematomas); Patient HX: Left ribs hurt TECHNIQUE: Imaging protocol: Radiologic exam of the chest. Views: 4 or more views. COMPARISON: CR XR CHEST PORTABLE 06/20/2021 6:23 PM FINDINGS: Lungs: No focal consolidation or mass. There is a 5 mm calcified granuloma of the lingula. Pleural spaces: No pleural effusion or pneumothorax. The Heart/Mediastinum: Unremarkable. No cardiomegaly. There are calcified left hilar lymph nodes. Bones/joints: No fracture identified. Osteoarthritis of the left glenohumeral joint. IMPRESSION: 1. No acute intrathoracic abnormality. 2. Evidence of old granulomatous disease.
--- NOTE | 2021-11-09 23:21 | ECG_ITS ---
APPROVED REPORT Exam: Resting ECG HR:77 bpm ECG Measurements Heart Rate 77 AXES MN 141 P -37 QRSd 90 QRS -49 QT 405 T 24 QTc 437 Conclusion SINUS RHYTHM LEFT AXIS DEVIATION [QRS AXIS < -30] ABNORMAL ECG UNCONFIRMED REPORT Electronically signed by : Bennett Thomas MD 11/11/2021 15:25:42
[2021-11-09 23:22] LABS: Basophils # 0.2 K/mm3 (0-0.2); Basophils % 1.6 % (0.1-2.0); Eosinophils # 0.4 K/mm3 (0.0-0.4); Eosinophils % 3.7 % (0.1-12.0); Hematocrit 44.2 % (37.0-47.0); Hemoglobin 14.3 g/dL (12.2-16.2); Lymphocytes # 3.6 K/mm3 (0.7-4.5); Lymphocytes % 33.2 % (10-50); Mean Corpuscular HGB Conc 32.3 g/dL (31.8-35.4); Mean Corpuscular Hemoglobin 30.5 pg (27.0-31.2); Mean Corpuscular Volume 94.5 fl (81-99); Mean Platelet Volume 9.8 fl (7.4-10.4); Monocytes # 0.5 K/mm3 (0.1-1.0); Monocytes % 4.4 % (1.7-9.3); Neutrophils # 6.1 K/mm3 (1.8-7.8); Neutrophils % 57.1 % (37.0-80.0); Platelet Count 396 K/mm3 (142-424); Red Blood Count 4.68 M/mm3 (4.20-5.40); Red Cell Distribution Width 14.1 % (11.5-17.5); White Blood Count 10.8 K/mm3 (4.8-10.8)
[2021-11-09 23:31] VITALS: BP 172/80; PULSE 68; O2SAT 93
[2021-11-09 23:31] LABS: Alanine Aminotransferase 27 U/L (12-78); Alkaline Phosphatase 91 U/L (38-126); Amylase 59 U/L (30-110); Anion Gap 10.7 mEq/L (5-15); Aspartate Amino Transferase 30 U/L (14-36); Blood Urea Nitrogen 12 mg/dl (7-17); Calcium 8.6 mg/dl (8.4-10.2); Carbon Dioxide 25 mmol/L (22.0-30.0); Chloride 106 mmol/L (98-107); Creatinine Clearance Estimated 89 mL/min (50-200); Estimated Glomerular Filt Rate 84 ml/min (>60); GFR (African American) 101 ML/MIN (>60); Glucose 234 mg/dl (74-100); Lipase 74 U/L (23-300); Potassium 3.7 mmoL/L (3.5-5.1); Sodium 138 mmol/L (136-145); Total Protein,Serum 6.8 g/dl (6.3-8.2)
[2021-11-09 23:36] LABS: Bilirubin,Indirect 0.1 mg/dL (0.0-0.9); Bilirubin,Total < 0.1 mg/dl (0.2-1.3)
[2021-11-09 23:37] LABS: C-Reactive Protein 16.8 mg/L (0-4)
[2021-11-09 23:50] LABS: Procalcitonin 0.066 ng/mL (0.0-2.0)
--- NOTE | 2021-11-09 23:50 | PC.NURSE ---
Pt gone to RAD
[2021-11-10] VITALS (10 sets, daily range): BP systolic 153–183; BP diastolic 70–81; PULSE 63–74; RESP 18; TEMP 36.7; O2SAT 93–96
[2021-11-10] LABS: Troponin I < 0.01 ng/ml (0.00-0.034)
[2021-11-10 00:09] LABS: Erythrocyte Sedimentation Rate 41 mm/hr (0-30)
--- NOTE | 2021-11-10 00:09 | PC.NURSE ---
Pt back from RAD
[2021-11-10 01:43] LABS: NT Pro Brain Natriuretic Pep. 1400 pg/mL (0-125)
--- NOTE | 2021-11-10 02:00 | PC.NURSE ---
MD at bedside, this RN at bedside as well.
--- NOTE | 2021-11-10 02:20 | PC.NURSE ---
Pt given drink and crackers per request
[2021-11-10 02:47] LABS: Troponin I < 0.01 ng/ml (0.00-0.034)
--- NOTE | 2021-11-10 03:33 | PC.NURSE ---
Pt resting in bed watching tv. No needs or complaints voiced. Call light within reach.
--- NOTE | 2021-11-10 03:59 | HMH.EDGENADL ---
Discharge Plan Disposition Patient Disposition: Home, Self-Care Chief Complaint: PAIN Prescriptions Prescriptions: No Action cetirizine 10 mg tablet 10 mg PO DAILY Qty: 90 1RF hydrocodone-acetaminophen 5-325 mg tablet 1 tab PO Q6H PRN (Reason: pain) Qty: 120 0RF gabapentin 600 mg tablet 600 mg PO TID Qty: 90 2RF hydroxyzine pamoate [Vistaril] 25 mg capsule 25 mg PO TID PRN (Reason: itching) Qty: 60 0RF trazodone 150 MG tablet 150 mg PO HS pantoprazole 40 MG tablet,delayed release (DR/EC) 40 mg PO DAILY spironolactone 25 MG tablet 50 mg PO DAILY furosemide 80 MG tablet 80 mg PO DAILY amlodipine 10 MG tablet 10 mg PO DAILY ferrous sulfate 325 mg (65 mg iron) tablet 325 mg PO DAILY metoprolol succinate 25 MG tablet extended release 24 hr 25 mg PO DAILY fluticasone propionate [Flonase Allergy Relief] 50 mcg/actuation spray,suspension 1 spray NS DAILY Rx Instructions: administer into each nostril fluticasone propionate 120 PUFFS HFA aerosol inhaler 1 puffs IH BID Vraylar 1.5 mg capsule 1.5 mg PO DAILY Referrals Follow up/Referrals: Jarvis Charlton MD [Primary Care Provider] - See instructions Clinical Impressions Clinical Impression: Contusion of rib on left side Instructions Patient Instructions: DI for Rib Contusion Discharge ED Provider: Jarvis Charlton General Adult HPI General Chief complaint: PAIN Stated complaint: Rib pain Time Seen by Provider: 11/09/21 23:30 Mode of Arrival: EMS Source of Information: Patient and EMS Limitations: Physical Limitations Description of Symptoms (Recalled from ER Triage Doc. by RN): Pt c/o rib pain and dyspnea on inspiration that began today after she woke up. States she fell into a doorway 2 wk ago and was not evaluated by a MD. States I was starting to feel better andwas doing ok . Denies fever, chills, or n/v/d. History of Present Illness HPI narrative: fell about 2 weeks ago now with pain and feeling of sob Onset (ago): day(s) Location: chest and abdomen Severity: moderate Quality: stabbing Consistency: intermittent Associated symptoms: denies other symptoms Related Data Home Medications Medication Instructions Recorded Confirmed pantoprazole 40 mg tablet,delayed 40 mg PO DAILY acid reflux 06/21/21 11/10/21 release trazodone 150 mg tablet 150 mg PO HS Insomnia 06/21/21 11/10/21 amlodipine 10 mg tablet 10 mg PO DAILY High blood pressure 11/10/21 11/10/21 cariprazine 1.5 mg capsule 1.5 mg PO DAILY . 11/10/21 11/10/21 (Vraylar) ferrous sulfate 325 mg (65 mg 325 mg PO DAILY Supplement 11/10/21 11/10/21 iron) tablet fluticasone propionate 110 1 puffs inhalation BID COPD 11/10/21 11/10/21 mcg/actuation HFA aerosol inhaler fluticasone propionate 50 1 spray intranasal DAILY Allergy 11/10/21 11/10/21 mcg/actuation nasal symptoms spray,suspension (Flonase Allergy Relief) furosemide 80 mg tablet 80 mg PO DAILY fluid overload 11/10/21 11/10/21 metoprolol succinate 25 mg 25 mg PO DAILY High blood pressure 11/10/21 11/10/21 tablet,extended release 24 hr spironolactone 25 mg tablet 50 mg PO DAILY High blood pressure 11/10/21 11/10/21 Previous Rx's Medication Instructions Recorded cetirizine 10 mg tablet 10 mg PO DAILY allergies #90 tabs 08/14/21 gabapentin 600 mg tablet 600 mg PO TID Pain #90 tabs 10/17/21 hydrocodone 5 mg-acetaminophen 325 1 tab PO Q6H PRN pain #120 tabs 10/17/21 mg tablet hydroxyzine pamoate 25 mg capsule 25 mg PO TID PRN itching #60 caps 10/17/21 (Vistaril) Allergies Allergy/AdvReac Type Severity Reaction Status Date / Time No Known Allergies Allergy Verified 10/17/21 13:09 [facility] Medical History (Updated 11/10/21 @ 07:05 by Jarvis Charlton MD) Back Pain Bilateral knee pain Chest pain Diabetes 1.5, managed as type 2 Dyspnea Encounter for pre-operative cardiovascular clearance Ex-smoker Family h
--- NOTE | 2021-11-10 04:28 | PC.NURSE ---
Pt ambulatory to bathroom with minimal assistance
--- NOTE | 2021-11-10 05:01 | PC.NURSE ---
Pt reports no way home at this time. aware. Will continue to monitor pt at this time.
--- NOTE | 2021-11-10 05:20 | PC.NURSE ---
Patient is currently resting in bed.Breakfast order placed for patient.
== END 2021-11-10 07:53 | disposition home or self-care (01) ==
PROVIDERS: Emergency Provider Emergency Medicine; PCP Emergency Medicine
DX: R07.9 Chest pain, unspecified (principal); R06.02 Shortness of breath; E87.70 Fluid overload, unspecified; I10 Essential (primary) hypertension; K21.9 Gastro-esophageal reflux disease without esophagitis; E11.9 Type 2 diabetes mellitus without complications; M54.9 Dorsalgia, unspecified; G47.00 Insomnia, unspecified; Z79.51 Long term (current) use of inhaled steroids; Z79.1 Long term (current) use of non-steroidal anti-inflammatories (NSAID); Z79.899 Other long term (current) drug therapy; Z87.891 Personal history of nicotine dependence; Z82.49 Family history of ischemic heart disease and other diseases of the circulatory system
CPT/HCPCS: 71045; 71250; 72170; 74177; 80048; 80076; 82150; 83690; 83880; 84145; 84484; 85025; 85651; 86140; 93005; 96374; 96375; 99285; Q9967

== ENCOUNTER 2022-01-07 12:07 | Emergency (ER) | payer MEDICARE, MEDICAID, SELFPAY ==
[2022-01-07] VITALS (9 sets, daily range): BP systolic 145–197; BP diastolic 66–89; PULSE 74–81; RESP 18–21; TEMP 36.7–36.8; O2SAT 95–98; BMI 36.4
--- NOTE | 2022-01-07 12:15 | ECG_ITS ---
APPROVED REPORT Exam: Resting ECG HR:74 bpm ECG Measurements Heart Rate 74 AXES SC 138 P -16 QRSd 98 QRS -40 QT 218 T 85 QTc 245 Conclusion SINUS RHYTHM LEFT AXIS DEVIATION [QRS AXIS < -30] POSSIBLE ANTERIOR MYOCARDIAL INFARCTION , OF INDETERMINATE AGE [30 ms Q WAVE IN V3/V4, OR R < 0.2 mV IN V4] ABNORMAL ECG UNCONFIRMED REPORT Electronically signed by : Bennett Thomas MD 01/07/2022 21:39:02
--- NOTE | 2022-01-07 12:16 | XR_ITS ---
FINAL REPORT TECHNIQUE: Single view chest CLINICAL HISTORY: SHORTHNESS OF BREATH CHEST PAIN COMPARISON: 11/10/2021 FINDINGS: A single view of the chest was obtained. The heart and mediastinum are within normal limits. The lungs are clear. There is no pneumothorax. Osseous structures are unremarkable. IMPRESSION: No acute cardiopulmonary process. Reviewed, Interpreted and Dictated by Abel Mccall MD Transcribed by Galina Hale Authenticated and . [facility]
--- NOTE | 2022-01-07 12:21 | HMH.EDGENADL ---
Discharge Plan Disposition Patient Disposition: Home, Self-Care Condition: Good Chief Complaint: Shortness of Breath/Dyspnea Prescriptions Prescriptions: No Action cetirizine 10 mg tablet 10 mg PO DAILY Qty: 90 1RF gabapentin 600 mg tablet 600 mg PO TID Qty: 90 2RF hydroxyzine pamoate [Vistaril] 25 mg capsule 25 mg PO TID PRN (Reason: itching) Qty: 60 0RF hydrocodone-acetaminophen 5-325 mg tablet 1 tab PO Q6H PRN (Reason: pain) Qty: 120 0RF pantoprazole 40 mg tablet,delayed release (DR/EC) 40 mg PO DAILY Qty: 90 1RF trazodone 150 mg tablet See Rx Instructions .ROUTE .COMPLEX Qty: 90 0RF Dose Instruction: TAKE ONE TABLET BY MOUTH AT BEDTIME NEEDED FOR INSOMNIA Rx Instructions: TAKE ONE TABLET BY MOUTH AT BEDTIME NEEDED FOR INSOMNIA spironolactone 25 MG tablet 50 mg PO DAILY furosemide 80 MG tablet 80 mg PO DAILY amlodipine 10 MG tablet 10 mg PO DAILY ferrous sulfate 325 mg (65 mg iron) tablet 325 mg PO DAILY metoprolol succinate 25 MG tablet extended release 24 hr 25 mg PO DAILY fluticasone propionate [Flonase Allergy Relief] 50 mcg/actuation spray,suspension 1 spray NS DAILY Rx Instructions: administer into each nostril fluticasone propionate 120 PUFFS HFA aerosol inhaler 1 puffs IH BID Vraylar 1.5 mg capsule 1.5 mg PO DAILY Referrals Follow up/Referrals: Jarvis Charlton MD [Primary Care Provider] - See instructions Clinical Impressions Clinical Impression: Chest pain Instructions Patient Instructions: DI for Chest Pain Discharge ED Provider: Colten Oro General Adult HPI General Chief complaint: Shortness of Breath/Dyspnea Stated complaint: SOA Time Seen by Provider: 01/07/22 12:13 Mode of Arrival: EMS Limitations: No Limitations Description of Symptoms (Recalled from ER Triage Doc. by RN): PT BROUGHT IN VIA EMS FOR SHORTNESS OF BREATH, CHEST PAIN. EMS REPORTS PT VERY ANXIOUS AND TEARFUL. PT REPORTS ANXIETY, UNDER STRESS FINANCIALLY, UNABLE TO GET RX FILLED History of Present Illness HPI narrative: 66-year-old female, history of unstable angina, type 2 diabetes, hypertension, states last cardiac work-up was several years ago, brought in by EMS for complaints of shortness of breath, chest pain, states started this a.m., also anxious with this. Denies any nausea, vomiting, diaphoresis. Pain rated as moderate in nature, radiates all across the left side of the chest, no radiation to the neck or jaw or upper extremities, not really exertional in nature and started at rest. She denies any treatments prior to arrival Related Data Home Medications Medication Instructions Recorded Confirmed amlodipine 10 mg tablet 10 mg PO DAILY High blood pressure 11/10/21 12/14/21 cariprazine 1.5 mg capsule 1.5 mg PO DAILY . 11/10/21 12/14/21 (Vraylar) ferrous sulfate 325 mg (65 mg 325 mg PO DAILY Supplement 11/10/21 12/14/21 iron) tablet fluticasone propionate 110 1 puffs inhalation BID COPD 11/10/21 12/14/21 mcg/actuation HFA aerosol inhaler fluticasone propionate 50 1 spray intranasal DAILY Allergy 11/10/21 12/14/21 mcg/actuation nasal symptoms spray,suspension (Flonase Allergy Relief) furosemide 80 mg tablet 80 mg PO DAILY fluid overload 11/10/21 12/14/21 metoprolol succinate 25 mg 25 mg PO DAILY High blood pressure 11/10/21 12/14/21 tablet,extended release 24 hr spironolactone 25 mg tablet 50 mg PO DAILY High blood pressure 11/10/21 12/14/21 Previous Rx's Medication Instructions Recorded cetirizine 10 mg tablet 10 mg PO DAILY allergies #90 tabs 08/14/21 gabapentin 600 mg tablet 600 mg PO TID Pain #90 tabs 10/17/21 hydroxyzine pamoate 25 mg capsule 25 mg PO TID PRN itching #60 caps 10/17/21 (Vistaril) trazodone 150 mg tablet See Rx Instructions .Route 11/13/21 .COMPLEX #90 tabs hydrocodone 5 mg-acetaminophen 325 1 tab PO Q6H PRN pain #120 tabs 12/14/21 mg tablet panto
[2022-01-07 12:25] LABS: Basophils # 0.2 K/mm3 (0-0.2); Basophils % 1.4 % (0.1-2.0); Eosinophils # 0.3 K/mm3 (0.0-0.4); Eosinophils % 2.3 % (0.1-12.0); Hematocrit 44.3 % (37.0-47.0); Hemoglobin 14.3 g/dL (12.2-16.2); Lymphocytes # 4.5 K/mm3 (0.7-4.5); Lymphocytes % 33.1 % (10-50); Mean Corpuscular HGB Conc 32.4 g/dL (31.8-35.4); Mean Corpuscular Hemoglobin 30.9 pg (27.0-31.2); Mean Corpuscular Volume 95.6 fl (81-99); Monocytes # 0.6 K/mm3 (0.1-1.0); Monocytes % 4.4 % (1.7-9.3); Neutrophils % 58.7 % (37.0-80.0); Platelet Count 396 K/mm3 (142-424); Red Blood Count 4.64 M/mm3 (4.20-5.40); Red Cell Distribution Width 13.6 % (11.5-17.5); White Blood Count 13.6 K/mm3 (4.8-10.8)
[2022-01-07 12:33] LABS: Anion Gap 15.4 mEq/L (5-15); Blood Urea Nitrogen 15 mg/dl (7-17); Calcium 9.5 mg/dl (8.4-10.2); Carbon Dioxide 33 mmol/L (22.0-30.0); Chloride 99 mmol/L (98-107); Creatinine Clearance Estimated 87 mL/min (50-200); Estimated Glomerular Filt Rate 72 ml/min (>60); GFR (African American) 87 ML/MIN (>60); Glucose 120 mg/dl (74-100); Potassium 3.4 mmoL/L (3.5-5.1); Sodium 144 mmol/L (136-145)
--- NOTE | 2022-01-07 12:42 | PC.NURSE ---
ED MD AT BEDSIDE FOR EVALUATION
[2022-01-07 12:47] LABS: Troponin I < 0.01 ng/ml (0.00-0.034)
--- NOTE | 2022-01-07 13:22 | PC.NURSE ---
PT MEDICATED AT THIS TIME PER EMAR, CALL LIGHT WITHIN REACH, NO NEEDS AT THIS TIME
--- NOTE | 2022-01-07 14:00 | PC.NURSE ---
PT ASSISTED TO BR AND GIVEN WARM BLANKET. CALL LIGHT WITHIN REACH
--- NOTE | 2022-01-07 14:45 | PC.NURSE ---
2nd trop drawn by Daniel sent to lab and pt updated on POC. No new needs at this time
--- NOTE | 2022-01-07 14:58 | PC.NURSE ---
ROUNDED ON PT, PT TALKING ON PHONE. NO NEEDS AT THIS TIME
[2022-01-07 15:30] LABS: Troponin I < 0.01 ng/ml (0.00-0.034)
== END 2022-01-07 16:00 | disposition home or self-care (01) ==
PROVIDERS: Emergency Provider Emergency Medicine; PCP Emergency Medicine
DX: R07.9 Chest pain, unspecified (principal); Z79.899 Other long term (current) drug therapy; E11.9 Type 2 diabetes mellitus without complications; I10 Essential (primary) hypertension; J44.9 Chronic obstructive pulmonary disease, unspecified; F41.9 Anxiety disorder, unspecified; G47.33 Obstructive sleep apnea (adult) (pediatric)
CPT/HCPCS: 71045; 80048; 84484; 85025; 93005; 99284

== ENCOUNTER 2022-02-04 17:00 | Emergency (ER) | payer MEDICARE, MEDICAID, SELFPAY ==
[2022-02-04 18:30] VITALS: BP 139/90; PULSE 92; RESP 21; TEMP 36.8; O2SAT 97; BMI 39.4
--- NOTE | 2022-02-04 19:00 | EXP.UTC ---
Discharge Plan Disposition Patient Disposition: Home, Self-Care Condition: Good Prescriptions Prescriptions: New benzonatate 100 mg capsule 100 mg PO TID PRN (Reason: cough) Qty: 15 0RF azithromycin [Zithromax Z-Kiel] 250 mg tablet See Rx Instructions .ROUTE .COMPLEX 5 Days Qty: 6 0RF Rx Instructions: For 250 mg dose pack: take 500 mg today (day 1), then 250 mg for 4 days (days 2-5) prednisone [prednisone] 20 mg tablet 20 mg PO BID 5 Days Qty: 10 0RF guaifenesin [Mucinex] 600 mg tablet extended release 12hr 600 mg PO BID PRN (Reason: cough) Qty: 20 0RF No Action cetirizine 10 mg tablet 10 mg PO DAILY Qty: 90 1RF hydroxyzine pamoate [Vistaril] 25 mg capsule 25 mg PO TID PRN (Reason: itching) Qty: 60 0RF pantoprazole 40 mg tablet,delayed release (DR/EC) 40 mg PO DAILY Qty: 90 1RF gabapentin 600 mg tablet 600 mg PO TID Qty: 90 2RF hydrocodone-acetaminophen 5-325 mg tablet 1 tab PO Q6H PRN (Reason: pain) Qty: 120 0RF trazodone 150 mg tablet See Rx Instructions .ROUTE .COMPLEX Qty: 90 0RF Dose Instruction: TAKE ONE TABLET BY MOUTH AT BEDTIME NEEDED FOR INSOMNIA Rx Instructions: TAKE ONE TABLET BY MOUTH AT BEDTIME NEEDED FOR INSOMNIA spironolactone 25 MG tablet 50 mg PO DAILY furosemide 80 MG tablet 80 mg PO DAILY amlodipine 10 MG tablet 10 mg PO DAILY ferrous sulfate 325 mg (65 mg iron) tablet 325 mg PO DAILY metoprolol succinate 25 MG tablet extended release 24 hr 25 mg PO DAILY fluticasone propionate [Flonase Allergy Relief] 50 mcg/actuation spray,suspension 1 spray NS DAILY Rx Instructions: administer into each nostril fluticasone propionate 120 PUFFS HFA aerosol inhaler 1 puffs IH BID Vraylar 1.5 mg capsule 1.5 mg PO DAILY Referrals Follow up/Referrals: Tristen Brown APRN [Primary Care Provider] - See instructions Activity Restrictions/Add. Instructions Additional Instructions/Restrictions: Start antibiotic today. Be sure to complete entire prescription even if feeling better Monitor temp. Tylenol every 4 hours as needed and / or ibuprofen every 6 hours as needed ( As long as your primary care physician has told you that it ok to take both. For fever/aches/pains ER if no less than 101 despite Tylenol or Motrin Humidifier/vaporizer or hot steamy shower Mucinex during the day for your cough and cough suppressant only at night. Be sure to drink lots of water. Insurance may not cover a prescriptions for mucinex. Might be cheaper to get 400mg tablets and take 2 tablet in the morning, mid-day and evening with lots of water. *Start steroid tomorrow. Helps with inflammation therefore, cough and wheezing. Follow directions on the package. Reviewed side effects. Patient reports taking them before. Follow up IMMEDIATELY for new or worsening of symptoms OR no noticeable improvement over the next 48-72 hours. 911 immediately for any life threatening symptoms such as chest pain or difficulty breathing Clinical Impressions Clinical Impression: Bronchitis Sinusitis Qualifiers: Sinusitis location: unspecified location Chronicity: unspecified Qualified Code(s): J32.9 - Chronic sinusitis, unspecified Instructions Patient Instructions: Sinusitis, Acute Bronchitis, DI for Sinusitis Discharge ED Provider: Milagro Celaya [facility] [place] [place] HPI General Stated complaint: cough, congestion, sore throat, fever/chills Mode of Arrival: Ambulatory Source of Information: Patient Limitations: No Limitations Time Seen by Provider: 02/04/22 19:00 Description of Symptoms (Recalled from Triage Doc. by RN): PATIENT C/O DRY COUGH, CHEST CONGESTION, AND SOA X 1 WEEK HEENT Symptoms (Recalled from RN notes): No Resp Symptoms (Recalled from RN notes): Yes Skin Symptoms (Recalled from RN notes): No MS Symptoms (Recalled from RN notes): No Funct
[2022-02-04 19:25] LABS: UTC Influenza A Antigen Negative (Negative); UTC Influenza B Antigen Negative (Negative)
[2022-02-04 19:34] VITALS: BP 139/90; PULSE 92; RESP 21; TEMP 36.8; O2SAT 97
== END 2022-02-04 19:47 | disposition home or self-care (01) ==
PROVIDERS: Emergency Provider Nurse Practitioner; PCP Nurse Practitioner Family
DX: J40 Bronchitis, not specified as acute or chronic (principal); J32.9 Chronic sinusitis, unspecified
CPT/HCPCS: 87804; 96372; 99212; G0463; J0696

== ENCOUNTER 2022-03-01 17:25 | Emergency (ER) | payer MEDICARE, MEDICAID, SELFPAY ==
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
[2022-03-01 23:58] VITALS: BP 169/86; PULSE 91; RESP 18; TEMP 36.6; O2SAT 98; BMI 32.9
--- NOTE | 2022-03-01 23:58 | XR_ITS ---
PROCEDURE INFORMATION: Exam: XR Chest Exam date and time: 03/02/2022 2:31 AM Age: 66 years old Clinical indication: Dyspnea TECHNIQUE: Imaging protocol: Radiologic exam of the chest. Views: 1 view. COMPARISON: CR XR CHEST PORTABLE 01/07/2022 12:47 PM FINDINGS: Lungs: Unremarkable. No consolidation. Pleural spaces: Unremarkable. No pleural effusion. No pneumothorax. Heart/Mediastinum: Unremarkable. No cardiomegaly. Bones/joints: Unremarkable. IMPRESSION: No acute findings.
[2022-03-02 00:01] VITALS: BP 147/59; PULSE 82; O2SAT 95
[2022-03-02 01:11] LABS: Basophils # 0.1 K/mm3 (0-0.2); Basophils % 0.7 % (0.1-2.0); Eosinophils # 0.5 K/mm3 (0.0-0.4); Hematocrit 39.4 % (37.0-47.0); Hemoglobin 12.9 g/dL (12.2-16.2); Lymphocytes # 3.5 K/mm3 (0.7-4.5); Lymphocytes % 29.7 % (10-50); Mean Corpuscular HGB Conc 32.8 g/dL (31.8-35.4); Mean Corpuscular Hemoglobin 30.9 pg (27.0-31.2); Mean Corpuscular Volume 94.2 fl (81-99); Mean Platelet Volume 9.7 fl (7.4-10.4); Monocytes # 0.6 K/mm3 (0.1-1.0); Monocytes % 4.7 % (1.7-9.3); Neutrophils # 7.2 K/mm3 (1.8-7.8); Neutrophils % 60.9 % (37.0-80.0); Platelet Count 374 K/mm3 (142-424); Red Blood Count 4.19 M/mm3 (4.20-5.40); Red Cell Distribution Width 14.1 % (11.5-17.5); White Blood Count 11.8 K/mm3 (4.8-10.8)
--- NOTE | 2022-03-02 02:16 | PC.NURSE ---
RAD at for CXR
[2022-03-02 02:21] LABS: Coronavirus 19, PCR Not Detected (NotDetected); Influenza A, PCR Not Detected (NotDetected); Influenza B, PCR Not Detected (NotDetected)
[2022-03-02 03:05] VITALS: BP 146/60; PULSE 80; RESP 18; TEMP 36.6; O2SAT 98
== END 2022-03-02 03:08 | disposition home or self-care (01) ==
PROVIDERS: Emergency Provider Student in an Organized Health Care Education/Training Program; PCP Emergency Medicine
DX: R06.02 Shortness of breath (principal); J18.9 Pneumonia, unspecified organism; M54.9 Dorsalgia, unspecified; R07.9 Chest pain, unspecified; E11.9 Type 2 diabetes mellitus without complications; R06.00 Dyspnea, unspecified; Z87.891 Personal history of nicotine dependence; I10 Essential (primary) hypertension; E78.5 Hyperlipidemia, unspecified; Z82.49 Family history of ischemic heart disease and other diseases of the circulatory system; S49.92XA Unspecified injury of left shoulder and upper arm, initial encounter; S99.922A Unspecified injury of left foot, initial encounter; X97.XXXA Assault by smoke, fire and flames, initial encounter; Z20.822 Contact with and (suspected) exposure to COVID-19
CPT/HCPCS: 36415; 71045; 85025; 99284; C9803; U0003; U0005

== ENCOUNTER → 2022-04-10 23:00 | Outpatient (CLI) | payer MEDICARE, MEDICAID, SELFPAY ==
[2022-04-10 23:33] LABS: Amphetamine/Metha Screen,Urine Negative ng/ml (<1000); Barbiturates Screen,Urine Negative ng/ml (<200); Benzodiazepines Screen,Urine Negative ng/ml (<200); Cannabinoid Screen,Urine Negative ng/ml (<50); Cocaine Screen,Urine Negative ng/ml (<300); Methadone Screen,Urine Negative ng/ml (<300); Opiate Screen,Urine Negative ng/ml (<300); Phencyclidine Screen,Urine Negative ng/ml (<25)
== END ==
PROVIDERS: PCP Nurse Practitioner Family; Visit Provider Nurse Practitioner Family
DX: R40.0 Somnolence (principal); M54.50 Low back pain, unspecified; M25.561 Pain in right knee; Z79.899 Other long term (current) drug therapy
CPT/HCPCS: 80305

== ENCOUNTER 2022-04-21 12:25 | Observation (INO) | payer MEDICARE, MEDICAID, SELFPAY ==
[2022-04-21] VITALS (11 sets, daily range): BP systolic 165–187; BP diastolic 53–123; PULSE 64–76; RESP 14–20; TEMP 36.5; O2SAT 93–99; BMI 36.4; BMI 37.7
--- NOTE | 2022-04-21 12:36 | ECG_ITS ---
APPROVED REPORT Exam: Resting ECG HR:64 bpm ECG Measurements Heart Rate 64 AXES IA 151 P -16 QRSd 90 QRS -20 QT 428 T 6 QTc 438 Conclusion SINUS RHYTHM NORMAL ECG UNCONFIRMED REPORT Electronically signed by : Bennett Thomas MD 04/22/2022 18:54:00
[2022-04-21 12:48] LABS: Coronavirus 19, PCR Not Detected (NotDetected); Influenza A, PCR Not Detected (NotDetected); Influenza B, PCR Not Detected (NotDetected)
--- NOTE | 2022-04-21 12:48 | CT_ITS ---
PROCEDURE INFORMATION: Exam: CTA Head With Contrast, Arteriography Exam date and time: 04/21/2022 1:54 PM Age: 66 years old Clinical indication: Dizziness and giddiness TECHNIQUE: Imaging protocol: Computed tomographic angiography of the head with contrast. Exam focused on the arteries. 3D rendering (Not supervised by radiologist): MIP and/or 3D reconstructed images were created by the technologist. Radiation optimization: All CT scans at this facility use at least one of these dose optimization techniques: automated exposure control; mA and/or kV adjustment per patient size (includes targeted exams where dose is matched to clinical indication); or iterative reconstruction. Contrast material: ISOVUE; Contrast volume: 100 ml; Contrast route: INTRAVENOUS (IV); Other protocol: This patient has received 6 known CTs and 0 known cardiac nuclear medicine studies in the 12 months prior to the current study. COMPARISON: CT HEAD/BRAIN WO CON 04/21/2022 1:51 PM FINDINGS: ANTERIOR CIRCULATION: Right internal carotid artery: Partially calcified cavernous segment of the right internal carotid artery producing moderate stenosis. Right middle cerebral artery: Right middle cerebral artery is patent. No significant stenosis. No aneurysm. Right anterior cerebral artery: Right anterior cerebral artery is patent. No significant stenosis. No aneurysm. Left internal carotid artery: Partially calcified cavernous segment of the left internal carotid artery producing moderate stenosis. Left middle cerebral artery: Left middle cerebral artery is patent. No significant stenosis. No aneurysm. Left anterior cerebral artery: Left anterior cerebral artery is patent. No significant stenosis. No aneurysm. POSTERIOR CIRCULATION: Right vertebral artery: Right vertebral artery is unremarkable without flow-limiting stenosis. Left vertebral artery: Left vertebral artery is unremarkable without flow-limiting stenosis. Basilar artery: Basilar artery is patent. Right posterior cerebral artery: Right posterior cerebral artery is patent. No significant stenosis. No aneurysm. Left posterior cerebral artery: Left posterior cerebral artery is patent. No significant stenosis. No aneurysm. Cavernous Sinus: The dural venous sinuses and deep cerebral veins demonstrate normal flow. There is no evidence of venous sinus thrombosis. Brain: No definite mass, mass effect, or midline shift. Cerebral ventricles: No ventriculomegaly. Paranasal sinuses: Scattered mucosal thickening throughout the paranasal sinuses. Bones/joints: Unremarkable. No acute fracture. Soft tissues: Unremarkable. IMPRESSION: 1. No large vessel occlusion, aneurysm or other vascular lesions in the intracranial circulation. 2. No dural venous sinus thrombosis.
--- NOTE | 2022-04-21 12:48 | CT_ITS ---
PROCEDURE INFORMATION: Exam: CT Head Without Contrast Exam date and time: 04/21/2022 1:51 PM Age: 66 years old Clinical indication: Injury or trauma; Fall; Blunt trauma (contusions or hematomas); Without loss of consciousness; Additional info: BELLO, fall TECHNIQUE: Imaging protocol: Computed tomography of the head without contrast. Radiation optimization: All CT scans at this facility use at least one of these dose optimization techniques: automated exposure control; mA and/or kV adjustment per patient size (includes targeted exams where dose is matched to clinical indication); or iterative reconstruction. Other protocol: This patient has received 5 known CTs and 0 known cardiac nuclear medicine studies in the 12 months prior to the current study. COMPARISON: CT HEAD/BRAIN WO CON 06/20/2021 10:27 PM FINDINGS: Brain: Normal. No hemorrhage. Unremarkable white matter. No mass effect. Cerebral ventricles: No ventriculomegaly. Paranasal sinuses: Chronic left maxillary sinus mucosal thickening. Mastoid air cells: Visualized mastoid air cells are well aerated. Bones/joints: Unremarkable. No acute fracture. Soft tissues: Unremarkable. IMPRESSION: No acute intracranial abnormality. Chronic left maxillary sinusitis/congestion.
--- NOTE | 2022-04-21 12:48 | CT_ITS ---
PROCEDURE INFORMATION: Exam: CTA Neck With Contrast Exam date and time: 04/21/2022 1:54 PM Age: 66 years old Clinical indication: Dizziness and giddiness TECHNIQUE: Imaging protocol: Computed tomographic angiography of the neck 3D rendering (Not supervised by radiologist): MIP and/or 3D reconstructed images were created by the technologist. Radiation optimization: All CT scans at this facility use at least one of these dose optimization techniques: automated exposure control; mA and/or kV adjustment per patient size (includes targeted exams where dose is matched to clinical indication); or iterative reconstruction. Contrast material: ISOVUE; Contrast volume: 100 ml; Contrast route: INTRAVENOUS (IV); Other protocol: This patient has received 6 known CTs and 0 known cardiac nuclear medicine studies in the 12 months prior to the current study. Other technique: with contrast. COMPARISON: CT ANGIO CHEST PE PROTOCOL 06/20/2021 10:29 PM FINDINGS: Right common carotid artery: The right common carotid artery is widely patent. No stenosis. Right internal carotid artery: The right internal carotid artery is patent. No stenosis by NASCET criteria. No evidence of dissection. Right external carotid artery: No occlusion or stenosis of the origin. Left common carotid artery: The left common carotid artery is widely patent. No stenosis. Left internal carotid artery: The left internal carotid artery is patent. No stenosis by NASCET criteria. No evidence of dissection. Left external carotid artery: No occlusion or stenosis of the origin. Right vertebral artery: Right vertebral artery is unremarkable without flow-limiting stenosis. Left vertebral artery: Left vertebral artery is unremarkable without flow-limiting stenosis. Right subclavian artery: neckNo flow-limiting stenosis in the proximal right subclavian artery. Left subclavian artery: No flow-limiting stenosis in the proximal left subclavian artery. Soft tissues: Normal. No significant soft tissue swelling. Bones/joints: No acute fracture. IMPRESSION: No evidence of occlusion or dissection along the major cervical arteries. REFERENCES: NASCET CRITERIA. The degree of stenosis in the cervical segment of the internal carotid artery is based on NASCET criteria. Normal is no stenosis. Mild is less than 50% stenosis. Moderate is 50-69% stenosis. Severe is 70% to 99% stenosis. Total occlusion is no detectable patent lumen.
[2022-04-21 12:50] LABS: Basophils # 0.2 K/mm3 (0-0.2); Basophils % 1.5 % (0.1-2.0); Eosinophils # 0.5 K/mm3 (0.0-0.4); Eosinophils % 4.6 % (0.1-12.0); Hematocrit 43.5 % (37.0-47.0); Hemoglobin 14.3 g/dL (12.2-16.2); Lymphocytes % 29.7 % (10-50); Mean Corpuscular HGB Conc 32.8 g/dL (31.8-35.4); Mean Corpuscular Hemoglobin 30.3 pg (27.0-31.2); Mean Corpuscular Volume 92.3 fl (81-99); Monocytes # 0.4 K/mm3 (0.1-1.0); Monocytes % 4.2 % (1.7-9.3); Platelet Count 331 K/mm3 (142-424); Red Blood Count 4.71 M/mm3 (4.20-5.40); Red Cell Distribution Width 14.3 % (11.5-17.5)
--- NOTE | 2022-04-21 13:02 | PC.NURSE ---
ASSISTED CLEANING PT UP AFTER IN/OUT CATH PT RESTING CALL LIGHT AT BEDSIDE
[2022-04-21 13:06] LABS: Microscopic, Urine URINE MICROSCOPIC (MICROSCOPIC)
[2022-04-21 13:07] LABS: Chloride 107 mmol/L (98-107); Potassium 3.4 mmoL/L (3.5-5.1); Sodium 143 mmol/L (136-145)
[2022-04-21 13:10] LABS: Alanine Aminotransferase 16 U/L (12-78); Albumin Level 4.2 g/dl (3.5-5.0); Albumin/Globulin Ratio 1.3 (1.1-1.8); Alkaline Phosphatase 72 U/L (38-126); Anion Gap 9.4 mEq/L (5-15); Aspartate Amino Transferase 25 U/L (14-36); Bilirubin,Total 0.7 mg/dl (0.2-1.3); Blood Urea Nitrogen 17 mg/dl (7-17); Calcium 8.7 mg/dl (8.4-10.2); Carbon Dioxide 30 mmol/L (22.0-30.0); Creatinine Clearance Estimated 79 mL/min (50-200); Estimated Glomerular Filt Rate 50 ml/min (>60); GFR (African American) 60 ML/MIN (>60); Globulin 3.2 g/dL (1.3-3.2); Glucose 128 mg/dl (74-100); Total Protein,Serum 7.4 g/dl (6.3-8.2)
[2022-04-21 13:31] LABS: Troponin I < 0.01 ng/ml (0.00-0.034)
--- NOTE | 2022-04-21 13:37 | PC.NURSE ---
PT IS AT [facility] FOR CT CALLED SAID BASIL WAS NOT WORKING, JESSICA WU [facility] [employer] IS GOING TO RESTART BASIL
[2022-04-21 13:52] LABS: Appearance,Urine CLEAR (Clear); Bilirubin,Urine Negative (Negative); Blood, Urine Negative (Negative); Color,Urine YELLOW (Yellow); Glucose,Urine (UA) Negative (Negative); Ketones,Urine Negative (Negative); Leukocyte Esterase,Urine Negative (Negative); Nitrate,Urine Negative (Negative); PH,Urine 5.5 (5.0-8.5); Protein,Urine Negative (Negative); Specific Gravity, Urine >= 1.030 (1.005-1.030); Urobilinogen,Urine 0.2 EU/dl (0.2)
--- NOTE | 2022-04-21 13:55 | PC.NURSE ---
calling rad for update on CT scans
[2022-04-21 14:03] LABS: Bacteria,Urine Trace /lpf; RBC,Urine Occasional #/hpf (0-3); Squamous Epithelial Cell,Urine Occasional #/hpf (0-5); WBC,Urine Occasional #/hpf (0-3)
--- NOTE | 2022-04-21 14:21 | PC.NURSE ---
PT LAYING IN THE BED
--- NOTE | 2022-04-21 14:44 | PC.NURSE ---
PT FAMILY MEMBER AT BEDSIDE
--- NOTE | 2022-04-21 15:27 | PC.NURSE ---
Dr Barger speaking with Dr Dubois
--- NOTE | 2022-04-21 15:42 | EXP.HP ---
History of Present Illness *Admission Date: 04/21/22 *Reason for visit:: Generalized weakness *History of present illness: Ms. Paredes is a pleasant 66-year-old female with diabetes, arthritis, neuropathy, and hypertension who presents with numbness and tingling in her hands and feet and lips since this morning. States she had a similar episode a month ago. [place] weak in her legs today causing her to come to the ER. Denies any recent trauma, no other focal neurologic deficits. No changes in vision. No chest pain or shortness of breath. Has not eaten today or taking her medication. On arrival to the ER, work-up relatively unremarkable with normal CBC. CMP unremarkable except for creatinine elevated above baseline at 1.1. CT head unremarkable. No acute stroke findings. Given unexplained symptoms, patient's weakness, medicine consulted for admission for observation overnight. After arriving to the floor, patient appears relatively well. States she had a similar episode a month ago that resolved after 2 days. She does have anxiety and states that sometimes she will have anxiety attacks with similar symptoms. Of note her blood pressure is elevated at 175/85. She also has recently started taking Vraylar in the past month. Tolerating p.o. intake, no difficulty holding utensils or eating. No difficulty with speech. No dysarthria or mumbling. [facility] Disclaimer: The information contained in this section may have been updated after the patient was seen, as this information can be updated by other users. Medical History Anxiety Back Pain Bilateral knee pain Chest pain COPD (chronic obstructive pulmonary disease) Depression Diabetes 1.5, managed as type 2 Dyspnea Encounter for pre-operative cardiovascular clearance Ex-smoker Family history of heart disease GERD (gastroesophageal reflux disease) History of left heart catheterization HTN (hypertension) Hyperlipidemia Hypothyroid Migraine MELIA (obstructive sleep apnea) Type 2 diabetes mellitus Surgical History H/O: hysterectomy History of total left knee replacement Hx of tonsillectomy Family History Family history of cancer Family history of diabetes mellitus Family history of hypertension Family history of thyroid problem Family history of hyperlipidemia Social History Smoking Status: Former smoker pack-years: 12 alcohol intake: never substance use type: denies use current occupational status: retired Travel in the last 8 weeks: None household members: family housing: condominium current occupational exposures/hazards: No caffeine: Yes Review of Systems Review of Systems Review of systems (narrative): 14 point review of systems performed, pertinent positives and negatives as per HPI Meds Home Medications and Allergies Home Medications Medication Instructions Recorded Confirmed Type cetirizine 10 mg tablet 10 mg PO DAILY allergies #90 tabs 08/14/21 04/10/22 Rx hydroxyzine pamoate 25 mg capsule 25 mg PO TID PRN itching #60 caps 10/17/21 04/10/22 Rx (Vistaril) amlodipine 10 mg tablet 10 mg PO DAILY High blood pressure 11/10/21 04/10/22 History ferrous sulfate 325 mg (65 mg 325 mg PO DAILY Supplement 11/10/21 04/10/22 History iron) tablet fluticasone propionate 110 1 puffs inhalation BID COPD 11/10/21 04/10/22 History mcg/actuation HFA aerosol inhaler fluticasone propionate 50 1 spray intranasal DAILY Allergy 11/10/21 04/10/22 History mcg/actuation nasal symptoms spray,suspension (Flonase Allergy Relief) furosemide 80 mg tablet 80 mg PO DAILY fluid overload 11/10/21 04/10/22 History metoprolol succinate 25 mg 25 mg PO DAILY High blood pressure 11/10/21 04/10/22 History tablet,extended release 24 hr spironolactone 25 mg tab
--- NOTE | 2022-04-21 15:48 | HMH.EDGENADL ---
Discharge Plan Disposition Patient Disposition: Admitted As Inpatient Condition: Fair Chief Complaint: Weakness Prescriptions Prescriptions: No Action gabapentin 600 mg tablet 600 mg PO TID Qty: 90 2RF cetirizine 10 mg tablet 10 mg PO DAILY Qty: 90 1RF hydroxyzine pamoate [Vistaril] 25 mg capsule 25 mg PO TID PRN (Reason: itching) Qty: 60 0RF pantoprazole 40 mg tablet,delayed release (DR/EC) 40 mg PO DAILY Qty: 90 1RF Vraylar 1.5 mg capsule 1.5 mg PO DAILY Qty: 90 1RF hydrocodone-acetaminophen 5-325 mg tablet 1 tab PO Q6H PRN (Reason: pain) Qty: 120 0RF trazodone 150 mg tablet See Rx Instructions .ROUTE .COMPLEX Qty: 90 2RF Dose Instruction: TAKE ONE TABLET BY MOUTH AT BEDTIME NEEDED FOR INSOMNIA Rx Instructions: TAKE ONE TABLET BY MOUTH AT BEDTIME NEEDED FOR INSOMNIA ondansetron 4 mg tablet,disintegrating 4 mg PO Q8H Qty: 30 0RF spironolactone 25 MG tablet 50 mg PO DAILY furosemide 80 MG tablet 80 mg PO DAILY amlodipine 10 MG tablet 10 mg PO DAILY ferrous sulfate 325 mg (65 mg iron) tablet 325 mg PO DAILY metoprolol succinate 25 MG tablet extended release 24 hr 25 mg PO DAILY fluticasone propionate [Flonase Allergy Relief] 50 mcg/actuation spray,suspension 1 spray NS DAILY Rx Instructions: administer into each nostril fluticasone propionate 120 PUFFS HFA aerosol inhaler 1 puffs IH BID Referrals Follow up/Referrals: Tristen Brown APRN [Primary Care Provider] - See instructions Clinical Impressions Clinical Impression: Dizziness, Weakness Discharge ED Provider: Jose Guadalupe Barger General Adult HPI General Chief complaint: Weakness Stated complaint: NUMBNESS,TINGLY ALL OVER Time Seen by Provider: 04/21/22 15:57 Mode of Arrival: EMS Source of Information: Patient Limitations: Physical Limitations Description of Symptoms (Recalled from ER Triage Doc. by RN): Pt c/o generalized weakness and numbness and called EMS History of Present Illness HPI narrative: Patient presents to the emergency department with dizziness and profound weakness. The patient states that she is weak all over with tingling in her perioral region. She describes difficulty with ambulation secondary to her lower extremity weakness. She states that she was attempting to get out of bed approximately 1130 this morning and her legs were so weak that she was unable to stand. She describes weakness in her upper extremities as well. Patient states that she has neck pain which is new and she believes is not associated with her fall. Denies any recent illnesses, cough, congestion, fever or chills. Related Data Home Medications Medication Instructions Recorded Confirmed amlodipine 10 mg tablet 10 mg PO DAILY High blood pressure 11/10/21 04/10/22 ferrous sulfate 325 mg (65 mg 325 mg PO DAILY Supplement 11/10/21 04/10/22 iron) tablet fluticasone propionate 110 1 puffs inhalation BID COPD 11/10/21 04/10/22 mcg/actuation HFA aerosol inhaler fluticasone propionate 50 1 spray intranasal DAILY Allergy 11/10/21 04/10/22 mcg/actuation nasal symptoms spray,suspension (Flonase Allergy Relief) furosemide 80 mg tablet 80 mg PO DAILY fluid overload 11/10/21 04/10/22 metoprolol succinate 25 mg 25 mg PO DAILY High blood pressure 11/10/21 04/10/22 tablet,extended release 24 hr spironolactone 25 mg tablet 50 mg PO DAILY High blood pressure 11/10/21 04/10/22 Previous Rx's Medication Instructions Recorded cetirizine 10 mg tablet 10 mg PO DAILY allergies #90 tabs 08/14/21 hydroxyzine pamoate 25 mg capsule 25 mg PO TID PRN itching #60 caps 10/17/21 (Vistaril) pantoprazole 40 mg tablet,delayed 40 mg PO DAILY acid reflux #90 tabs 12/14/21 release gabapentin 600 mg tablet 600 mg PO TID Pain #90 tabs 03/07/22 trazodone 150 mg tablet See Rx Instructions .Route 03/08/22 .COMPLEX #90 tabs ondansetron 4 mg disintegrating 4 mg PO Q
[2022-04-21 16:02] LABS: Creatine Kinase 40 U/L (30-135)
[2022-04-21 16:07] LABS: C-Reactive Protein 23.2 mg/L (0-4)
--- NOTE | 2022-04-21 16:16 | PC.NURSE ---
Report called to [facility] inpt for transfer to rm 206, no further questions, will come down and transport pt
--- NOTE | 2022-04-21 17:03 | PC.NURSE ---
Addendum entered by GHADA Dalton 04/21/22 19:00: pt went to room 206 not 204 Original Note: KWADWO IS TAKING PT TO THE FLOOR TO ROOM 204
--- NOTE | 2022-04-21 17:06 | PC.NURSE ---
arrived by stretcher from ED
--- NOTE | 2022-04-21 17:11 | PC.NURSE ---
PT IS UNABLE TO RECALL HER HOME MEDS
[2022-04-21 17:54] LABS: Erythrocyte Sedimentation Rate 63 mm/hr (0-30)
[2022-04-21 18:25] LABS: Hemoglobin A1C 5.6 % (4.0-6.0)
--- NOTE | 2022-04-21 18:34 | PC.NURSE ---
NEW ADMIT THIS SHIFT. NO COMPLAINTS SINCE ARRIVAL TO FLOOR. HYPERTENSIVE ON ADMISSION DR [place] ORDERED PO CARVEDILOL. PT/OT EVAL TOMORROW AND POSSIBLE D/C
[2022-04-22 04:00] VITALS: BP 171/65; PULSE 72; RESP 18; TEMP 36.8; O2SAT 92; BMI 37.7
--- NOTE | 2022-04-22 06:40 | PC.NURSE ---
Pt. is aox 4 up with assist times one to bsc. WILL PT and OT evaluate here today.
[2022-04-22 07:06] LABS: Basophils # 0.1 K/mm3 (0-0.2); Eosinophils # 0.5 K/mm3 (0.0-0.4); Eosinophils % 4.9 % (0.1-12.0); Red Cell Distribution Width 14.1 % (11.5-17.5)
[2022-04-22 07:10] LABS: Basophils % 1.4 % (0.1-2.0); Hematocrit 37.9 % (37.0-47.0); Lymphocytes # 3.6 K/mm3 (0.7-4.5); Lymphocytes % 39.4 % (10-50); Mean Corpuscular HGB Conc 32.3 g/dL (31.8-35.4); Mean Corpuscular Hemoglobin 30.3 pg (27.0-31.2); Mean Corpuscular Volume 93.9 fl (81-99); Mean Platelet Volume 10.2 fl (7.4-10.4); Monocytes # 0.4 K/mm3 (0.1-1.0); Monocytes % 4.6 % (1.7-9.3); Neutrophils # 4.5 K/mm3 (1.8-7.8); Neutrophils % 49.6 % (37.0-80.0); Platelet Count 314 K/mm3 (142-424); Red Blood Count 4.04 M/mm3 (4.20-5.40); White Blood Count 9.1 K/mm3 (4.8-10.8)
[2022-04-22 07:11] LABS: Hemoglobin 12.2 g/dL (12.2-16.2)
[2022-04-22 07:16] LABS: Chloride 109 mmol/L (98-107); Potassium 3.7 mmoL/L (3.5-5.1); Sodium 143 mmol/L (136-145)
[2022-04-22 07:19] LABS: Alanine Aminotransferase 16 U/L (12-78); Albumin Level 3.4 g/dl (3.5-5.0); Albumin/Globulin Ratio 1.2 (1.1-1.8); Anion Gap 8.7 mEq/L (5-15); Aspartate Amino Transferase 20 U/L (14-36); Blood Urea Nitrogen 12 mg/dl (7-17); Carbon Dioxide 29 mmol/L (22.0-30.0); Creatinine Clearance Estimated 81 mL/min (50-200); Estimated Glomerular Filt Rate 50 ml/min (>60); GFR (African American) 60 ML/MIN (>60); Globulin 2.8 g/dL (1.3-3.2); Glucose 132 mg/dl (74-100); Magnesium 2.2 mg/dl (1.6-2.3); Total Protein,Serum 6.2 g/dl (6.3-8.2)
[2022-04-22 07:20] LABS: Alkaline Phosphatase 74 U/L (38-126); Bilirubin,Total 0.2 mg/dl (0.2-1.3)
[2022-04-22 08:00] VITALS: BP 181/82; PULSE 74; RESP 18; TEMP 36.8; O2SAT 92
--- NOTE | 2022-04-22 09:05 | HMH.PTEV ---
Physical Therapy Evaluation Rehab PT IP Evaluation Start: 04/21/22 15:41 Freq: ONCE Status: Active Protocol: Document 04/22/22 08:47 LAURACARA (Rec: 04/22/22 09:05 JOSELISA [id number]) Subjective/History History History Pt is a 66 y/o female who reported to [facility] ER on 04/21/22 with complaints of dizziness, LE weakness, and paresthesia of bilateral hands, feet, and perioral region. Per arrival to the ER, work-up relatively unremarkable with normal CBC. CMP unremarkable except for creatinine elevated above baseline at 1.1. CT head unremarkable. No acute stroke findings. Pt was admitted for overnight observation due to unexplained symptoms and weakness with medicine consulted. Pt reported similiar episode that happened about a month ago that resolved in a couple days. Medical History: Type II Diabetes, anxiety, arthritis, neuropathy, hypertension, COPD Subjective Subjective Pt reports prior to hospitalization, she lived alone in a 1 story home with a ramp to enter. Pt reports she took care of herself and used a standard walker for ambulation. Pt reports her legs have been feeling weak and she fell ~2 weeks ago, denies serious injuries from the fall. Pt reports current back pain, bilateral leg tenderness and numbness of her feet/hands. Pt reports her legs feel wobbly but she would like to sit up in the chair for awhile. Pt sat EOB with minAx1 with some complaint of dizziness that improved with rest. Pt reports she does not feel safe returning home alone right now . Rehab PT IP Eval Objectiv
[2022-04-22 09:40] VITALS: BP 150/65
--- NOTE | 2022-04-22 09:53 | HMH.PHAINT1 ---
Pharmacy Intervention Comments: medication reconciliation completed using external fill history
--- NOTE | 2022-04-22 10:09 | SW/DCPLANNER ---
Addendum entered by Ana Ayala RN 04/23/22 15:14: Mike Vang @ [facility], services will begin on . Addendum entered by La Hammond 04/23/22 12:35: [facility] is unable to accept this patient due to staffing. Patient information/order has been faxed to [facility]. Addendum entered by [facility] 04/23/22 10:54: Patient has been approved for [facility] but they will not have a bed opened till tomorrow. Patient ambulated 75 ft today with PT and prefers to return home with [facility]. Patient information/order will be faxed to [facility]. Patient will discharge home today and will have transportation. Addendum entered by La Hammond 04/22/22 13:10: Ngoc mary/ [facility] has stated that precert has been started for this patient. I will update patient and MD. Addendum entered by La Hammond 04/22/22 12:37: [facility] has requested additional information: info faxed. Addendum entered by La Hammond 04/22/22 10:11: I have also faxed information to [place] at this time incase [facility] can not meet patient needs. Original Note: I spoke with this patient regarding plans once medically stable for discharge. PT/OT recommended placement once medically stable for discharge. Patient stated that she has been to [facility] in the past and would prefer to return there at time of discharge. Patient stated that if [facility] is unable to accept her she would be agreeable to [place], [facility] or [facility]. Patient information has been faxed to [facility].
--- NOTE | 2022-04-22 10:29 | HMH.OTEV ---
OT Inpatient Evaluation Rehab OT IP Evaluation Start: 04/21/22 15:41 Freq: ONCE Status: Active Protocol: Document 04/22/22 10:14 JACKI (Rec: 04/22/22 10:29 JACKI [id number]) Rehab OT IP Assessment Subjective History Ms. Paredes is a pleasant 66- year-old female with diabetes, arthritis, neuropathy, and hypertension who presents with numbness and tingling in her hands and feet and lips since this morning. States she had a similar episode a month ago. [place] weak in her legs today causing her to come to the ER. Denies any recent trauma, no other focal neurologic deficits. No changes in vision. No chest pain or shortness of breath. Has not eaten today or taking her medication. On arrival to the ER, work-up relatively unremarkable with normal CBC. CMP unremarkable except for creatinine elevated above baseline at 1.1. CT head unremarkable. No acute stroke findings. Given unexplained symptoms, patient's weakness, medicine consulted for admission for observation overnight. After arriving to the floor, patient appears relatively well. States she had a similar episode a month ago that resolved after 2 days. She does have anxiety and states that sometimes she will have anxiety attacks with similar symptoms. Of note her blood pressure is elevated at 175/85. She also has recently started taking Vraylar in the past month. Tolerating p.o. intake, no difficulty holding utensils or eating. No difficulty with speech. No dysarthria or mumbling. P
[2022-04-22 11:24] VITALS: BP 157/67; PULSE 72; RESP 20; TEMP 37; O2SAT 93
[2022-04-22 14:49] VITALS: BMI 37.4
--- NOTE | 2022-04-22 15:38 | PC.NURSE ---
Upon making rounds, the patient had laid both of her IVs on her night stand. Patient stated, they came out when I was washing my arm . No bleeding for hematomas noted to her right arm. IVs were both in the right arm.
[2022-04-22 16:00] VITALS: BP 146/61; PULSE 70; RESP 18; TEMP 36.8; O2SAT 94
[2022-04-22 20:00] VITALS: BP 122/71; PULSE 68; RESP 18; TEMP 36.3; O2SAT 93
--- NOTE | 2022-04-22 20:01 | EXP.ACUTE.PN ---
Subjective *Date: 04/22/22 *Time: 20:05 Interval history: Patient feeling nervous this morning, concerned that she may have to go to rehab and worried about his cannot take care of her cat. Denies any worsening weakness or neuropathy. Tolerating p.o. intake well. Using walker to ambulate to bathroom. No chest pain, shortness of breath, nausea or vomiting. No focal neurologic deficits. Medical Exam Vital signs and Labs for Last 24 Hours: Vital Signs Temp Pulse Resp BP Pulse Ox 04/22/22 16:00 98.3 F 70 18 146/61 H 94 L 04/22/22 11:24 98.6 F 72 20 157/67 H 93 L 04/22/22 09:40 150/65 H 04/22/22 08:00 98.3 F 74 18 181/82 H 92 L 04/22/22 04:00 98.2 F 72 18 171/65 H 92 L Intake and Output 04/22/22 04/22/22 04/22/22 07:59 15:59 23:59 Intake Total 1000 / 2440 960 / 2440 480 / 2440 Output Total 500 / 1650 450 / 1650 700 / 1650 Balance 500 / 790 510 / 790 -220 / 790 Intake: Intake, Oral Amount 960 / 1440 480 / 1440 Intake, Total IV Amount 1000 / 1000 Ringers Solution,Lactated 1,000 1000 / 1000 ml @ 125 mls/hr IV .Q8H JED Rx #:[id number] Infusion Intake 0 / 0 Ringers Solution,Lactated 1,000 0 / 0 ml @ 125 mls/hr IV .Q8H JED Rx #:[id number] Output: Output, Urine Amount 500 / 1650 450 / 1650 700 / 1650 Other: Number of Unmeasured Voids 1 Number of Bowel Movements 1 Weight 102.603 kg 102 kg Patient Weight 04/22/22 23:59 Weight 102 kg Laboratory Results - last 24 hr 04/22/22 06:20: WBC 9.1, RBC 4.04 L, Hgb 12.2 D, Hct 37.9, MCV 93.9, MCH 30.3, MCHC 32.3, RDW 14.1, Plt Count 314, MPV 10.2, Neut % (Auto) 49.6, Lymph % (Auto) 39.4, [place] % (Auto) 4.6, Eos % (Auto) 4.9, Baso % (Auto) 1.4, Neut # (Auto) 4.5, Lymph # (Auto) 3.6, [place] # (Auto) 0.4, Eos # (Auto) 0.5 H, Baso # (Auto) 0.1 04/22/22 06:20: Sodium 143, Potassium 3.7, Chloride 109 H, Carbon Dioxide 29, Anion Gap 8.7, BUN 12 D, Creatinine 1.10 H, Estimated Creat Clear 81, Estimated GFR 50 L, Est GFR ( Amer) 60, Glucose 132 H, Calcium 8.0 L, Magnesium 2.2, Total Bilirubin 0.2, AST 20, ALT 16, Alkaline Phosphatase 74, Total Protein 6.2 L, Albumin 3.4 L D, Globulin 2.8, Albumin/Globulin Ratio 1.2 I & O for Labs for Last 24 Hours: Intake & Output 04/19/22 04/20/22 04/21/22 04/22/22 23:59 23:59 23:59 23:59 Intake Total 480 / 480 2440 / 2440 Output Total 600 / 600 1650 / 1650 Balance -120 / -120 790 / 790 Weight 102.767 kg 102 kg Constitutional: Present no acute distress, obese and chronically ill appearing Head: Present atraumatic and normocephalic ENT: Present normal exam Neck: Present normal inspection Respiratory: Present normal respiratory effort; Absent accessory muscle use, rhonchi, wheezes or crackles Cardiac: Present Reg Rate and Rhythm GI: Present soft and normal bowel sounds; Absent distention or tenderness Extremities: Present normal inspection and full ROM (strength 4/5 in BLE) Skin: Present intact; Absent erythema Neuro: Present Cranial Nerve 2-12 Intact, Grossly Intact, alert, awake, oriented x 3 and moves all extremities Assessment and Plan *Assessment and plan (1) Weakness: Status: Acute Category: Medical Code(s): R53.1 - Weakness (2) Distal paresthesia: Status: Acute Category: Medical Code(s): R20.2 - Paresthesia of skin (3) HTN (hypertension): Status: Chronic Qualifiers: Hypertension type: essential hypertension Category: Medical Code(s): I10 - Essential (primary) hypertension (4) MILAD (acute kidney injury): Status: Acute Category: Medical Code(s): N17.9 - Acute kidney failure, unspecified (5) Fall: Status: Acute Qualifiers: Encounter type: initial encounter Qualified Code(s): W19.XXXA - Unspecified fall, initial encounter Category: Medical Code(s): W19.XXXA - Unspecified fall, initial encounter (6) An
[2022-04-23] VITALS: BP 169/57; PULSE 68; RESP 18; TEMP 37; O2SAT 96
[2022-04-23 03:46] VITALS: BP 147/77; PULSE 76; RESP 18; TEMP 36.7; O2SAT 94
[2022-04-23 04:00] VITALS: BMI 37.8
--- NOTE | 2022-04-23 06:04 | PC.NURSE ---
NO ACUTE CHANGES SINCE PREVIOUS ASSESSMENT. PT HAS SLEPT INTERMITTENTLY THIS SHIFT. PT HAS C/O PAIN X2 THIS SHIFT AND HAS BEEN MEDICATED PER MAR FOR PAIN WITH ADEQUATE RELIEF. AMBULATING TO BSC INDEPENDENTLY. REMAINS ON ROOM AIR. VSS.
[2022-04-23 07:36] LABS: Basophils # 0.1 K/mm3 (0-0.2); Eosinophils # 0.5 K/mm3 (0.0-0.4); Eosinophils % 4.5 % (0.1-12.0); Hematocrit 39.3 % (37.0-47.0); Hemoglobin 12.3 g/dL (12.2-16.2); Lymphocytes # 3.4 K/mm3 (0.7-4.5); Mean Corpuscular HGB Conc 31.3 g/dL (31.8-35.4); Mean Corpuscular Hemoglobin 29.3 pg (27.0-31.2); Mean Corpuscular Volume 93.5 fl (81-99); Mean Platelet Volume 10.5 fl (7.4-10.4); Monocytes # 0.5 K/mm3 (0.1-1.0); Monocytes % 4.7 % (1.7-9.3); Neutrophils # 5.8 K/mm3 (1.8-7.8); Neutrophils % 56.9 % (37.0-80.0); Platelet Count 331 K/mm3 (142-424); Red Blood Count 4.21 M/mm3 (4.20-5.40); Red Cell Distribution Width 14.1 % (11.5-17.5); White Blood Count 10.2 K/mm3 (4.8-10.8)
[2022-04-23 07:45] LABS: Chloride 107 mmol/L (98-107); Potassium 3.8 mmoL/L (3.5-5.1); Sodium 140 mmol/L (136-145)
[2022-04-23 07:47] LABS: Blood Urea Nitrogen 13 mg/dl (7-17); Creatinine Clearance Estimated 90 mL/min (50-200); Estimated Glomerular Filt Rate 63 ml/min (>60); GFR (African American) 76 ML/MIN (>60)
[2022-04-23 07:48] LABS: Alanine Aminotransferase 17 U/L (12-78); Albumin Level 3.6 g/dl (3.5-5.0); Albumin/Globulin Ratio 1.3 (1.1-1.8); Alkaline Phosphatase 76 U/L (38-126); Anion Gap 8.8 mEq/L (5-15); Aspartate Amino Transferase 27 U/L (14-36); Bilirubin,Total 0.2 mg/dl (0.2-1.3); Calcium 8.2 mg/dl (8.4-10.2); Carbon Dioxide 28 mmol/L (22.0-30.0); Globulin 2.8 g/dL (1.3-3.2); Glucose 169 mg/dl (74-100); Magnesium 2.1 mg/dl (1.6-2.3); Total Protein,Serum 6.4 g/dl (6.3-8.2)
[2022-04-23 08:00] VITALS: BP 148/63; PULSE 79; RESP 17; TEMP 36.7; O2SAT 96
--- NOTE | 2022-04-23 10:59 | EXP.DC.SUM ---
General Admission date:: 04/21/22 Discharge date: 04/23/22 HPI HPI HPI: Ms. Paredes is a pleasant 66-year-old female with diabetes, arthritis, neuropathy, and hypertension who presents with numbness and tingling in her hands and feet and lips since this morning. States she had a similar episode a month ago. [place] weak in her legs today causing her to come to the ER. Denies any recent trauma, no other focal neurologic deficits. No changes in vision. No chest pain or shortness of breath. Has not eaten today or taking her medication. On arrival to the ER, work-up relatively unremarkable with normal CBC. CMP unremarkable except for creatinine elevated above baseline at 1.1. CT head unremarkable. No acute stroke findings. Given unexplained symptoms, patient's weakness, medicine consulted for admission for observation overnight. After arriving to the floor, patient appears relatively well. States she had a similar episode a month ago that resolved after 2 days. She does have anxiety and states that sometimes she will have anxiety attacks with similar symptoms. Of note her blood pressure is elevated at 175/85. She also has recently started taking Vraylar in the past month. Tolerating p.o. intake, no difficulty holding utensils or eating. No difficulty with speech. No dysarthria or mumbling. Hospital Course Hospital Course Hospital Course: Ms. Paredes is a pleasant 66-year-old female with elevated blood pressure and mild elevation in kidney function on presentation.? Reports weakness and paresthesia.? Admitted for observation overnight.? Differential diagnosis includes hypertensive urgency, medication side effect, transverse myelitis, anxiety attack.? Symptoms improved with treatment of blood pressure. Evaluated by PT. Patient able to ambulate with a walker. Independent. Stable for discharge home with home health. Problems addressed as follows: Weakness Paresthesia -Unclear etiology at this time however differential includes hypertensive urgency given elevated blood pressure, medication side effect as the timing correlates to the recent initiation of Vraylar, anxiety as she states she had similar symptoms with anxiety in the past.? Saw improvement during admission with treatment of her blood pressure and holding Vraylar. Was evaluated by PT and OT. Initially recommended retirement however had improvement over last 24 hours of admission and able to ambulate with walker. Get up independently. Stable for discharging home with home health. Hypertension -Initially elevated with systolics in the 180s on admission. Improved with adjustment of blood pressure regimen. Continue metoprolol 25 mg and amlodipine 10 mg daily. Initiated on irbesartan with biggest improvement in blood pressure. Continue this regimen at discharge. Need close follow-up with PCP to continue to monitor and make further adjustments. Evaluated for diabetes. A1c normal at 5.6. Neuropathy -Continue home gabapentin.? Concerned that her neuropathy is worsening and that is a source for her peripheral paresthesia/tingling. Continue hydrocodone for chronic pain. Anxiety -Symptoms appear to have occurred with initiation of Vraylar.? Held Vraylar during admission. Continue hydroxyzine as needed. Initiated on Zoloft during admission. Continue 50 mg daily. Further adjustments as an outpatient. Anxiety underlies and complicates her symptoms as the symptoms are worse when her anxiety is worse. Further adjustment with PCP. Obesity complicates all aspects of her care. Spent 40 minutes in discharge counseling and direct care with patient. Exam Data for Last 24 hours Vital signs and Labs for Last 24 Hours: Temp Pulse Resp BP Pulse Ox 98.0 F 79 17 148/63 H 96 04/23/22 08:00 04/23/22 08:00 04/23/22 08:00 04/23/22 08:00 04/23/22 08:00 Laboratory Results - last 24 hr 04/23/22 06:15: WBC 10.2, RBC 4.21, Hgb 12.3, Hct 39.3, MCV 93.5, MCH 29.3, MC
[2022-04-23 11:10] VITALS: BP 163/57; PULSE 62; RESP 18; TEMP 36.6; O2SAT 96
--- NOTE | 2022-04-23 11:34 | [facility].PHAINT1 ---
Pharmacy Intervention Comments: Discussed discharge medications with patient. Patient verbalized understanding and had no questions at this time.
--- NOTE | 2022-04-24 10:31 | CARE MANAGER ---
Left message for post-discharge phone interview, no answer and voicemail is full.
--- NOTE | 2022-04-25 11:56 | CARE MANAGER ---
Spoke with patient for post-discharge phone interview.
== END 2022-04-23 13:10 | disposition home health service (06) ==
LOC: ER 15:57 → 2ND 15:57
PROVIDERS: Admitting Provider Internal Medicine Adolescent Medicine; Emergency Provider Emergency Medicine; PCP Nurse Practitioner Family; Visit Provider Internal Medicine Adolescent Medicine
DX: R53.1 Weakness (principal); I10 Essential (primary) hypertension; N17.9 Acute kidney failure, unspecified; E78.5 Hyperlipidemia, unspecified; F41.9 Anxiety disorder, unspecified; E13.9 Other specified diabetes mellitus without complications; Z20.822 Contact with and (suspected) exposure to COVID-19; Z79.899 Other long term (current) drug therapy; W01.0XXA Fall on same level from slipping, tripping and stumbling without subsequent striking against object, initial encounter; Y92.019 Unspecified place in single-family (private) house as the place of occurrence of the external cause
CPT/HCPCS: G0378; 36415; 70450; 70496; 70498; 80053; 81001; 82550; 83036; 83735; 84484; 85025; 85651; 86140; 93005; 97110; 97116; 97162; 97165; 97535; 99285; C9803; Q9967; U0003; U0005